=== PATIENT | female | born 1985 | race Caucasian/White ===

== ENCOUNTER 2019-12-08 18:00 | Emergency (ER) | payer OTHER ==
--- OUTSIDE RECORDS SUMMARY | 2019-12-08 18:03 | XMS REPORT | Clinical Summary ---
:1985 Author Organization [facility] Address [address] [place] [address] Care Team Providers Name Role Phone Alaina Zavala MD Primary Care Provider Unavailable Allergies Active Allergy Reactions Severity Noted Date Comments Morphine Other (See Comments) Medium 01/02/2018 Severe vomiting Medications Medication Sig Dispensed Refills Start Date End Date Status ARIPiprazole Inject 1,064 0 Acti ve lauroxil mg into the (ARISTADA) 1,064 shoulder, mg/3.9 mL thigh, or suspension,extend buttocks. ed rel syring [id number] Take 1 tablet 0 02/09/2019 Acti ve carb,olb-BP-iyv-d by mouth dupont (CITRANATAL 90 daily. DHA, ALGAL OIL,) 90 mg iron-1 mg -50 mg-300 mg combo pack busPIRone buspirone 30 mg tablet 0 02/09/2019 Active (BUSPAR) 30 MG TAKE 1 TABLET BY MOUTH THREE TIMES DAILY FOR ANXIETY tablet busPIRone Take 5 mg by 0 Discont inued (BUSPAR) 5 MG mouth 3 9 (Stop Taking at tablet (three) times Discha rge) a day. gabapentin Take 600 mg by 0 Disc ontinued (NEURONTIN) 600 mouth 3 9 (Sto p Taking at mg tablet (three) times Discha rge) a day. ARIPiprazole Take 5 mg by 0 Disc ontinued (ABILIFY) 5 MG mouth daily. 9 (S top Taking at tablet Discharge) buPROPion XL Take 300 mg by 0 Di scontinued (WELLBUTRIN XL) mouth daily. 9 ( Stop Taking at 300 MG 24 hr Dischar ge) tablet buPROPion XL Take 150 mg by 0 Di scontinued (WELLBUTRIN XL) mouth daily. 9 ( Stop Taking at 150 MG 24 hr Dischar ge) tablet ARIPiprazole Take 5 mg by 0 Disc ontinued (ABILIFY) 5 MG mouth daily. 9 (S top Taking at tablet Discharge) buPROPion XL Take 150 mg by 0 Di scontinued (WELLBUTRIN XL) mouth. 9 (Sto p Taking at 150 MG 24 hr Dischar ge) tablet azithromycin Take 1 tablet 3 tablet 0 04/28/2019 Ex pired (ZITHROMAX) 500 (500 mg total) 9 MG tablet by mouth daily for 3 days. oseltamivir Take 1 capsule 10 capsule 0 04/28/2019 E xpired (TAMIFLU) 75 MG (75 mg total) 9 capsule by mouth 2 (two) times a day for 5 days. buPROPion XL Take 1 tablet 30 tablet 0 04/29/2019 Ex pired (FORFIVO XL) 450 (450 mg total) 0 mg 24 hr tablet by mouth daily for 30 days. busPIRone Take 1 tablet 90 tablet 0 04/28/2019 Expir ed (BUSPAR) 30 MG (30 mg total) 0 tablet by mouth 3 (three) times a day for 30 days. Active Problems Problem Noted Date 29 weeks gestation of 04/27/2019 Advanced maternal age in multigravida, third trimester 04/27/2019 Previous section complicating 04/27 Abdominal pain during in third trimester 04/2019 Maternal tobacco use, third trimester 04/27/2019 Influenza A 04/27/2019 affected by growth restriction 019 Tobacco smoking affecting in third trimester 04/27/2019 Respiratory system disease complicating in t hird trimester 04/27/2019 GERD (gastroesophageal reflux disease) 04/27/2019 Cough 04/26/2019 Fever and chills 04/26/2019 Encounters Date Type Specialty Care Team Description 04/26/2019 - Emergency Obstetrics and Gynecology Micheline Albert MD 04/28/2019 after 12/07/2018 Immunizations Name Administration Dates Next Due Rho (D) Immune Globulin 01/02/2018 Social History Tobacco Use Types Packs/Day Years Used Date Current Every Day Smoker Cigarettes 0.5 Smokeless Tobacco: Never Used Tobacco Cessation: Ready to Quit: Yes Comments: pt states she is trying to ottoniel t Alcohol Use Drinks/Week oz/Week Comments Not Currently Sex Assigned at Date Recorded Not on file Job Start Date Occupation Industry Not on file Not on file Not on file Travel History Travel Start Travel End No recent travel history available. Last Filed Vital Signs Vital Sign Reading Time Taken Comments Blood Pressure 106/56 04/28/2019 9:08 AM [employer]IOR SYSTEMS DEVELOPER Pulse 95 04/28/2019 9:08 AM [employer]IOR SYSTEMS DEVELOPER Temperature 36.9 C (98.5 F) 04/28/2019 9:08 AM S[employer]IOR SYSTEMS DEVELOPER Respiratory Rate 20 04/28/2019 9:08 AM SENIOR SYSTEMS DEVELOPER Oxygen Saturation 96% 04/28/2019 8:02 AM SENIOR SYSTEMS DEVELOPER Inhaled Oxygen Concentration - - Weight 83.9 kg (185 lb) 04/26/2019 11:15 PM S[employer]IOR SYSTEMS DEVELOPER Height 157.5 cm (5' 2") 04/26/2019 11:15 PM S[employer]IOR SYSTEMS DEVELOPER Body Mass Index 33.84 04/26/2019 11:15 PM SENIOR SYSTEMS DEVELOPER Plan of Treatment Health Maintenance Due Date Last Done Comments CERVICAL CANCER SCREENING 2004 INFLUENZA VACCINE 12/16/2019 03/13/2019, 05/17/2014 Procedures Procedure Name Priority Date/Time Associated Comments Diagnosis ESTIMATED GFR Routine 04/28/2019 4:48 Results fo r this AM S[employer]IOR SYSTEMS DEVELOPER procedure are i n the results section. BASIC METABOLIC PANEL Routine 04/28/2019 4:48 Re sults for this AM S[employer]IOR SYSTEMS DEVELOPER procedure are i n the results section. HC COMPLETE BLD COUNT Routine 04/28/2019 4:48 Re sults for this W/AUTO DIFF AM S[employer]IOR SYSTEMS DEVELOPER procedure are i n the results section. US LIMITED STAT 04/27/2019 4:39 Res ults for this AM SENIOR SYSTEMS DEVELOPER procedure are i n the results section. XR CHEST 2 VW STAT 04/27/2019 2:51 Results fo r this AM SENIOR SYSTEMS DEVELOPER procedure are i n the results section. ESTIMATED GFR STAT 04/27/2019 12:28 Results fo r this AM S[employer]IOR SYSTEMS DEVELOPER procedure are i n the results section. COMPREHENSIVE STAT 04/27/2019 12:28 Results fo r this METABOLIC PANEL AM SENIOR SYSTEMS DEVELOPER procedure ar e in the results section. HC COMPLETE BLD COUNT STAT 04/27/2019 12:28 Re sults for this W/AUTO DIFF AM S[employer]IOR SYSTEMS DEVELOPER procedure are i n the results section. GRAM STAIN STAT 04/27/2019 12:24 Results for this AM SENIOR SYSTEMS DEVELOPER procedure are i n the results section. URINE CULTURE STAT 04/27/2019 12:24 Results fo r this AM SENIOR SYSTEMS DEVELOPER procedure are i n the results section. STREP SCREEN CULTURE Routine 04/26/2019 11:55 Res ults for this PM S[employer]IOR SYSTEMS DEVELOPER procedure are i n the results section. GROUP A STREP, RAPID STAT 04/26/2019 11:55 Res ults for this ANTIGEN PM SENIOR SYSTEMS DEVELOPER procedure are i n the results section. INFLUENZA ANTIGEN STAT 04/26/2019 11:55 Result s for this TEST, REFLEX NEGATIVE PM SENIOR SYSTEMS DEVELOPER proced ure are in TO RPP the results section. URINE DRUGS OF ABUSE STAT 04/26/2019 11:54 Res ults for this SCREEN PM S[employer]IOR SYSTEMS DEVELOPER procedure are i n the results section. URINALYSIS SCREEN AND STAT 04/26/2019 11:54 Re sults for this MICROSCOPY, WITH PM SENIOR SYSTEMS DEVELOPER procedure a re in REFLEX TO CULTURE the result s section. after 12/07/2018 Results Estimated GFR (04/28/2019 4:48 AM SENIOR SYSTEMS DEVELOPER)Only the most recent of2 resultswithin the time period is included. Pathologist [facility] [place] Estimated GFR >=90 mL/min/1.73 [facility] Comment: m2 [facility] Catergory Units Interpretation G1 >=90 Normal or high G2 60-89 Mildly decreased G3a 45-59 Mildly to moderately decreas ed G3b 30-44 Moderately to severely decre ased G4 15-29 Severely decreased G5 <15 Kidney failure The eGFR was calculated using the Chronic Kidney Disea se Epidemiology Collaboration (CKD-EPI) equation. Interpretation is based on recommendations of the National Kidney Foundation-Kidney Disease Outcomes Solitario lity Initiative (NKF-KDOQI) published in 2014. Specimen Plasma specimen Performing Organization Address City/State/Zipcode Phone Number [facility] DEPARTMENT OF PATHOLOGY AND [address] [place], [place] [address] [facility]IC MEDICINE [facility] [address] [place], [place] [address] CBC with platelet and differential (04/28/2019 4:48 AM SENIOR SYSTEMS DEVELOPER)Only the most recent of2 resultswithin the time period is included. WBC 8.9 4.2 - 11.0 k/uL [facility] RBC 2.90 (L) 4.04 - 5.86 [facility] m/uL [facility] HGB 9.4 (L) 11.5 - 15.3 [facility] g/dL [facility] HCT 28.7 (L) 34.0 - 45.0 % [facility] MCV 99.0 (H) 80.0 - 98.0 fL [facility] MCH 32.4 27.0 - 34.0 pg [facility] MCHC 32.8 31.5 - 36.5 [facility] g/dL [facility] RDW - SD 45.3 37.0 - 51.0 fL [facility] MPV 11.9 (H) 7.4 - 10.4 fL [facility] Platelet count 169 150 - 400 k/uL [facility] Nucleated RBC 0.00 /100 WBC [facility] Neutrophils 76.6 (H) 36.0 - 66.0 % [facility] Lymphocytes 12.9 (L) 24.0 - 44.0 % [facility] Monocytes 9.0 (H) 0.0 - 6.0 % [facility] Eosinophils 0.3 0.0 - 6.0 % [facility] Basophils 0.5 0.0 - 1.2 % [facility] Immature granulocytes 0.7 0.0 - 1.0 % [facility] Specimen Blood Performing Organization Address City/State/Zipcode Phone Number [facility] DEPARTMENT OF PATHOLOGY AND [address] [place], [place] [address] GENOMIC MEDICINE [facility] [address] [place], [place] [address] Basic metabolic panel (04/28/2019 4:48 AM SENIOR SYSTEMS DEVELOPER) Pathologist Sig nature Sodium 137 135 - 150 mEq/L [facility] Potassium 3.1 (L) 3.5 - 5.0 mEq/L [facility] Chloride 105 98 - 112 mEq/L [facility] CO2 19 (L) 24 - 31 mmol/L [facility] Anion gap 13@ANIO 7 - 15 mEq/L [facility] BUN 4 (L) 7 - 18 mg/dL [facility] Creatinine 0.70 0.50 - 0.90 mg/dL [facility] Glucose 98 65 - 100 mg/dL [facility] Calcium 8.0 (L) 8.3 - 10.2 mg/dL [facility] Specimen Plasma specimen Performing Organization Address City/State/Zipcode Phone Number [facility] [place] [address] [place], [place] [address] GENOMIC MEDICINE [facility] [address] [place], [place] [address] [place] Limited (04/27/2019 4:39 AM SENIOR SYSTEMS DEVELOPER) Specimen Narrative Performed At EXAMINATION: US LIMITED RADIANT CLINICAL HISTORY: hx iugr pneumonia TECHNIQUE: Grayscale and color Doppler analysis of the pelvis was performed via transabdominal approach. COMPARISON: None. IMPRESSION: Limited evaluation demonstrates a single intrauterine in breech presentation. Estimated gestational age by LM P is 29 weeks 4 days which gives an MARGE of 07/09/2019. Estimated gest ational age by ultrasound is 27 weeks 6 days. cardiac activity is identified wit h a rate of 169 bpm. The placenta is anterior grade 2 and there is no evide nce of placenta previa or abruption. Amniotic fluid volume is within normal limits given th e gestational age (DAVID is 14.3 cm. Largest pocket measures 4.3 cm.) Cervical length is 5.3 cm. Estimated weight is 1197 g (+/- 179.51 g). (6. 6 percentile by Hadlock calculations) Measurements: *BPD: 7.36 cm *HC: 26.57 cm *AC: 24.51 cm *FL: 5.03 cm Biometry Ratios: *CI: 80.10 *FL/AC: 20.50 *FL/BPD: 68.34 [facility]-[id number] Procedure Note Hm Interface, Radiology Results Incoming - 04/27/2019 5:05 AM SENIOR SYSTEMS DEVELOPER EXAMINATION: US LIMITED CLINICAL HISTORY: hx iugr pneumonia TECHNIQUE: Grayscale and color Doppler a nalysis of the pelvis was performed via transabdominal approach. COMPARISON: None. IMPRESSION: Limited evaluation demonstrates a single intrauterine in breech presentation. Estimated gestational age by LMP is 29 weeks 4 days which gives an MARGE of 07/09/2019. Estimated gestational age by ultrasound is 27 weeks 6 days. cardiac activity is identified wit h a rate of 169 bpm. The placenta is anterior grade 2 and the re is no evidence of placenta previa or abruption. Amniotic fluid volume is within normal l imits given the gestational age (DAVID is 14.3 cm. Largest pocket measures 4.3 cm.) Cervical length is 5.3 cm. Estimated weight is 1197 g (+/- 17 9.51 g). (6.6 percentile by Hadlock calculations) Measurements: *BPD: 7.36 cm *HC: 26.57 cm *AC: 24.51 cm *FL: 5.03 cm Biometry Ratios: *CI: 80.10 *FL/AC: 20.50 *FL/BPD: 68.34 [id number] Performing Organization Address [facility] [place] Number [facility] [address] [place] [address] XR Chest 2 Vw (04/27/2019 2:51 AM SENIOR SYSTEMS DEVELOPER) Specimen Narrative Performed At EXAMINATION: XR CHEST 2 VW RADIANT CLINICAL HISTORY: Cough persistent COMPARISON: None IMPRESSION: Mildly prominent bronchovascular markings may be refle ctive of marginal pneumonia, atypical bacterial pneumonia, or perihilar vascular congestion. Cardiomediastinal silhouette is within n ormal limits of size. Otherwise no focal airspace consolidation is identifie d. No sizable pleural effusion. No pneumothorax identi fied. No acute osseous abnormalities are visua lized. [id number] Procedure Note Hm Interface, Radiology Results Incoming - 04/27/2019 3:00 AM SENIOR SYSTEMS DEVELOPER EXAMINATION: XR CHEST 2 VW CLINICAL HISTORY: Cough persistent COMPARISON: None IMPRESSION: Mildly prominent bronchovascular marking s may be reflective of marginal pneumonia, atypical bacterial pneumonia, or perihilar vascular congestion. Cardiomediastinal silhouette is within n ormal limits of size. Otherwise no focal airspace consolidatio n is identified. No sizable pleural effusion. No pneumothorax identified. No acute osseous abnormalities are visua lized. [facility]-[id number] Performing Organization Address [facility] [place] Phone Number [facility] [address] [place] [address] Comprehensive metabolic panel (04/27/2019 12:28 AM SENIOR SYSTEMS DEVELOPER) Pathologist Sig nature Sodium 136 135 - 150 mEq/L [facility] Potassium 3.5 3.5 - 5.0 mEq/L [facility] Chloride 105 98 - 112 mEq/L [facility] CO2 18 (L) 24 - 31 mmol/L [facility] Anion gap 13@ANIO 7 - 15 mEq/L [facility] BUN 5 (L) 7 - 18 mg/dL [facility] Creatinine 0.70 0.50 - 0.90 [facility] mg/dL [facility] Glucose 97 65 - 100 mg/dL [facility] Calcium 8.5 8.3 - 10.2 mg/dL [facility] Protein 6.0 (L) 6.3 - 8.3 g/dL [facility] Albumin 2.7 (L) 3.5 - 5.0 g/dL [facility] A/G ratio 0.8 0.7 - 3.8 [facility] Alkaline phosphatase 94 0 - 104 U/L [facility] AST 33 10 - 35 U/L [facility] ALT 23 5 - 50 U/L [facility] Total bilirubin <0.3 0.2 - 1.2 mg/dL [facility] Specimen Plasma specimen Performing Organization Address City/State/Zipcode Phone Number [facility] [place] AND [address] [place], [place] [address] [facility] [address] [place], [place] [address] Gram stain (04/27/2019 12:24 AM SENIOR SYSTEMS DEVELOPER) Gram stain result No WBC's or organisms seen. [facility] Comment: HOSPITAL Specimen Information Specimen Source: Urine Specimen Site: Clean catch Specimen Urine Performing Organization Address City/State/Zipcode Phone Number [facility] DEPARTMENT OF PATHOLOGY AND [address] [place], [place] [address] [facility] [address] [place] [address] Urine culture (04/27/2019 12:24 AM SENIOR SYSTEMS DEVELOPER) Urine culture Mixed kerrie <=10-3 col/cc [facility] IST isolate Comment: HOSPITAL Specimen Information Specimen Source: Urine Specimen Site: Clean catch Specimen Urine Performing Organization Address City/State/Zipcode Phone Number [facility] DEPARTMENT OF PATHOLOGY AND [address] [place], [place] [address] [facility] [address] [place] [address] Influenza antigen test, reflex negative to RPP (04/26/2019 11:55 PM SENIOR SYSTEMS DEVELOPER) Pathologist [facility] [place] Influenza antigen Positive for Influenza A antigen. HO [facility] Negative for Flu B [facility] (A) Comment: Specimen Information Specimen Source: Nares Specimen Site: Left Specimen Nares - Left Performing Organization Address City/State/Zipcode Phone Number [facility] [place] AND [address] [place], [place] [address] [facility] [address] [place], [place] [address] Group A strep, rapid antigen (04/26/2019 11:55 PM SENIOR SYSTEMS DEVELOPER) Pathologist [facility] [place] Group A strep, Negative for Group A Streptococcus antigen. [facility] rapid antigen Comment: [facility] result Specimen Information Specimen Source: Throat Specimen Site: Not otherwise specified Specimen Throat - Not otherwise specified Performing Organization Address [facility] Phone Number [facility] [place]Y AND [address] [place], [place] [address] [facility] [address] [place], [place] [address] Strep screen culture (04/26/2019 11:55 PM SENIOR SYSTEMS DEVELOPER) Pathologist [facility] [place] Strep screen No beta hemolytic Streptococci isolated [facility] culture isolate Comment: HOSPITAL Specimen Information Specimen Source: Throat Specimen Site: Not otherwise specified Specimen Throat - Not otherwise specified Performing Organization Address City/State/Zipcode Phone Number [facility] DEPARTMENT OF PATHOLOGY AND [address] [place], [place] [address] [address] Urinalysis screen and microscopy, with reflex to culture (04/26/2019 11:54 PM SENIOR SYSTEMS DEVELOPER) Specimen site Clean catch [facility] Color, UA Yellow [facility] Appearance, UA Clear [facility] Specific gravity, UA 1.018 1.001 - 1.035 [facility] pH, UA 6.0 5.0 - 8.5 [facility] Protein, UA Negative Negative [facility] Glucose, UA Negative Negative [facility] Ketones, UA 1+ (A) Negative [facility] Bilirubin, UA Negative Negative [facility] Blood, UA Negative Negative [facility] Nitrite, UA Negative Negative [facility] Urobilinogen, UA Negative <2.0 [facility] Leukocyte esterase, Trace (A) Negative [facility] Epithelial cells, UA Many /HPF [facility] Round epithelial Moderate 0 - 1 /HPF [facility] cells, UA [facility] WBC, UA 4 0 - 5 /HPF [facility] RBC, UA 1 0 - 5 /HPF [facility] Bacteria, UA Trace None seen [facility] Yeast, UA None seen [facility] Yeast with None seen [facility] pseudohyphae, UA [facility] Specimen Urine Performing Organization Address City/State/Zipcode Phone Number [facility] DEPARTMENT OF PATHOLOGY AND [address] [place], [place] [address] GENOMIC MEDICINE [place] [address] [place], [place] [address] Urine drugs of abuse screen (04/26/2019 11:54 PM SENIOR SYSTEMS DEVELOPER) Amphetamine screen, Negative [place] urine [facility] Barbiturate screen, Negative [place] urine [facility] Benzodiazepine Negative [place] screen, urine [facility] Cocaine screen, urine Negative [facility] Methadone metabolite Negative [place] (EDDP), urine [facility] Opiates screen, urine Negative [facility] Oxycodone screen, Negative [place] urine [facility] Phencyclidine screen, Negative [place] urine [facility] Cannabinoid screen, Negative [place] urine Comment: [place] Drug screen minimum concentration of detectability [place] Amphetamines 1000 ng/mL HOSPITAL Barbiturates 200 ng/mL Benzodiazepines 300 ng/mL Cocaine 300 ng/mL Methadone 300 ng/mL Opiates 300 ng/mL Oxycodone 300 ng/mL Phencyclidine 25 ng/mL Cannabinoids 50 ng/mL Tricyclics 1000 ng/mL Results are from screening tests and should only be used for medical evaluation. Drug testing for legal purposes requires definitive (or confirmatory) testing methods, which are available upon request. Contact the laboratory if definitive testing is requir ed. Specimen Urine Performing Organization Address City/State/Zipcode Phone Number [facility] [place] AND [address] [place], [place] [address] GENOMIC MEDICINE [facility] [address] [place], [place] [address] after 12/07/2018 Insurance Payer Benefit Plan / Subscriber ID Effective Dates Phone Addre ss Type Group [employer] [facility] xxxxxxxxx 2018-Present HMO CHOICE [facility] Advance Directives For more information, please contact: [phone] Type Date Recorded Patient Skate Maker Explanati on Advance Directives, Living Will 12/22/2017 4:05 AM and Medical Power of Director Stars Code Status Date Activated Date Inactivated Comments Full Code 04/26/2019 11:49 PM 04/28/2019 7:07 PM Code Status decision reached by: Patient
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
--- OUTSIDE RECORDS SUMMARY | 2019-12-08 18:10 | XMS REPORT | Continuity of Care Document ---
:1985 Author Organization [facility] t Address [address] [place] [address] Care Team Providers Name Role Phone UNKNOWN Primary Care Physician Unavailable Sloane Doty Attending Clinician Bety CRUZ Attending Clinician Clay Attending Clinician Unavailable Brooks Attending Clinician [phone] Ese Attending Clinician Unavailable Collin Alarcon Attending Clinician Unavailable Chayo Attending Clinician Unavailable Falguni Attending Clinician Unavailable GEE PHILLIPS M.D. Attending Clinician Unavailable Renata Travis Attending Clinician BETY Admitting Clinician Unavailable GEE PHILLIPS M.D. Admitting Clinician Unavailable Rk Krishnamurthy Admitting Clinician [place] Unavailable [phone] Payers Payer Name Policy Type Policy Number Effective Date Expiration Date S fareed [facility]LY [facility] xxxxxxxxx 2018 [facility] 00:00:00 [facility] O Advance Directives Directive Decision Effective Date Termination Date Comments Sour ce Yes N/A [facility] [place] Problems Condition Condition Condition Status Onset Resolution Last Treating Co mments Source Name Details Category Date Date Treatment Clinician Date 29 weeks 29 weeks Disease Active 2018-05 [place] gestation gestation 2-12 Meth joi of of 00:00: st 00 Advanced Advanced Disease Active 2018-05 [place] maternal maternal 2-12 Method i age in age in 00:00: st multigravi multigravi 00 da, third da, third trimester trimester Previous Previous Disease Active 2018-05 [place] 2-12 Method i section section 00:00: st complicati complicati 00 ng ng Abdominal Abdominal Disease Active 2018-05 [place] pain pain 2-12 Methodi during during 00:00: st 00 in third in third trimester trimester Influenza Influenza Disease Active 2018-05 Ha acunan A A 2-12 Methodi 00:00: st 00 Disease Active 2018-05 [place] affected affected 2-12 Method i by by 00:00: st growth growth 00 restrictio restrictio n n Tobacco Tobacco Disease Active 2018-05 [place] smoking smoking 2-12 Methodi affecting affecting 00:00: st 00 in third in third trimester trimester Respirator Respirator Disease Active 2018-05 [place] y system y system 2-12 Method i disease disease 00:00: st complicati complicati 00 ng ng in third in third trimester trimester GERD GERD Disease Active 2018-05 [place] (gastroeso (gastroeso 2-12 Me thodi phageal phageal 00:00: st reflux reflux 00 disease) disease) Cough Cough Disease Active 2018-05 [place] 2-11 Methodi 00:00: st 00 Fever and Fever and Disease Active 2018-05 [place] chills chills 2-11 Methodi 00:00: st 00 Abnormal Condition Active 2018-052019-02-16 Letty Guy egacy chromosoma 0-03 16:25:27 Mima Com [place] l and 00:00: ty genetic 00 Health finding on screening of mother Trichomona Condition Active 2018-052019-02-14 Fernando Guy l 0- 08:10:07 Mima Communi vaginitis 00:00: ty 00 Health History of Condition Active 2019-02-14 Fernando Guy drug abuse 9 08:05:25 Mima Com [place] in 00:00: ty remission 00 Health Supervisio Condition Active 2019-02-09 [place], [facility] n of 02-09 13:17:00 Mima Communi elderly 00:00: ty multigravi 00 Health da, second trimester Supervisio Condition Active 2019-02-09 [place], [facility] n of other 02-09 13:17:00 Mima Com flor high risk 00:00: ty pregnancie 00 Health s, second trimester ACUTE Diagnosis Active 2017-03-29 Mem oria RENAL 11-22 14:02:00 l FAILURE ACUTE 00:00: [place] DUE TO RENAL 00 RHABDOMYOL FAILURE YSI DUE TO RHABDOMYOL YSI Active 11/22/2016 [facility] CHEST Diagnosis Active 2016-11-22 Mem oria TRAUMA 11-22 21:58:00 l CHEST 00:00: Sp TRAUMA 00 Active 11/22/2016 [facility] Problem Condition [facility] History of Problem Resolve 2016-12-04 Memoria cholecyste d 00:55:05 l ctomy History [place] (situation of ) cholecyste ctomy (situation ) Resolved Problem 12/04/2016 [facility] Asthma Problem Resolve 2016-12-04 Torsten sacha (disorder) d 00:55:05 l Asthma [place] (disorder) Resolved Problem 12/04/2016 [facility] Bipolar Problem Resolve 2016-12-04 Mem oria disorder d 00:55:05 l (disorder) Bipolar Her mccarty disorder (disorder) Resolved Problem 12/04/2016 [facility] ACUTE Diagnosis Active 2017-03-29 Mem oria KIDNEY 14:02:00 l FAILURE, ACUTE Sp UNSPECIFIE KIDNEY D FAILURE, UNSPECIFIE D Active [facility] History of Past Illness Condition Condition Condition Status Onset Resolution Last Treating Co mments Source Name Details Category Date Date Treatment Clinician Date 18 Weeks Condition Inactiv 2019-02-16 2019-02-09 [place], [facility] Gestation e 02-09 00:00:00 13:17:00 Mima Co mmuni of 00:00: ty 00 Health Allergies, Adverse Reactions, Alerts Allergy Allergy Status Severity Reaction(s) Onset Inactive Treating Comm ents Source Name Type Date Date Clinician Morphine Propensi Active Other (See 2018-0 Severe [place] ty to Comments) 8-19 vomiting Metho di adverse 00:00: st reaction 00 s to drug No Known Allergy Active 2016-05 [facility] Drug to 0-09 S - St. Allergie substanc 00:00: Marc 00 th Social History Social Habit Start Date Stop Date Quantity Comments Source History of tobacco Cigarette Smoker [place] use Islam Sex Assigned At [place] Islam Cigarettes smoked 2019-10-01 2019-10-01 [place] current (pack per 00:00:00 00:00:[address] ) - Reported Alcohol intake 2019-10-01 2019-10-01 Ex-drinker [place] 00:00:00 00:00:00 (finding) Islam Tobacco Comment 2019-04-27 2019-04-27 pt states she is [place] 00:00:00 00:00:00 trying to quit Islam time of call 2019-02-22 2019-02-22 02/22/2019 8:48 AM [place] 08:48:27 08:48:27 [facility] smoking/tobacco 2019-02-09 2019-02-09 Complete [facility] cessation, patient 10:38:39 10:38:39 Commun ity education and Health counseling sexual orientation 2019-02-09 2019-02-09 heterosexual [place] 10:38:39 10:38:39 [facility] social history E&M 2019-02-09 2019-02-09 Patient has a Leg acy 10:38:39 10:38:39 history of alcohol Commun ity use and drug abuse, Healt h which was methamphetamine. Patient still smokes tobacco, just about ten to fifteen cigarettes a day currently in sexual 2019-02-09 2019-02-09 only one partner at Legacy relationship with 10:38:39 10:38:39 a time Communi ty Health cat exposure during 2019-02-09 2019-02-09 no Legac y 10:38:39 10:38:39 Community Health Have you traveled 2019-02-09 2019-02-09 No [facility] to any zika virus 10:38:39 10:38:39 Communi ty infected areas? Health Social History 2016-11-23 2016-11-23 [facility] 10:09:36 10:09:36 Sp Smoking Status Start Date Stop Date Source Current every day smoker 2019-10-01 00:00:00 [place] Islam Medications Ordered Filled Start Stop Current Ordering Indication Dosage Frequency Signature Comments Components Source Medication Medication Date Date Medication? Clinician (SIG) Name Name buPROPion 2018-05- No 450mg QD Take 1 [place] XL (FORFIVO 06-30 tablet Metho di XL) 450 mg 00:00: 23:59 ([address] 24 hr 00 :00 total) by tablet mouth daily for 30 days. busPIRone 2018-05- No 5mg Q.[id number] Take 5 mg Rivas (BUSPAR) 5 06-29 [id number] by mouth 3 Methodi MG tablet 15:07: 00:00 3D (three) st 24 :00 times a day. gabapentin 2018-05- No 600mg Q.[id number] Take 600 Rivas (NEURONTIN) 06-29 [id number] mg by Methodi 600 mg 15:07: 00:[address] tablet 24 :00 (three) times a day. ARIPiprazol 2018-05- No 5mg QD Take 5 mg Rivas e (ABILIFY) 06-29 by mouth Met hodi 5 MG tablet 15:07: 00:[address] 24 :00 buPROPion 2018-05- No 300mg QD Take 300 [place] XL -28 04- mg by Methodi (WELLBUTRIN 15:07: 00:[address] XL) 300 MG 24 :00 daily. 24 hr tablet buPROPion 2018-05- No 150mg QD Take 150 [place] XL -28 04- mg by Methodi (WELLBUTRIN 15:07: 00:[address] XL) 150 MG 24 :00 daily. 24 hr tablet ARIPiprazol 2018-05- No 5mg QD Take 5 mg Rivas e (ABILIFY) 06-29 by mouth Met hodi 5 MG tablet 15:07: 00:[address] 24 :00 buPROPion 2018-05- No 150mg Take 150 [place] XL -28 04- mg by Methodi (WELLBUTRIN 15:07: 00:[address] XL) 150 MG 24 :00 24 hr tablet ARIPiprazol 2018- Yes 1064mg Inject [place] e lauroxil 2-13 1,064 mg Metho di (ARISTADA) 15:07: into the st 1,064 18 shoulder, mg/3.9 mL thigh, or suspension, buttocks. extended rel syring busPIRone 2018-05- No 30mg Q.[id number] Take 1 Rivas (BUSPAR) 30 06-29 [id number] tablet (30 Methodi MG tablet 00:00: 23:59 3D mg total) st 00 :00 by mouth 3 (three) times a day for 30 days. oseltamivir 2018-05- No 75mg Q.5D Take 1 [place] (TAMIFLU) 06-2918 capsule Method i 75 MG 00:00: 23:59 ([address] capsule 00 :00 total) by mouth 2 (two) times a day for 5 days. azithromyci 2018-05 No 500mg QD Take 1 Topher pineda n 06-29 1216 tablet Methodi (ZITHROMAX) 00:00: 23:59 ([address] 500 MG 00 :00 total) by tablet mouth daily for 3 days. Penicillin 2018-05 No 500mg TIFFANI U V Potassium 0-31 S - St. 18:26: Eliz[place] Promethazin 2018-05 No 12.5mg CHRI HECTOR e Hcl 0-23 S - St. 14:51: Eliz[place] Promethazin 2018-05 No 12.5mg CHRI HECTOR e Hcl 0-23 S - St. 14:51: Eliz[place] Promethazin 2018-05 No 12.5mg CHRI HECTOR e Hcl 0-23 S - St. (Phenergan) 14:51: Elizab e 12.5 Mg TAB FLAGYL 2018-05 Yes Mima Take four Leg acy (METRONIDAZ 0-01 Brooks in a Communi OLE) 500 MG 00:00: single ty TABS 00 dose Health (DIPHENHYDR Yes One at [place] AMINE HCL) 9 bedtime at Com flor 50 MG CAPS 00:00: needed ty 00 Health (BUSPIRONE Yes 1{Table 2xD One twice [facility] HCL) 30 MG 9-26 t} daily as Commu ni TABS 00:00: needed ty 00 Health ARISTADA Yes One every [place] (ARIPIPRAZO 02-09 two months Co mmuni LE 00:00: IM ty LAUROXIL) 00 Health 1064 MG/3.9ML PRSY WELLBUTRIN Yes 1.5{Tab 1xD Take 1-1/2 [facility] XL 02-09 let} tablet Communi (BUPROPION 00:00: daily ty HCL) 300 MG 00 Health [id number] PREVACID Yes Mima Take one [place] (LANSOPRAZO 02-09 [place] every Communi LE) 15 MG 00:00: night ty CPDR 00 Health CITRANATAL Yes Mima Take daily Legacy 90 DHA 02-09 [place] Communi (PRENAT W/O 00:00: ty A-FECBGL-DS 00 Health S-FA-DHA) 90-1 & 300 MG DICLEGIS Yes Mima Take two [place] (DOXYLAMINE 02-09 [place] at bedtime Co mmuni -PYRIDOXINE 00:00: and september ) 10-10 MG 00 take Health TBEC another in a.m. and another midafterno on if needed [id number] Yes 1{tbl} QD Take 1 [place] st[place] carb,glu-FA 02-09 tablet by [facility] mouth st (CITRANATAL 00 daily. 90 DHA, ALGAL OIL,) 90 mg iron-1 mg -50 mg-300 mg combo pack busPIRone Yes buspirone Ha ston (BUSPAR) 30 02-09 30 mg Methodi MG tablet 00:00: tablet st 00 TAKE 1 TABLET BY MOUTH THREE TIMES DAILY FOR ANXIETY olanzapine Yes 10 mg = 1 Me moria 10 MG Oral 7-18 tab, PO, l Tablet 19:46: Daily, Sp [Zyprexa] 00 Take unless told otherwise by your psychiatri st, # 30 tab, 0 Refill(s), Pharmacy: [facility] [id number] escitalopra Yes 20 mg = 1 M emoria m 20 mg 7-17 tab, PO, l oral tablet 17:15: Darío BEST 00 before noon, 0 Refill(s) busPIRone Yes 30 mg = 2 Mem oria 15 mg oral 7-17 tab, PO, l tablet 17:15: BID, 0 [place] 00 Refill(s) buPROPion Yes 300 mg = 1 Me moria 300 mg/24 7-17 tab, PO, l hours (XL) 17:15: QAM, [place] oral 00 Before tablet, noon, 0 extended Refill(s) release lithium 300 Yes 300 mg = 1 Memoria mg oral 7-17 tab, PO, l tablet 17:15: BID, 0 [place] 00 Refill(s) gabapentin Yes 300 mg = Mem oria 600 MG Oral 7-17 0.5 tab, l Tablet 17:15: PO, TID, 0 Mariel nn 00 Refill(s) heparin No Notes: Memoria sodium, 7-15 porcine l porcine 21:00: heparin [place] 2500 UNT/ML 00 Injectable Solution potassium No Notes: Memori a chloride 7-11 (Same as: l 13:09: Potassium [place] 00 Chloride) Zyprexa No Notes: Memoria 7-11 (Same as: l 02:00: ZyPREXA) [place] lithium No Notes: Memoria 7-10 Give with l 14:00: food. Sp 00 (Same as: Eskalith) gabapentin No Notes: Memor ia 600 MG Oral 7-10 (Same as: l Tablet 14:00: Neurontin) Mariel nn Buspirone No Notes: Memori a 7-10 (Same As: l 14:00: BuSpar) Sp Escitalopra No Notes: Torsten sacha m 7-10 (Same as: l 14:00: Lexapro) Sp buPROPion No Notes: Memori a 24 hour 7-10 (Same as: l extended 14:00: Wellbutrin Her mccarty release 00 XL) "Do Not Crush" Haldol No Notes: Memoria 7-10 (Same as: l 13:50: Haldol) Sp 00 Haldol No Notes: Memoria 7-10 (Same as: l 13:49: Haldol) [place] Acetaminoph No Notes: Do M emoria en 300 MG / 7-10 not exceed l Codeine 13:49: 4gm/day of Herm lashawn Phosphate 00 acetaminop 30 MG Oral hen. Tablet (Same as: [Tylenol Tylenol with with Codeine #3] Codeine # 3) tramadol No Notes: Not Mem oria hydrochlori 7-10 to exceed l de 50 MG 13:49: 400mg/day. Her mccarty Oral Tablet 00 (Same As: [Ultram] Ultram) escitalopra No 20 mg = 1 M emoria m 20 mg 7-10 tab, PO, l oral tablet 09:57: Daily, # He rmann 00 30 tab, 0 Refill(s) buPROPion No 300 mg, Memor ia 24 hour 7-10 PO, Daily, l extended 09:57: 0 Sp release 00 Refill(s) busPIRone No 30 mg = 1 Mem oria 30 mg oral 7-10 tab, PO, l tablet 09:57: TID, # 60 Darío n 00 tab, 0 Refill(s) gabapentin No 600 mg = 1 M emoria 600 MG Oral 7-10 tab, PO, l Tablet 09:57: TID, # 270 Mariel nn 00 tab, 0 Refill(s) lithium 300 No 300 mg = 1 Memoria mg oral 7-10 tab, PO, l tablet 09:57: TID, # 90 Darío n 00 tab, 0 Refill(s) Acetaminoph No Notes: Max Memoria en 7-10 acetaminop l 09:57: hen 4000 [place] 00 mg/day (4 gm/day). (Same as: Tylenol Extra Strength) Nicotine No Notes: Memoria 7-10 (Same as: l 09:56: Habitrol) [place] 00 "Remove old patch before applicatio n of new patch" WASTE: F/P - P Waste Black; E - P Waste Black Isolyte S No Notes: Memori a (PH 7.4) -10 (Same as: l 1000 mL 09:55: Isolyte S Mariel nn 1,000 mL 00 PH 7.4) Sodium No 1,000 mL, Memori a Chloride 7-10 Infuse l 0.154 08:08: Over: 1 Sp MEQ/ML 00 hr, Route: Injectable IV, ONCE, Solution Priority: STAT, kg, Start date: 11/23/16 3:08:00 CDT, Duration: 1 doses or times, Stop date: 11/23/16 3:08:00 CDT iodixanol No 100 mL, Memor ia 710 Route: l 05:43: IVP, Drug Sp 00 Form: SOLN, kg, ONCALL, STAT, Start date: 11/23/16 0:43:00 CDT, Duration: 1 doses or times, Dose = 2.2ml/kg, Max dose = 150ml -- "To be infused by Radiology Staff ONLY" Ativan No Notes: Memoria 710 (Same as: l 05:26: Ativan) Acetaminoph No Notes: Do M emoria en 11-23 not exceed l 05:02: 4 gm/day. [place] (Same as: Tylenol) Sodium No 1,000 mL, Memori a Chloride 7-10 1000 l 0.154 01:42: ml/hr, Sp MEQ/ML 00 Infuse Injectable Over: 1 Solution hr, Route: IV, 1,000, Drug form: INJ, ONCE, Priority: STAT, kg, Start date: 11/22/16 20:42:00 CDT, Duration: 1 doses or times, Stop date: 11/22/16 20:42:00 CDT Immunizations Ordered Immunization Filled Immunization Date Status Commen ts Source Name Name Rho (D) Immune 2018-01-02 Completed [place] Globulin 00:00:00 Islam Vital Signs Vital Name Observation Time Observation Value Comments Source Systolic blood 2019-04-28 09:08:00 106 mm[Hg] Stephanie n Islam pressure Diastolic blood 2019-04-28 09:08:00 56 mm[Hg] Artem on Islam pressure Heart rate 2019-04-28 09:08:00 95 /min Rob Tejada Body temperature 2019-04-28 09:08:00 36.94 Rachel Maria Elena ton Islam Respiratory rate 2019-04-28 09:08:00 20 /min Maria Elena Tejada Oxygen saturation in 2019-04-28 08:02:00 96 /min Rob Tejada Arterial blood by Pulse oximetry Body height 2019-04-26 23:15:00 157.5 cm Rob Tejada Body weight 2019-04-26 23:15:00 83.915 kg Rob Tejada BMI 2019-04-26 23:15:00 33.84 kg/m2 Rob Tejada Body Temperature 2019-03-16 18:33:00 98.0 [degF] [facility] [place] Heart Rate 2019-03-16 18:33:00 101 /min [facility] [place] Respiratory rate 2019-03-16 18:33:00 20 /min [facility] [place] BP Systolic 2019-03-16 18:33:00 129 mm[Hg] [facility] [place] BP Diastolic 2019-03-16 18:33:00 66 mm[Hg] [facility] [place] Heart Rate 2019-03-16 18:15:00 101 /min [facility] [place] Respiratory rate 2019-03-16 18:15:00 20 /min [facility] [place] BP Systolic 2019-03-16 18:15:00 129 mm[Hg] [facility] [place] BP Diastolic 2019-03-16 18:15:00 66 mm[Hg] [facility] [place] Body Temperature 2019-03-08 15:08:00 98.3 [degF] [facility] [place] Heart Rate 2019-03-08 15:08:00 72 /min [facility] [place] Respiratory rate 2019-03-08 15:08:00 20 /min [facility] [place] BP Systolic 2019-03-08 15:08:00 102 mm[Hg] [facility] [place] BP Diastolic 2019-03-08 15:08:00 66 mm[Hg] [facility] [place] Weight 2019-03-08 10:34:00 176 [lb_av] [facility] [place] BMI (Body Mass 2019-03-08 10:34:00 32.2 kg/m2 TIFFANI US - St. Index) Sammi Heart Rate 2019-03-08 10:11:00 84 /min [facility] [place] Respiratory rate 2019-03-08 10:11:00 20 /min [facility] [place] BP Systolic 2019-03-08 10:11:00 103 mm[Hg] [facility] [place] BP Diastolic 2019-03-08 10:11:00 55 mm[Hg] [facility] [place] Heart Rate 2016-12-01 13:50:00 [facility] [place] Temperature Oral (F) 2016-12-01 13:50:00 98 F [facility] Sp Respitory Rate 2016-12-01 13:50:00 Memori al Sp Systolic (mm Hg) 2016-12-01 13:50:00 Torsten rial [place] Diastolic (mm Hg) 2016-12-01 13:50:00 Mem orial Sp Heart Rate 2016-12-01 05:19:00 [facility] [place] Respitory Rate 2016-12-01 05:19:00 Memori al Sp Systolic (mm Hg) 2016-12-01 05:19:00 Torsten rial Sp Diastolic (mm Hg) 2016-12-01 05:19:00 Mem orial Sp Temperature Oral (F) 2016-12-01 05:19:00 98.0 F [facility] Sp Heart Rate 2016-12-01 01:45:00 Memorial Sp Respitory Rate 2016-12-01 01:45:00 Memori al Sp Systolic (mm Hg) 2016-12-01 01:45:00 Torsten rial Sp Diastolic (mm Hg) 2016-12-01 01:45:00 Mem orial [place] Temperature Oral (F) 2016-12-01 01:45:00 98.1 F [facility] [place] Weight 2016-11-23 10:00:00 [facility] [place] BMI Calculated 2016-11-23 10:00:00 Memori al [place] Height 2016-11-23 10:00:00 152.4 cm [facility] Sp Procedures Procedure Date / Time Performing Clinician Source Performed Minor level established 2019-09-28 00:00:00 [facility] - St. patient office visit Sammi HC COMPLETE BLD COUNT 2019-04-28 04:48:00 Alexandro Marion on Islam W/AUTO DIFF Romeo BASIC METABOLIC PANEL 2019-04-28 04:48:00 Alexandro Marion on Islam Romeo ESTIMATED GFR 2019-04-28 04:48:00 Doni Alexandro Rob Met hiren Walters US LIMITED 2019-04-27 04:39:12 Micheline Albert XR CHEST 2 VW 2019-04-27 02:51:28 Micheline Albert Meth odist HC COMPLETE BLD COUNT 2019-04-27 00:28:00 Micheline Albertist W/AUTO DIFF COMPREHENSIVE METABOLIC 2019-04-27 00:28:00 Micheline Albert Islam PANEL ESTIMATED GFR 2019-04-27 00:28:00 Micheline Albert Meth odist URINE CULTURE 2019-04-27 00:24:00 Micheline Albert odmonty GRAM STAIN 2019-04-27 00:24:00 Micheline Albert odmonty INFLUENZA ANTIGEN TEST, 2019-04-26 23:55:00 Micheline Albert REFLEX NEGATIVE TO RPP GROUP A STREP, RAPID 2019-04-26 23:55:00 Micheline Albert ANTIGEN STREP SCREEN CULTURE 2019-04-26 23:55:00 Micheline Albert URINALYSIS SCREEN AND 2019-04-26 23:54:00 Micheline Albert MICROSCOPY, WITH REFLEX TO CULTURE URINE DRUGS OF ABUSE 2019-04-26 23:54:00 Micheline Albert SCREEN Limited obstetrical 2019-03-08 00:00:00 [facility] - St. ultrasound Sammi ROUTINE VENIPUNCTURE 2019-03-08 00:00:00 DIALLO S - [place] OB US LIMITED FETUS(S) 2019-03-08 00:00:00 AMY HAGER - [place] COMPREHEN METABOLIC PANEL 2019-03-08 00:00:00 [facility] - [place] DRUG TEST PRSMV CHEM 2019-03-08 00:00:00 CHRI[facility] S - St. ANLYZR Sammi URINALYSIS AUTO W/O SCOPE 2019-03-08 00:00:00 CH [facility] - [place] COMPLETE CBC W/AUTO DIFF 2019-03-08 00:00:00 [facility] I[facility] - St. WBC Sammi URINE CULTURE/COLONY COUNT 2019-03-08 00:00:00 C HRSITA - [place] HYDRATE IV INFUSION ADD-ON 2019-03-08 00:00:00 C [facility] [place] THER/PROPH/DIAG INJ IV 2019-03-08 00:00:00 AMY Schaeffer PUSH Sammi EMERGENCY DEPT VISIT 2019-03-08 00:00:00 DIALLO S - [place] Metoclopramide hcl 2019-03-08 00:00:00 [facility] - St[facility] injection Sammi Normal saline solution 2019-03-08 00:00:00 AMY HAGER - [facility] infus Sammi Urinalysis - - 2019-02-09 11:10:41 [place], Mima Leg acy [facility] Caesarean section [facility] nn Cholecystectomy [facility] Plan of Care Planned Activity Planned Date Details Comments Source Future Scheduled Test 2019-12-16 INFLUENZA VACCINE [place] Islam 00:00:00 [code = INFLUENZA VACCINE] Future Scheduled Test 2004 Screening for [place] Islam 00:00:00 malignant neoplasm of cervix (procedure) [code = 534618222] Future Scheduled Test Bacterial urine [facility] I[facility] - St. culture [code = Sammi 630-4] Goal Patient referral [facility] - St. [code = 1714078 ] Sammi Goal Patient referral [facility] - St. [code = 7146666 ] Sammi Goal Patient referral [facility] - St. [code = 0495986 ] Sammi Instructions Nausea and Vomiting [facility] - St. of (DC) Sammi Instructions Tooth Decay, Adult [facility] [place] Instructions Dental Pain (DC) [facility] [place] Encounters Start End Encounter Admission Attending Care Care Encounter Source Date/Time Date/Time Type Type Clinicians Facility Department ID 2017-02-13 Inpatient C [facility] [id number] Medical 21:30:00 [facility] 2019-09-28 2019-10-15 Discharged ROSE MARIE BACA [id number] [facility] 13:43:00 23:59:[address] 09 S - [place] Elizab e th 2019-06-09 2019-06-09 Telephone [facility] [id number] 00:00:00 00:00:00 Sloane C OPEN PIT QUARRY SUPERVISOR [id number] REGIONAL [id number] MATERNAL [id number] & CHILD 109 [facility] 2019-06-07 2019-06-07 Telephone [facility] [id number] 00:00:00 00:00:00 Sloane C OPEN PIT QUARRY SUPERVISOR [id number] REGIONAL [id number] MATERNAL [id number] & CHILD 109 [facility] 2019-06-01 2019-06-01 Routine [facility] [id number] 13:20:35 13:52:57 Sloane C OPEN PIT QUARRY SUPERVISOR [id number] Visit REGIONAL [id number] MATERNAL [id number] & CHILD 109 [facility] 2019-05-30 2019-05-30 Case [facility] [id number] 00:00:00 00:00:00 Management Sloane C OPEN PIT QUARRY SUPERVISOR [id number] REGIONAL [id number] MATERNAL [id number] & CHILD 109 [facility] 2019-04-26 2019-04-28 Emergency [facility] 001 [id number] [place] 00:00:00 00:00:00 MICHELINE Joel i 2019-03-16 2019-03-16 Departed ROSE MARIE BACA [id number] [facility] 18:07:00 18:34:[address] - [address] Room Sammi Elizab e 2019-03-08 2019-03-08 Departed ROSE MARIE BACA [id number] [facility] 10:04:00 15:08:[address] S - St[address] Room Sammi Elizab e 2019-02-22 2019-02-22 Office Clay [facility] Adult Encount er/ Legacy 00:00:00 00:00:00 Visit [facility] [id number] [id number] 2019-02-21 2019-02-21 Office [place], HARSHA Legacy Encounter/ Legacy 00:00:00 00:00:00 Visit Mima [place] [id number] Com flor Reisgg [id number] ty [employer] P[employer] SUPERVISOR Health 2019-02-16 2019-02-16 Office [place], HARSHA Legacy Encounter/ Legacy 00:00:00 00:00:00 Visit Mima [place] [id number] Com flor Luiz [id number] ty OPEN PIT QUARRY SUPERVISOR Health 2019-02-16 2019-02-16 Office HARSHA Mulligan Legacy Encoun ter/ Legacy 00:00:00 00:00:00 Visit Jeanie [place] [id number] Com flor Luiz [id number] ty OPEN PIT QUARRY SUPERVISOR Health 2019-02-15 2019-02-15 Office Jeanie Mulligan Legacy E ncounter/ Legacy 00:00:00 00:00:00 Visit Mima Guy [id number] Donniei Luiz [id number] ty OPEN PIT QUARRY SUPERVISOR Health 2019-02-14 2019-02-14 Office EseHARSHA woody Legacy Encoun ter/ Legacy 00:00:00 00:00:00 Visit Jeanie [place] [id number] Com flor Luiz [id number] ty OPEN PIT QUARRY SUPERVISOR Health 2019-02-14 2019-02-14 Office HARSHA Guy Legacy Encounter/ Legacy 00:00:00 00:00:00 Visit Mima [place] [id number] Com flor Luiz [id number] ty OPEN PIT QUARRY SUPERVISOR Health 2019-02-10 2019-02-10 Office [place] amaya Legacy Encounter/ Legacy 00:00:00 [id number] [place] [id number] ty [employer] [facility] 2019-02-10 2019-02-10 Office HARSHA Guy Legacy Encounter/ Legacy 00:00:00 00:00:00 Visit Mima [place] [id number] Com [place] [id number] ty [employer] Health 2019-02-10 2019-02-[address] Encoun [address]/ Legacy 00:00:00 00:00:00 Visit Jeanie [place] [id number] [facility] flor Reisgg [id number] ty [employer] Health 2019-02-10 2019-02-10 Office [place] Legacy Encounter/ Legacy 00:00:00 00:00:00 Visit [facility] [id number] [facility] flor [place] [id number] ty [employer] Health 2019-02-10 2019-02-10 Office Jeanie Mulligan [facility] Legacy E ncounter/ Legacy 00:00:00 00:00:00 Visit Cheri Alarcon [place] [id number] [facility] [id number] [facility] [employer] [facility] 2019-02-09 2019-02-09 Office [place] Legacy Encounter/ Legacy 00:00:00 00:00:00 Visit [facility] [id number] [facility] flor Luiz [id number] ty Pediatrics Healt [facility] 2019-02-09 2019-02-09 Office [place], [facility] Legacy Encounter/ Legacy 00:00:00 00:00:00 Visit [facility] [id number] [facility] flor [place]iz [id number] ty [employer] Health 2019-02-09 2019-02-09 Office [place], Mima LC Legacy Enco unter/ Legacy 00:00:00 00:00:00 Visit Jeanie Mull[place] [id number] [facility] [id number] [facility] 2019-02-09 2019-02-09 Office [place] Legacy Encounter/ Legacy 00:00:00 00:00:00 Visit [facility] [id number] [facility] [place] [id number] ty Pediatrics Healt [facility] 2019-02-09 2019-02-09 Office Jeanie Mulligan [facility] Legacy E ncounter/ Legacy 00:00:00 00:00:00 Visit Emilia Domingo [place] [id number] [facility] 321209 ty [employer] Health 2019-02-09 2019-02-09 Office [place] Legacy Encounter/ Legacy 00:00:00 00:00:00 Visit [facility] [id number] [facility] [place] 605145 ty [employer] Health 2019-02-09 2019-02-09 Office [place], Mima [facility] Legacy Enco unter/ Legacy 00:00:00 00:00:00 Visit Jeanie Mulligan [place] [id number] Cheri Pinzon [place] 31 1640 ty [employer] Health 2019-02-09 2019-02-[address] [facility] Legacy Encounte r/ Legacy 00:00:00 00:00:00 Visit Esther [place] [id number] Com [place] 144226 ty Pediatrics Healt h 2016-11-22 2016-12-01 Outpatient Thaddeus [facility] [id number] 20:16:00 12:03:00 Omayrabenny Yanez Results Test Description Test Time Test Comments Results Result Comments Source APTIMA GONORRHEA/CHLAMYDIA 2019-12-02 20:11:00 Test Item Value Reference Range Interpretation Comme nts CHLAMYDIA TRACHOMATIS, CUATE (test Negative Negative code = GENPROCH) NEISSERIA GONORRHOEAE, CUATE (test Negative Negative Performed at: [facility] code = GENPROGC) [place] [address] [address] [place], [place] [id number] Lab D irector: Yasmeen Plummer MD, Phone : [phone] US PELVIS NON-OB [id number] 08:35:[address] [address]VREQFYEBYF IMAGING REPORTPatient Name: JULIA LONG LDate of Service: [id number]: 34 Sex: F Order #: [id number] Room: ERSDOB: 1985 X-Ray Number: [id number] Record Number: [id number] Hospital Number: [id number] Physician: MICHAEL RAMOS - Ordering Physician: ARLIN DIOR sonogram.History: Pelvic pain, UTI symptomsTechnique: Transabdominal pelvic ultrasound images were obtained and reviewed.Findings:The uterus measures 9.7 x 4.4 x 4.9 cm. The uterus is anteverted. Noevidence of a uterine mass. The endometrial stripe measures 1.0 cm. Thereis a small endometrial fluid collection.Right ovary: The right ovary measures 3.2 x 1.8 x 2.9 cm. There appears lea color Doppler flow in the right ovary although evaluation is limited dueto obscuring bowel gas. There are multiple right ovarian follicles.Left ovary: The left ovary measures 3.3 x 2.0 x 3.1 cm. There is normalcolor Doppler flowin the left ovary. There are multiple left ovarianfollicles.No evidence of free fluid in the pelvis.Limited evaluation of bladder is unremarkable.Impression1. There is a small endometrial fluid collection.2. Evaluation of the right ovary is limited due to obscuring bowel gas.Electronically Signed By: Geovanni Peterson M.D., 11/29/2019 8:33 AMLegally authenticated by JULIANNE MACIAS JR 2019-11-29 08:33:04[facility] 2019-11-29 05:02:00 Test Item Value Reference Range Interpretation Comments SODIUM (test code = 139 MMOL/L 137-145 NA) K+ (test code = 4.2 MMOL/L 3.5-5.1 KSERUM) CHLORIDE (test code 104 MMOL/L 98-107 = CL) CO2 (test code = 27 MMOL/L 22-30 CO2) BUN (test code = 15 MG/DL 7-17 BUN) CREA (test code = 0.9 MG/DL 0.7-1.2 CREA) GLUCOSE (test code 89 MG/DL 70-99 Fasting glucose = GLUCOSE) normal <100 MG/ DL- [employer] recommendation* * CALCIUM (test code 10.0 MG/DL 8.4-10.2 = CABLOOD) TOTPROT (test code 7.4 G/DL 6.3-8.2 = TOTPROT) ALBUMIN (test code 4.4 G/DL 3.5-5.0 = ALBSERUM) BILITOT (test code 0.3 MG/DL 0.2-1.3 = BILITOT) AST (test code = 35 U/L 15-46 AST) PHOSALK (test code 108 U/L 38-126 = PHOSALK) ALTV (test code = 35 U/L 13-69 ALTV) GFR (test code = 75 A GFR of >9 0 GFR) mL/min/1.73m2 mL/min/1.73m2 is considered norm al. [place]/[id number] 04:24:00 Test Item Value Reference Range Interpretation Comments Report Text (test code = CKA 2019-11-29 424 Report Text) Report Text7 (test code = NO TRICHOMONAS SEEN Report Text7) Report Text8 (test code = NO YEAST SEEN Report Text8) [id number] 03:39:00 Test Item Value Reference Range Interpretation Comments WBC (test code = 10.7 K/UL 3.5-10.9 WBC) RBC (test code = 4.97 M/UL 4.0-5.0 RBC) HGB (test code = 14.6 G/DL 11.5-15.5 HGB) HCT (test code = 46.3 % 34-46 H HCT) MCV (test code = 93.2 FL 80-98 MCV) MCH (test code = 29.4 PG 28-32 MCH) MCHC (test code = 31.5 G/DL 32.5-36.5 L MCHC) RDW (test code = 14.2 % 11.5-14.5 RDW) PLT (test code = 261 K/UL 150-450 PLT) MPV (test code = 11.1 FL 7.4-10.4 H MPV) MANDIFF (test code = NO MANDIFF) SCAN (test code = NO SCAN) NEUT% (test code = 69.2 % 40-75 NEUT%) LYMPH% (test code = 20.0 % 24-44 L LYMPH%) MONO% (test code = 9.1 % 0-13 MONO%) EOS% (test code = 1.2 % 0-4 EOS%) BASO % (test code = 0.3 % 0-2 BASO%) IG (test code = IG) 0 % 0-1 IG% (test code = 0.2 % 0-1 IG% = Metam yelocytes, IG%) Myelocytes, and Promyelocytes. (Immature neutr ophils not including " bands".) > 3% IG indic ates risk of sepsis NRBC% (test code = 0 /100 WBC NRBC%) ABS NEUT (test code 7.4 K/UL 1.2-7.2 H = NEUT) [id number] 00:45:00 Test Item Value Reference Range Interpretation Comments GLUCOSE (test code = URGLU) 100 MG/DL NEG-100 BILIRUBN (test code = URBILI) SMALL NEGATIVE KETONE (test code = URKET) TRACE MG/DL NEGATIVE BLOOD (test code = URBLD) LARGE UR PH (test code = URPH) 6.0 5.0-7.5 PROTEIN (test code = URPRO) >=1000 MG/DL NEGATIVE NITRITES (test code = URNIT) NEGATIVE NEGATIVE UROBILINGEN (test code = URURO) 1.0 EU/DL 0.2-1.0 LEUKOCYT (test code = URLEU) LARGE NEGATIVE UA COLOR (test code = UA COLOR) DARK YELLOW YELLOW CLARITY (test code = CLARITY) TURBID CLEAR SP GRAV (test code = URSPGRAV) 1.035 1.000-1.025 H UAMICRO (test code = UAMICRO) YES WBC (test code = URWBC) >900 /HPF 0-5 H RBC (test code = URRBC) 370 /HPF 0-2 H CASTS (test code = CAST) 351 /LPF 0-3 H CASTTYPE (test code = CASTTYPE) HYALINE UR EPI (test code = EPI) 101 /LPF BACTERIA (test code = BACTERIA) TRACE NONE B-HCG QUAL (KIT)2019-11-29 00:40:00 Test Item Value Reference Range Interpretation Comments HCGQUAL (test code = NEGATIVE NEGATIVE URINE: NEGATIVE = < HCGQUAL) 20 mIU/ML; POSI TIVE= >/= 20 mIU/ML S MICHELA: NEGATIVE = < 10 mIU/ML; POSITIV E= >/= 10 mIU/ML SOURCE (test code = URINE SOURCE) HCG INTERNAL POSITIVE PASS PASS CNTRL (test code = HCGIPC) HCG LOT # (test code = [id number] UHCGLOT) HCG EXPIRATION DATE 03-16-21 (test code = UHCGEXP) Strep screen [id number] 07:37:17 Test Item Value Reference Range Interpretation Comments Strep screen No beta hemolytic Specimen culture Streptococci InformationSpec imen isolate (test isolated Source: Throat Specimen code = 2246) Site: Not other [place]quin specified [place] [facility] [id number] 08:05:34 Test Item Value Reference Range Interpretation Comments Urine culture Mixed kerrie Specimen isolate (test <=10-3 col/cc InformationSp ecimen code = 44130-0) Source: Urin eSpecimen Site: Clean cat [facility] MethodistGram [id number] 08:05:34 Test Item Value Reference Range Interpretation Comments Gram stain No WBC's or Specimen result (test organisms seen. InformationS pecimen code = 664-3) Source: UrineS pecimen Site: Marce novak ch [place] MethodistBasic metabolic [id number] 05:45:22 Test Item Value Reference Range Interpretation Comments Sodium (test code = 2951-2) 137 135- 150 mEq/L Potassium (test code = 2823-3) 3.1 3.5- 5.0 mEq/L L Chloride (test code = 2075-0) 105 98- 112 mEq/L CO2 (test code = 8-9) 19 mmol/L 24-31 L Anion gap (test code = 54193-0) 13@ANIO 7- 15 mEq/L BUN (test code = 3094-0) 4 mg/dL 7-18 L Creatinine (test code = 2160-0) 0.70 mg/dL 0.5-0.9 Glucose (test code = 2345-7) 98 mg/dL 65-100 Calcium (test code = 85643-5) 8.0 mg/dL 8.3-10.2 L Lab Interpretation (test code = Abnormal 34486-4) [place] MethodistEstimated [id number] 05:45:21 Test Item Value Reference Range Interpretation Comments Estimated GFR (test >=90 mL/min/1.73 m2 Alfonso crow Units code = 5488) InterpretationG 1 >=90 Normal or highG2 60-89 Mildly hcgbfzoyqE6g 45-59 Mildly to mode rately qujtdtwlrG4o 30-44 Moderately to severely decreasedG4 15-29 Severely decre asedG5 <15 Kidn ey failureThe eGFR was calculated abelardo killian the Chronic Kidney Disease Epidemiology Co llaboration (CKD-EPI) equat ion. Interpretation is based on recommendations of the National Kidney Foundation-Kidn ey Disease Outcomes Qualit y Initiative (NKF-KDOQI) pub lished in 2014. [place] MethodistCBC with platelet and oeyyhrhxxfkk6147-79-67 05:29:43 Test Item Value Reference Range Interpretation Comments WBC (test code = 63988-1) 8.9 4.2- 11.0 k/uL RBC (test code = 53088-8) 2.90 m/uL 4.04-5.86 L HGB (test code = 718-7) 9.4 g/dL 11.5-15.3 L HCT (test code = 4544-3) 28.7 % 34-45 L MCV (test code = 787-2) 99.0 fL 80-98 H MCH (test code = 785-6) 32.4 pg 27-34 MCHC (test code = 786-4) 32.8 g/dL 31.5-36.5 RDW - SD (test code = 11827-2) 45.3 fL 37-51 MPV (test code = 30038-3) 11.9 fL 7.4-10.4 H Platelet count (test code = 169 150- 400 k/uL 07675-9) Nucleated RBC (test code = 21822-9) 0.00 /100 WBC Neutrophils (test code = 59989-6) 76.6 % 36-66 H Lymphocytes (test code = 94685-5) 12.9 % 24-44 L Monocytes (test code = 09926-4) 9.0 % 0-6 H Eosinophils (test code = 51541-0) 0.3 % 0-6 Basophils (test code = 98947-3) 0.5 % 0-1.2 Immature granulocytes (test code = 0.7 % 0-1 40273-7) Lab Interpretation (test code = Abnormal 17423-7) Rivas Shar [id number] 05:02:14Hm Interface, Radiology Results - 04/27/2019 5:05 AM CSTEXAMINATION: US LIMITED LINICAL HISTORY: hx iugr pneumoniaTECHNIQUE: Grayscale and color Doppler analysis of the pelvis was performed via transabdominal approach.COMPARISON: None.IMPRESSION:Limited evaluation demonstrates asingle intrauterine in breech presentation. Estimated gestational age by LMP is 29 weeks 4 days which gives an MARGE of 07/09/2019. Estimated gestational age by ultrasound is 27 weeks 6 days. cardiac activity is identified with a rate of 169 bpm.The placenta is anterior grade 2 and thereis no evidence of placenta previa or abruption.Amniotic fluid volume is within normal limits given the gestational age (DAVID is 14.3 cm. Largest pocket measures 4.3 cm.)Cervical length is 5.3 cm.Estimated weight is 1197 g (+/- 179.51 g). (6.6 percentile by Hadlock calculations) Measurements:*BPD: 7.36 cm*HC: 26.57 cm*AC: 24.51 cm*FL: 5.03 cm Biometry Ratios:*CI: 80.10 *FL/AC: 20.50 *FL/BPD: 68.34 [id number] MethodistXR Chest 2 [id number] 02:57:34Hm Interface, Radiology Results 04/27/2019 3:00 AM CSTEXAMINATION: XR CHEST 2 VWCLINICAL HISTORY: Cough persistentCOMPARISON: NoneIMPRESSION:Mildly prominent bronchovascular markings maybe reflective of marginal pneumonia, atypical bacterial pneumonia, or perihilar vascular congestion.Cardiomediastinal silhouette is within normal limits of size.Otherwise no focal airspace consolidation is identified. No sizable pleural effusion. No pneumothorax identified.No acute osseous abnormalities are visualized.[id number] MethodistComprehensive metabolic [id number] 01:00:06 Test Item Value Reference Range Interpretation Comments Sodium (test code = 2951-2) 136 135- 150 mEq/L Potassium (test code = 2823-3) 3.5 3.5- 5.0 mEq/L Chloride (test code = 2075-0) 105 98- 112 mEq/L CO2 (test code = 8-9) 18 mmol/L 24-31 L Anion gap (test code = 77140-6) 13@ANIO 7- 15 mEq/L BUN (test code = 3094-0) 5 mg/dL 7-18 L Creatinine (test code = 2160-0) 0.70 mg/dL 0.5-0.9 Glucose (test code = 2345-7) 97 mg/dL 65-100 Calcium (test code = 73006-0) 8.5 mg/dL 8.3-10.2 Protein (test code = 2885-2) 6.0 g/dL 6.3-8.3 L Albumin (test code = 1751-7) 2.7 g/dL 3.5-5 L A/G ratio (test code = 1759-0) 0.8 0.7-3.8 Alkaline phosphatase (test code = 94 U/L 0-104 6768-6) AST (test code = 1920-8) 33 U/L 10-35 ALT (test code = 1742-6) 23 U/L 5-50 Total bilirubin (test code = <0.3 0.2-1.2 1974-) Lab Interpretation (test code = Abnormal 58990-8) Rob MarycruzistInfluenza antigen test, reflex negative to [id number] 00:45:39 Test Item Value Reference Interpretation Comments Range Influenza antigen Positive for A Specimen (test code = Influenza A InformationSpec imen 93616-5) antigen.Negati Source: Nares Specimen ve for Flu B Site: Left Lab Interpretation Abnormal (test code = 24565-4) Rob JoelmontyGroup A strep, rapid [id number] 00:44:52 Test Item Value Reference Interpretation Comments Range Group A Negative for Group Specimen strep, rapid A Streptococcus InformationS pecimen antigen antigen. Source: ThroatS pecimen result (test Site: Not other marroquin code = specified 5225106) Rob JoelmontyUrine drugs of abuse [id number] 00:36:42 Test Item Value Reference Interpretation Comments Range Amphetamine screen, Negative urine (test code = 3349-8) Barbiturate screen, Negative urine (test code = 3377-9) Benzodiazepine Negative screen, urine (test code = 3390-2) Cocaine screen, Negative urine (test code = 3397-7) Methadone Negative metabolite (EDDP), urine (test code = 47873-0) Opiates screen, Negative urine (test code = 3879-4) Oxycodone screen, Negative urine (test code = 16088-5) Phencyclidine Negative screen, urine (test code = 3936-2) Cannabinoid screen, Negative Drug scr een minimum urine (test code = concentra tion of 3427-2) detectabilityAm phetamines 1000 ng/mLBarbiturat es 200 ng/mLBe nzodiazepines 300 ng/mLCocaine 300 ng/mLMethadone 300 ng/mLOp iates 300 ng/mLOxycodone 300 ng/mLPh encyclidine 25 ng/mLCannabinoi ds 50 ng/mLTr icyclics 1000 ng/mLResults are from screen ing tests and should only be used for medical evaluat ion. Drug testing for leg al purposes requires defini tive (or confirmatory) t esting methods, which are available upon request. C ontact the laboratory if d efinitive testing is requ ired. Rob MethodistUrinalysis screen and microscopy, with reflex to culture 2019-04-27 00:29:02 Test Item Value Reference Range Interpretation Comments Specimen site (test code = Clean catch 4207147) Color, UA (test code = 5778-6) Yellow Appearance, UA (test code = Clear 5767-9) Specific gravity, UA (test code = 1.018 1.001-1.035 5811-5) pH, UA (test code = 5803-2) 6.0 5.0-8.5 Protein, UA (test code = 53754-0) Negative Negative Glucose, UA (test code = 27969-7) Negative Negative Ketones, UA (test code = 2514-8) 1+ Negative A Bilirubin, UA (test code = Negative Negative 5770-3) Blood, UA (test code = 5794-3) Negative Negative Nitrite, UA (test code = 5802-4) Negative Negative Urobilinogen, UA (test code = Negative <2.0 36118-2) Leukocyte esterase, UA (test code Trace Negative A = 5799-2) Epithelial cells, UA (test code = Many /HPF 5787-7) Round epithelial cells, UA (test Moderate 0- 1 /HPF code = 61914-5) WBC, UA (test code = 5821-4) 4 0- 5 /HPF RBC, UA (test code = 65070-6) 1 0- 5 /HPF Bacteria, UA (test code = Trace None seen 65155-6) Yeast, UA (test code = 94778-5) None seen Yeast with pseudohyphae, UA (test None seen code = 61148-8) Lab Interpretation (test code = Abnormal 62784-2) Rob MethodistAutomated blood leukocyte count (number/volume)2019-03-08 10:20:00 Test Item Value Reference Range Interpretation Comments White Blood Count (test code = 6690-2) 13.2 [facility] automated count (number/volume) 2019-03-08 10:20:00 Test Item Value Reference Range Interpretation Comments Red Blood Count (test code = 789-8) 3.77 [facility] hemoglobin measurement (mass/volume)2019-03-08 10:20:00 Test Item Value Reference Range Interpretation Comments Hemoglobin (test code = 718-7) 11.9 [facility] ElizabethAutomated blood hematocrit (volume fraction)2019-03-08 10:20:00 Test Item Value Reference Range Interpretation Comments Hematocrit (test code = 4544-3) 36.8 [facility] ElizabethAutomated erythrocyte mean corpuscular volume (MCV) [id number] 10:20:00 Test Item Value Reference Range Interpretation Comments Mean Corpuscular Volume (test code = 98 787-2) [facility] ElizabethAutom[facility] erythrocyte mean corpuscular hemoglobin (mass per erythrocyte)2019-03-08 10:20:00 Test Item Value Reference Range Interpretation Comments Mean Corpuscular Hemoglobin (test code 31.6 = 785-6) [facility] ElizabethAutom[facility] erythrocyte mean corpuscular hemoglobin concentration measurement (mass/[id number] 10:20:00 Test Item Value Reference Range Interpretation Comments Mean Corpuscular Hemoglobin Concent 32.3 (test code = 786-4) [facility] ElizabethAutom[facility] erythrocyte distribution width [id number] 10:20:00 Test Item Value Reference Range Interpretation Comments Red Cell Distribution Width (test code 12.4 = 788-0) [facility] ElizabethAutom[facility] blood platelet count (count/volume)2019-03-08 10:20:00 Test Item Value Reference Range Interpretation Comments Platelet Count (test code = 777-3) [address] [facility] ElizabethAutomated blood platelet mean volume measurement 2019-03-08 10:20:00 Test Item Value Reference Range Interpretation Comments Mean Platelet Volume (test code = 11.0 38717-1) [facility] ElizabethService comment [id number] 10:20:00 Test Item Value Reference Range Interpretation Comments Manual Differential (test code = ----- 8265-1) [facility] ElizabethManual blood segmented neutrophils/100 leukocytes 2019-03-08 10:20:00 Test Item Value Reference Range Interpretation Comments Neutrophils % (Manual) (test code = 86 769-0) [facility] ElizabethManual blood band neutrophils form/100 leukocytes 2019-03-08 10:20:00 Test Item Value Reference Range Interpretation Comments Band Neutrophils % (Manual) (test code 1 = 764-1) [facility] ElizabethManual blood lymphocytes/100 mzehriqhut3264-29-62 10:20:00 Test Item Value Reference Range Interpretation Comments Lymphocytes % (Manual) (test code = 8 737-7) [facility] ElizabethManual blood monocytes/100 wqbsenhwyb2840-14-96 10:20:00 Test Item Value Reference Range Interpretation Comments Monocytes % (Manual) (test code = 4 744-3) [facility] ElizabethManual blood eosinophil count as percentage of total iyogoxvvhx1200-42-63 10:20:00 Test Item Value Reference Range Interpretation Comments Eosinophils % (Manual) (test code = 1 714-6) [facility] ElizabethBlood platelet detection by light vikbdwqavm0887-13-91 10:20:00 Test Item Value Reference Range Interpretation Comments Platelet Estimate (test code = Adequate 9317-9) [facility] ElizabethBlood erythrocyte morphology finding identification 2019-03-08 10:20:00 Test Item Value Reference Range Interpretation Comments Red Blood Cell Morphology (test code = Normal 6742-1) [facility] ElizabethSerum or plasma sodium measurement (moles/volume) 2019-03-08 10:20:00 Test Item Value Reference Range Interpretation Comments Sodium Level (test code = 2951-2) [address] [facility] ElizabethSerum or plasma potassium measurement (moles/volume) 2019-03-08 10:20:00 Test Item Value Reference Range Interpretation Comments Potassium Level (test code = 2823-3) 4.4 [facility]Serum or plasma chloride measurement (moles/volume) 2019-03-08 10:20:00 Test Item Value Reference Range Interpretation Comments Chloride Level (test code = 2075-0) [address] [facility] ElizabethSerum or plasma carbon dioxide measurement (moles/volume)2019-03-08 10:20:00 Test Item Value Reference Range Interpretation Comments Carbon Dioxide Level (test code = 19 8-9) [facility]Serum or plasma anion gap 4 determination (moles/volume) 2019-03-08 10:20:00 Test Item Value Reference Range Interpretation Comments Anion Gap (test code = 1863-0) 18 [facility] ElizabethSerum or plasma urea nitrogen measurement (mass/volume) 2019-03-08 10:20:00 Test Item Value Reference Range Interpretation Comments Blood Urea Nitrogen (test code = 8 3094-0) [facility] ElizabethSerum or plasma creatinine measurement (mass/volume) 2019-03-08 10:20:00 Test Item Value Reference Range Interpretation Comments Creatinine (test code = 2160-0) 0.6 [facility] ElizabethGlomerular filtration rate (GFR) estimation/1.73 sq m using serum, plasma, or whole blood creatininemeasurement with MDRD equation 2019-03-08 10:20:00 Test Item Value Reference Range Interpretation Comments Estimat Glomerular Filtration Rate 121 (test code = 23907-7) [facility]Serum or plasma glucose measurement (mass/volume) 2019-03-08 10:20:00 Test Item Value Reference Range Interpretation Comments Glucose Level (test code = 2345-7) 77 [facility] ElizabethSerum or plasma calcium measurement (mass/volume) 2019-03-08 10:20:00 Test Item Value Reference Range Interpretation Comments Calcium Level (test code = 70836-5) 9.2 [facility]Serum or plasma total bilirubin measurement (mass/volume)2019-03-08 10:20:00 Test Item Value Reference Range Interpretation Comments Total Bilirubin (test code = 1975-2) < 0.[address] [facility] ElizabethSerum or plasma aspartate aminotransferase measurement (enzymatic activity/volume)2019-03-08 10:20:00 Test Item Value Reference Range Interpretation Comments Aspartate Amino Transf (AST/SGOT) (test 15 code = 1920-8) [facility]Serum or plasma alanine aminotransferase measurement without P-5'-P (enzymatic activity/volume)2019-03-08 10:20:00 Test Item Value Reference Range Interpretation Comments Alanine Aminotransferase (ALT/SGPT) 12 (test code = 1744-2) [facility]Serum or plasma protein measurement (mass/volume) 2019-03-08 10:20:00 Test Item Value Reference Range Interpretation Comments Total Protein (test code = 2885-2) 6.5 [facility] ElizabethSerum or plasma albumin measurement (mass/volume) 2019-03-08 10:20:00 Test Item Value Reference Range Interpretation Comments Albumin (test code = 1751-7) 4.0 [facility] ElizabethSerum or plasma alkaline phosphatase measurement (enzymatic activity/volume)2019-03-08 10:20:00 Test Item Value Reference Range Interpretation Comments Alkaline Phosphatase (test code = 80 6768-6) [facility] ElizabethUrine methamphetamine [id number] 10:20:00 Test Item Value Reference Range Interpretation Comments Urine Methamphetamines Screen (test Negative code = 38554-0) [facility] ElizabethUrine propoxyphene screening [id number] 10:20:00 Test Item Value Reference Range Interpretation Comments Urine Propoxyphene Screen (test code Negative = 78624-1) [facility] ElizabethUrine amphetamines detection by screening method 2019-03-08 10:20:00 Test Item Value Reference Range Interpretation Comments Urine Amphetamines Screen (test code Negative = 49008-7) [facility] with reflex confirmation 2019-03-08 10:20:00 Test Item Value Reference Range Interpretation Comments Urine Buprenorphine (test code = Negative 3414-0) [facility] barbiturates detection by screening method 2019-03-08 10:20:00 Test Item Value Reference Range Interpretation Comments Urine Barbiturates Screen (test code Negative = 80837-6) [facility] benzodiazepines detection by screening method 2019-03-08 10:20:00 Test Item Value Reference Range Interpretation Comments Urine Benzodiazepines Screen (test Negative code = 13228-2) [facility] benzoylecgonine detection by screening method 2019-03-08 10:20:00 Test Item Value Reference Range Interpretation Comments Urine Cocaine Screen (test code = Negative 91323-0) [facility] methadone [id number] 10:20:00 Test Item Value Reference Range Interpretation Comments Urine Methadone, Qualitative (test Negative code = 85375-6) [facility] opiates screening [id number] 10:20:00 Test Item Value Reference Range Interpretation Comments Urine Opiates Screen (test code = Negative 85488-5) [facility] phencyclidine detection by screening method 2019-03-08 10:20:00 Test Item Value Reference Range Interpretation Comments Urine Phencyclidine Screen (test Negative code = 31582-2) [facility] cannabinoids detection by screening method 2019-03-08 10:20:00 Test Item Value Reference Range Interpretation Comments Urine Cannabinoids (test code = Negative 58391-3) [facility] tricyclic antidepressants detection 2019-03-08 10:20:00 Test Item Value Reference Range Interpretation Comments Ur Tricyclic Antidepressants Screen Negative (test code = 51852-7) [facility] oxycodone detection by screening [id number] 10:20:00 Test Item Value Reference Range Interpretation Comments Urine Oxycodone Screen (test code = Negative 74744-1) [facility] gravity of Urine by Automated test strip 2019-03-08 10:20:00 Test Item Value Reference Range Interpretation Comments Urine Specific [place] (test code = 1.018 86857-2) [facility] pH measurement by automated test [id number] 10:20:00 Test Item Value Reference Range Interpretation Comments Urine pH (test code = 92261-2) 8.[address] [facility] screen comment [id number] 10:20:00 Test Item Value Reference Range Interpretation Comments Urine Drug Screen Comment (test code See Note = 38990-5) [facility] blood leukocyte count (number/volume) 2019-03-08 10:20:00 Test Item Value Reference Range Interpretation Comments White Blood Count (test code = 13.2 10*3/uL 6690-2) [facility] erythrocytes automated count (number/volume) 2019-03-08 10:20:00 Test Item Value Reference Range Interpretation Comments Red Blood Count (test code = 3.77 10*6/uL 789-8) [facility] hemoglobin measurement (mass/volume)2019-03-08 10:20:00 Test Item Value Reference Range Interpretation Comments Hemoglobin (test code = 718-7) 11.9 g/dL [facility]Autom[facility] blood hematocrit (volume fraction)2019-03-08 10:20:00 Test Item Value Reference Range Interpretation Comments Hematocrit (test code = 4544-3) 36.8 % [facility]Autom[facility] erythrocyte mean corpuscular volume (MCV) [id number] 10:20:00 Test Item Value Reference Range Interpretation Comments Mean Corpuscular Volume (test code = 98 fL 787-2) [facility] erythrocyte mean corpuscular hemoglobin (mass per erythrocyte)2019-03-08 10:20:00 Test Item Value Reference Range Interpretation Comments Mean Corpuscular Hemoglobin (test 31.6 pg code = 785-6) [facility]Autom[facility] erythrocyte mean corpuscular hemoglobin concentration measurement (mass/[id number] 10:20:00 Test Item Value Reference Range Interpretation Comments Mean Corpuscular Hemoglobin Concent 32.3 g/dL (test code = 786-4) [facility] erythrocyte distribution width [id number] 10:20:00 Test Item Value Reference Range Interpretation Comments Red Cell Distribution Width (test code 12.4 % = 788-0) [facility]Autom[facility] blood platelet count (count/volume)2019-03-08 10:20:00 Test Item Value Reference Range Interpretation Comments Platelet Count (test code = 227 10*3/uL 777-3) [facility]Autom[facility] blood platelet mean volume measurement 2019-03-08 10:20:00 Test Item Value Reference Range Interpretation Comments Mean Platelet Volume (test code = 11.0 77148-1) [facility] comment [id number] 10:20:00 Test Item Value Reference Range Interpretation Comments Manual Differential (test code = ----- 8265-1) [facility] ElizabethManual blood segmented neutrophils/100 leukocytes 2019-03-08 10:20:00 Test Item Value Reference Range Interpretation Comments Neutrophils % (Manual) (test code = 86 % 769-0) [facility]Man[facility] blood band neutrophils form/100 leukocytes 2019-03-08 10:20:00 Test Item Value Reference Range Interpretation Comments Band Neutrophils % (Manual) (test code 1 % = 764-1) [facility]Manual blood lymphocytes/100 [id number] 10:20:00 Test Item Value Reference Range Interpretation Comments Lymphocytes % (Manual) (test code = 8 % 737-7) [facility] blood monocytes/100 [id number] 10:20:00 Test Item Value Reference Range Interpretation Comments Monocytes % (Manual) (test code = 4 % 744-3) [facility]Man[facility] blood eosinophil count as percentage of total [id number] 10:20:00 Test Item Value Reference Range Interpretation Comments Eosinophils % (Manual) (test code = 1 % 714-6) [facility] ElizabethBlood platelet detection by light [id number] 10:20:00 Test Item Value Reference Range Interpretation Comments Platelet Estimate (test code = Adequate 9317-9) [facility] ElizabethBlood erythrocyte morphology finding identification 2019-03-08 10:20:00 Test Item Value Reference Range Interpretation Comments Red Blood Cell Morphology (test code = Normal 6742-1) [facility] ElizabethSerum or plasma sodium measurement (moles/volume) 2019-03-08 10:20:00 Test Item Value Reference Range Interpretation Comments Sodium Level (test code = 2951-2) 137 mmol/L [facility]Ser[facility] or plasma potassium measurement (moles/volume) 2019-03-08 10:20:00 Test Item Value Reference Range Interpretation Comments Potassium Level (test code = 4.4 mmol/L 2823-3) [facility] or plasma chloride measurement (moles/volume) 2019-03-08 10:20:00 Test Item Value Reference Range Interpretation Comments Chloride Level (test code = 104 mmol/L 2074-0) [facility] - [facility] ElizabethSerum or plasma carbon dioxide measurement (moles/volume)2019-03-08 10:20:00 Test Item Value Reference Range Interpretation Comments Carbon Dioxide Level (test code = 19 mmol/L 2027-) [facility] ElizabethSerum or plasma anion gap 4 determination (moles/volume) 2019-03-08 10:20:00 Test Item Value Reference Range Interpretation Comments Anion Gap (test code = 1863-0) 18 [facility] ElizabethSerum or plasma urea nitrogen measurement (mass/volume) 2019-03-08 10:20:00 Test Item Value Reference Range Interpretation Comments Blood Urea Nitrogen (test code = 8 mg/dL 3094-0) [facility] - [facility] ElizabethSerum or plasma creatinine measurement (mass/volume) 2019-03-08 10:20:00 Test Item Value Reference Range Interpretation Comments Creatinine (test code = 2160-0) 0.6 mg/dL [facility]Glomer[facility] (GFR) estimation/1.73 sq m using serum, plasma, or whole blood creatininemeasurement with MDRD equation 2019-03-08 10:20:00 Test Item Value Reference Range Interpretation Comments Estimat Glomerular Filtration Rate 121 (test code = 96128-4) [facility]Serum or plasma glucose measurement (mass/volume) 2019-03-08 10:20:00 Test Item Value Reference Range Interpretation Comments Glucose Level (test code = 2345-7) 77 mg/dL [facility] - [facility] ElizabethSerum or plasma calcium measurement (mass/volume) 2019-03-08 10:20:00 Test Item Value Reference Range Interpretation Comments Calcium Level (test code = 74890-6) 9.2 mg/dL [facility] - [facility] ElizabethSerum or plasma total bilirubin measurement (mass/volume)2019-03-08 10:20:00 Test Item Value Reference Range Interpretation Comments Total Bilirubin (test code = < 0.2 mg/dL 1974-) [facility] - [facility] ElizabethSerum or plasma aspartate aminotransferase measurement (enzymatic activity/volume)2019-03-08 10:20:00 Test Item Value Reference Range Interpretation Comments Aspartate Amino Transf (AST/SGOT) 15 U/L (test code = 1920-8) [facility] ElizabethSerum or plasma alanine aminotransferase measurement without P-5'-P (enzymatic activity/volume)2019-03-08 10:20:00 Test Item Value Reference Range Interpretation Comments Alanine Aminotransferase (ALT/SGPT) 12 U/L (test code = 1744-2) [facility] ElizabethSerum or plasma protein measurement (mass/volume) 2019-03-08 10:20:00 Test Item Value Reference Range Interpretation Comments Total Protein (test code = 2885-2) 6.5 g/dL [facility] ElizabethSerum or plasma albumin measurement (mass/volume) 2019-03-08 10:20:00 Test Item Value Reference Range Interpretation Comments Albumin (test code = 1751-7) 4.0 g/dL [facility] ElizabethSerum or plasma alkaline phosphatase measurement (enzymatic activity/volume)2019-03-08 10:20:00 Test Item Value Reference Range Interpretation Comments Alkaline Phosphatase (test code = 80 U/L 6768-6) [facility] ElizabethUrine methamphetamine [id number] 10:20:00 Test Item Value Reference Range Interpretation Comments Urine Methamphetamines Screen Negative ng/mL (test code = 25589-0) [facility] propoxyphene screening [id number] 10:20:00 Test Item Value Reference Range Interpretation Comments Urine Propoxyphene Screen Negative ng/mL (test code = 31872-8) [facility] ElizabethUrine amphetamines detection by screening method 2019-03-08 10:20:00 Test Item Value Reference Range Interpretation Comments Urine Amphetamines Screen Negative ng/mL (test code = 94092-7) [facility] - . ElizabethUrine buprenorphine screen with reflex confirmation 2019-03-08 10:20:00 Test Item Value Reference Range Interpretation Comments Urine Buprenorphine (test code Negative ng/mL = 3414-0) [facility] ElizabethUrine barbiturates detection by screening method 2019-03-08 10:20:00 Test Item Value Reference Range Interpretation Comments Urine Barbiturates Screen Negative ng/mL (test code = 59941-5) [facility] benzodiazepines detection by screening method 2019-03-08 10:20:00 Test Item Value Reference Range Interpretation Comments Urine Benzodiazepines Screen Negative ng/mL (test code = 35050-8) [facility] benzoylecgonine detection by screening method 2019-03-08 10:20:00 Test Item Value Reference Range Interpretation Comments Urine Cocaine Screen (test Negative ng/mL code = 28452-2) [facility] methadone [id number] 10:20:00 Test Item Value Reference Range Interpretation Comments Urine Methadone, Qualitative Negative ng/mL (test code = 41881-5) [facility] ElizabethUrine opiates screening [id number] 10:20:00 Test Item Value Reference Range Interpretation Comments Urine Opiates Screen (test Negative ng/mL code = 30598-8) [facility]Urine phencyclidine detection by screening method 2019-03-08 10:20:00 Test Item Value Reference Range Interpretation Comments Urine Phencyclidine Screen Negative ng/mL (test code = 59142-5) [facility] ElizabethUrine cannabinoids detection by screening method 2019-03-08 10:20:00 Test Item Value Reference Range Interpretation Comments Urine Cannabinoids (test code Negative ng/mL = 52426-3) [facility] ElizabethScreening urine tricyclic antidepressants detection 2019-03-08 10:20:00 Test Item Value Reference Range Interpretation Comments Ur Tricyclic Antidepressants Negative ng/mL Screen (test code = 05466-0) [facility] ElizabethUrine oxycodone detection by screening [id number] 10:20:00 Test Item Value Reference Range Interpretation Comments Urine Oxycodone Screen (test Negative ng/mL code = 38614-9) [facility] ElizabethSpecific gravity of Urine by Automated test strip 2019-03-08 10:20:00 Test Item Value Reference Range Interpretation Comments Urine Specific [place] (test code = 1.018 00174-8) [facility] ElizabethUrine pH measurement by automated test [id number] 10:20:00 Test Item Value Reference Range Interpretation Comments Urine pH (test code = 16118-4) 8.0 [facility] drug screen comment [id number] 10:20:00 Test Item Value Reference Range Interpretation Comments Urine Drug Screen Comment (test code See Note = 62220-0) [facility] ElizabethUrinalysis specimen collection [id number] 09:58:00 Test Item Value Reference Range Interpretation Comments Urine Source (test code = 93034-4) URINE [facility] of Urine by [id number] 09:58:00 Test Item Value Reference Range Interpretation Comments Urine Color (test code = 69768-9) Yellow [facility] clarity [id number] 09:58:00 Test Item Value Reference Range Interpretation Comments Urine Appearance (test code = 45806-5) Turbid [facility] pH measurement by automated test [id number] 09:58:00 Test Item Value Reference Range Interpretation Comments Urine pH (test code = 61658-6) 8.0 [facility]Specific gravity of Urine by Automated test strip 2019-03-08 09:58:00 Test Item Value Reference Range Interpretation Comments Urine Specific [place] (test code = 1.019 05152-7) [facility] protein measurement by automated test strip (mass/volume)2019-03-08 09:58:00 Test Item Value Reference Range Interpretation Comments Urine Protein (test code = 85649-8) 10 [facility] glucose measurement by automated test strip (mass/volume)2019-03-08 09:58:00 Test Item Value Reference Range Interpretation Comments Urine Glucose (UA) (test code = Negative 88266-6) [facility] ketones measurement by automated test strip (mass/volume)2019-03-08 09:58:00 Test Item Value Reference Range Interpretation Comments Urine Ketones (test code = 12766-8) Negative [facility] erythrocytes count by automated test strip (number/volume)2019-03-08 09:58:00 Test Item Value Reference Range Interpretation Comments Urine Occult Blood (test code = Negative 92005-7) [facility] nitrite detection by automated test strip 2019-03-08 09:58:00 Test Item Value Reference Range Interpretation Comments Urine Nitrite (test code = 56906-6) Negative [facility] total bilirubin measurement by automated test strip (mass/volume)2019-03-08 09:58:00 Test Item Value Reference Range Interpretation Comments Urine Bilirubin (test code = Negative 87909-3) [facility] urobilinogen measurement by automated test strip (mass/volume)2019-03-08 09:58:00 Test Item Value Reference Range Interpretation Comments Urine Urobilinogen (test code = Negative 96765-9) [facility] leukocytes count by automated test strip (number/volume)2019-03-08 09:58:00 Test Item Value Reference Range Interpretation Comments Urine Leukocyte Esterase (test code Negative = 66304-9) [facility] ElizabethMicroscopic examination of [id number] 09:58:00 Test Item Value Reference Range Interpretation Comments Microscopic Urinalysis (T) (test code = ----- 90899-1) [facility] sediment erythrocyte count by microscopy (number/high power field)2019-03-08 09:58:00 Test Item Value Reference Range Interpretation Comments Urine RBC (test code = 91924-0) 0-2 [facility] sediment leukocyte count by microscopy (number/high power field)2019-03-08 09:58:00 Test Item Value Reference Range Interpretation Comments Urine WBC (test code = 5821-4) 0-5 [facility] sediment epithelial cell count by microscopy (number/high power field)2019-03-08 09:58:00 Test Item Value Reference Range Interpretation Comments Urine Epithelial Cells (test code = Few 5787-7) [facility] sediment crystal count by microscopy (number/high power field)2019-03-08 09:58:00 Test Item Value Reference Range Interpretation Comments Urine Crystals (test code = None Seen 05580-8) [facility] sediment bacteria count by microscopy (number/high power field)2019-03-08 09:58:00 Test Item Value Reference Range Interpretation Comments Urine Bacteria (test code = 5769-5) Many [facility] sediment casts count by microscopy (number/low power field)2019-03-08 09:58:00 Test Item Value Reference Range Interpretation Comments Urine Casts (test code = 9842-6) Present [facility] sediment hyaline cast count by microscopy (number/low power field)2019-03-08 09:58:00 Test Item Value Reference Range Interpretation Comments Urine Hyaline Casts (test code = 2-5 5796-8) [facility] ElizabethYeast detection in urine sediment by light microscopy 2019-03-08 09:58:00 Test Item Value Reference Range Interpretation Comments Urine Yeast (test code = 03996-4) None Seen [facility] comment 09:58:00 Test Item Value Reference Range Interpretation Comments Urinalysis Comment (test code = 8262-8) * [facility] comment 09:58:00 Test Item Value Reference Range Interpretation Comments Urine Culture Indicated (test code To follow = 8264-4) [facility]Urinalysis specimen collection [id number] 09:58:00 Test Item Value Reference Range Interpretation Comments Urine Source (test code = 69204-5) URINE [facility]Color of Urine by [id number] 09:58:00 Test Item Value Reference Range Interpretation Comments Urine Color (test code = 78135-2) Yellow [facility] clarity [id number] 09:58:00 Test Item Value Reference Range Interpretation Comments Urine Appearance (test code = 75248-9) Turbid [facility] pH measurement by automated test [id number] 09:58:00 Test Item Value Reference Range Interpretation Comments Urine pH (test code = 51319-0) 8.0 [facility]Specific gravity of Urine by Automated test strip 2019-03-08 09:58:00 Test Item Value Reference Range Interpretation Comments Urine Specific [place] (test code = 1.019 51767-6) [facility] protein measurement by automated test strip (mass/volume)2019-03-08 09:58:00 Test Item Value Reference Range Interpretation Comments Urine Protein (test code = 87182-8) 10 mg/dL [facility] ElizabethUrine glucose measurement by automated test strip (mass/volume)2019-03-08 09:58:00 Test Item Value Reference Range Interpretation Comments Urine Glucose (UA) (test code Negative mg/dL = 21240-0) [facility] ElizabethUrine ketones measurement by automated test strip (mass/volume)2019-03-08 09:58:00 Test Item Value Reference Range Interpretation Comments Urine Ketones (test code = Negative mg/dL 52707-5) [facility] ElizabethUrine erythrocytes count by automated test strip (number/volume)2019-03-08 09:58:00 Test Item Value Reference Range Interpretation Comments Urine Occult Blood (test code = Negative 60415-4) [facility] ElizabethUrine nitrite detection by automated test strip 2019-03-08 09:58:00 Test Item Value Reference Range Interpretation Comments Urine Nitrite (test code = 76424-8) Negative [facility] ElizabeUrine total bilirubin measurement by automated test strip (mass/volume)2019-03-08 09:58:00 Test Item Value Reference Range Interpretation Comments Urine Bilirubin (test code = Negative mg/dL 27883-9) [facility] ElizabethUrine urobilinogen measurement by automated test strip (mass/volume)2019-03-08 09:58:00 Test Item Value Reference Range Interpretation Comments Urine Urobilinogen (test code Negative mg/dL = 43427-0) [facility] ElizabethUrine leukocytes count by automated test strip (number/volume)2019-03-08 09:58:00 Test Item Value Reference Range Interpretation Comments Urine Leukocyte Esterase Negative {Kashif}/uL (test code = 37414-6) [facility] ElizabethMicroscopic examination of [id number] 09:58:00 Test Item Value Reference Range Interpretation Comments Microscopic Urinalysis (T) (test code = ----- 03097-8) [facility] by microscopy (number/high power field)2019-03-08 09:58:00 Test Item Value Reference Range Interpretation Comments Urine RBC (test code = 32137-7) 0-2 /[HPF] [facility] sediment leukocyte count by microscopy (number/high power field)2019-03-08 09:58:00 Test Item Value Reference Range Interpretation Comments Urine WBC (test code = 5821-4) 0-5 /[HPF] [facility] sediment epithelial cell count by microscopy (number/high power field)2019-03-08 09:58:00 Test Item Value Reference Range Interpretation Comments Urine Epithelial Cells (test code Few /[HPF] = 5787-7) [facility] sediment crystal count by microscopy (number/high power field)2019-03-08 09:58:00 Test Item Value Reference Range Interpretation Comments Urine Crystals (test code = None Seen /[HPF] 04210-7) [facility] sediment bacteria count by microscopy (number/high power field)2019-03-08 09:58:00 Test Item Value Reference Range Interpretation Comments Urine Bacteria (test code = Many /[HPF] 5769-5) [facility] sediment casts count by microscopy (number/low power field)2019-03-08 09:58:00 Test Item Value Reference Range Interpretation Comments Urine Casts (test code = Present /[LPF] 9842-6) [facility] sediment hyaline cast count by microscopy (number/low power field)2019-03-08 09:58:00 Test Item Value Reference Range Interpretation Comments Urine Hyaline Casts (test code = 2-5 /[LPF] 5796-8) [facility] ElizabethYeast detection in urine sediment by light microscopy 2019-03-08 09:58:00 Test Item Value Reference Range Interpretation Comments Urine Yeast (test code = None Seen /[HPF] 87751-4) [facility] comment 09:58:00 Test Item Value Reference Range Interpretation Comments Urinalysis Comment (test code = 8262-8) * [facility] comment 09:58:00 Test Item Value Reference Range Interpretation Comments Urine Culture Indicated (test code To follow = 8264-4) [facility] [id number] 16:12:00 Test Item Value Reference Range Interpretation Comments AMPHET (test code = NEGATIVE NEGATIVE This is an unconfirmed BAMP) screening. Res ult are to be used for medical purposes (treat ment) only. Not inte nded for non-medical pur poses. Cut-off concent ration for a positive result for each drug: Amphetamine - 1 ,000 ng/ml Barbitura te - 200 ng/ml Benzodiaz epine - 200 ng/ml Canna binoids - 50 ng/ml Coca ine - 300 ng/ml Opiat es - 300 ng/ml PCP - 25 ng/ml BARBITURATES (test NEGATIVE NEGATIVE code = BBAR) BENZO (test code = NEGATIVE NEGATIVE BBENZ) CANNABS (test code = NEGATIVE NEGATIVE BCANN) COCAINE (test code = NEGATIVE NEGATIVE BCOC) OPIATES (test code = NEGATIVE NEGATIVE BOPI) PCP (test code = NEGATIVE NEGATIVE BMTPCP) ISTAT CHEM [id number] 16:05:00 Test Item Value Reference Range Interpretation Comments ISTATNA (test code = 138 MMOL/L 137-145 ISTATNA) ISTATK (test code = 4.0 MMOL/L 3.6-5.0 ISTATK) ISTATCL (test code = 107 MMOL/L 98-107 ISTATCL) ISTIONCA (test code = 1.05 MMOL/L 1.12-1.32 L ISTIONCA) ISTCO2 (test code = 20 MMOL/L 22-30 L ISTCO2) ISTATGLU (test code = 95 MG/DL 65-110 ISTATGLU) ISTATBUN (test code = 6.0 MG/DL 7.0-20.0 L ISTATBUN) ISTCREA (test code = 0.4 MG/DL 0.7-1.5 L ISTCREA) ISTATHCT (test code = 36 %PCV 37.0-52.0 L ISTATHCT) ISTATHGB (test code = 12.2 G/DL 12.0-18.0 Notifi ed Nurse/MD of ISTATHGB) results outside of Reference Range s ISTANGAP (test code = 15 MMOL/L Notifi ed Nurse/MD of KHOI) results outside of Reference Range s BLOOD ALCOHOL (ETOH)2019-02-22 15:51:00 Test Item Value Reference Range Interpretation Comments ALCOHOL BLOOD LEVEL <10 MG/DL 0-10 Results are to be used (test code = ALC BLD) for al dical purposes (treatment) onl y. Not intended for no n medical purpose s. [id number] 15:42:00 Test Item Value Reference Range Interpretation Comments GLUCOSE (test code = URGLU) NEGATIVE MG/DL NEG-100 BILIRUBN (test code = URBILI) NEGATIVE NEGATIVE KETONE (test code = URKET) 40 MG/DL NEGATIVE BLOOD (test code = URBLD) NEGATIVE UR PH (test code = URPH) 6.0 5.0-7.5 PROTEIN (test code = URPRO) TRACE MG/DL NEGATIVE NITRITES (test code = URNIT) NEGATIVE NEGATIVE UROBILINGEN (test code = 0.2 EU/DL 0.2-1.0 URURO) LEUKOCYT (test code = URLEU) NEGATIVE NEGATIVE UA COLOR (test code = UA DARK YELLOW YELLOW COLOR) CLARITY (test code = CLARITY) CLEAR CLEAR SP GRAV (test code = URSPGRAV) 1.025 1.000-1.025 UAMICRO (test code = UAMICRO) NO B-HCG, [id number] 15:42:00 Test Item Value Reference Range Interpretation Comments HCG (test code = 41820 MIU/ML A value of less than or HCG) equal to </= 4. 83 mIU/ml is considered N EGATIVE. A value between 4 .84 mIU/ml and 24.99 mIU/m l is considered INDE TERMINATE and should be r epeated in 48 hours if nec essary. A value of 25.0 m IU/ml or greater is cons idered POSITIVE. Updat ed: 09/21/2009 US OB [id number] 15:26:00[address] [address]CNAOZJLCLI IMAGING REPORTPatient Name: JULIA LONG LDate of Service: 25-11-6531Agz: 33 Sex: F Order #: [id number] Room: ERSDOB: 1985 X-Ray Number: [id number] Record Number: [id number] Hospital Number: [id number] Physician: MALIA BROWEROrdering Physician: CAROL BROWER OB YGTPUVCNFK35/9/2019HISTORY: Nausea, vomiting, , cocaine useCOMPARISON: 02/14/2019A single, live, intrau terine is identified in cephalicpresentation. heart rate is 153 BPM. BPD is 4.3 cm, HC 16.8 cm, AC14.5 cm and FL 3.1 cm.Complete anatomical evaluation was not performed. movementswerenoted.The cervix measures 3 cm in length. The placenta is in an anterior locationwithout previa and maturity is grade 1. Amniotic fluid index is 11.8 cmwhich is within normal limits. Estimated weight is 309 g.Incidental note is made of 2 simple appearing cysts on the right ovarymeasuring 2 and 3.7 cm respectively.IMPRESSION:Single, live, intrauterine at 19 weeks 4 days gestation bytoday's exam. Estimated delivery date is 07/15/2019.Right ovarian cysts.Electronically Signed By: Poli Brand M.D., 02/22/2019 3:24 PMLegally authenticated by DERRICK PETERSON 2019-02-22 15:24:[id number] 14:47:00 Test Item Value Reference Range Interpretation Comments WBC (test code = 16.3 K/UL 3.5-10.9 H WBC) RBC (test code = 4.18 M/UL 4.0-5.0 RBC) HGB (test code = 13.3 G/DL 11.5-15.5 HGB) HCT (test code = 39.5 % 34-46 HCT) MCV (test code = 94.5 FL 80-98 MCV) MCH (test code = 31.8 PG 28-32 MCH) MCHC (test code = 33.7 G/DL 32.5-36.5 MCHC) RDW (test code = 12.8 % 11.5-14.5 RDW) PLT (test code = 259 K/UL 150-450 PLT) MPV (test code = 10.5 FL 7.4-10.4 H MPV) MANDIFF (test code = NO MANDIFF) SCAN (test code = NO SCAN) NEUT% (test code = 90.4 % 40-75 H NEUT%) LYMPH% (test code = 5.6 % 24-44 L LYMPH%) MONO% (test code = 3.2 % 0-13 MONO%) EOS% (test code = 0.2 % 0-4 EOS%) BASO % (test code = 0.1 % 0-2 BASO%) IG (test code = IG) 0 % 0-1 IG% (test code = 0.5 % 0-1 IG% = Metam yelocytes, IG%) Myelocytes, and Promyelocytes. (Immature neutr ophils not including " bands".) > 3% IG indic ates risk of sepsis NRBC% (test code = 0 /100 WBC NRBC%) ABS NEUT (test code 14.8 K/UL 1.2-7.2 H = NEUT) OB [id number] 13:22:00[address] [address]DAHLPXLKFM IMAGING REPORTPatient Name: Johnathan LONG of Service: [id number]: 33 Sex: F Order #: [id number] [facility] 1985 X-Ray Number: [id number] Record Number: [id number] Hospital Number: [id number] Physician: Praneeth KAMARAing Physician: GUERITA KAMARA OB LIMITED 02/14/2019 1:04 PMHistory: no movement concernsComparisons: None Available.Findings:There is a single living intrauterine at approximately 18 weeks1 days by current sonographic measurements.Amniotic fluid index: 13.23 cm.Presentation: CephalicPlacenta location: AnteriorPlacenta grade: 0Placenta previa: None.Cervical length: 3.5 cm. heart rate: 158 BPM.A surveywas not performed.IMPRESSION:Single living intrauterine at approximately 18 weeks 1 days bycurrent sonographic measurements.No definite abnormality is visualized.Electronically Signed By: Erwin Small M.D., 02/14/2019 1:20 PMLegally authenticated by KIM SUMNER 2019-02-14 13:20:24Neisseria gonorrhoeae DNA gqmth4934-06-30 12:45:00 Test Item Value Reference Range Interpretation Comments Neisseria gonorrhoeae DNA probe Negative Negative (test code = 63905-7) [facility] ohssi9133-51-56 12:45:00 Test Item Value Reference Range Interpretation Comments chlamydia DNA probe (test code = Negative Negative 36629-8) [facility] Nashurine rvadtvb0247-37-30 12:32:00 Test Item Value Reference Range Interpretation Comments urine culture (test code = 96275) [facility] uhakfxb8309-09-31 12:32:00 Test Item Value Reference Range Interpretation Comments hepatitis B surface antigen (test Negative Negative code = 79) [facility] gfffpemg7094-61-60 12:32:00 Test Item Value Reference Range Interpretation Comments Rh antibody (test code = 256) Negative Negative [facility], iwtgf5169-30-62 12:32:00 Test Item Value Reference Range Interpretation Comments hepatitis C antibody, serum (test code <0.1 0.0-0.9 = 2722) [facility] Nashblood glucose, 1 hour after 50 gm oral orwyeaw7640-61-67 12:32:00 Test Item Value Reference Range Interpretation Comments blood glucose, 1 hour after 50 gm 75 mg/dL 65-139 oral glucose (test code = 1039) [facility] NashHIV-CMIA (Chemiluminescent Microparticle Immuno Assay) 2019-02-09 12:32:00 Test Item Value Reference Range Interpretation Comments HIV-CMIA (Chemiluminescent Non Reactive Non Reactive Microparticle Immuno Assay) (test code = 307480) [facility]agin antibody, cfemt6334-99-44 12:32:00 Test Item Value Reference Range Interpretation Comments rapid plasma reagin antibody, Non Reactive Non Reactive serum (test code = 308) [facility] Nashrubella antibody, serum, [id number] 12:32:00 Test Item Value Reference Range Interpretation Comments rubella antibody, serum, IgG (test code 2.45 Immune >0.99 = 81) [facility] qamxunu4568-07-56 12:32:00 Test Item Value Reference Range Interpretation Comments Rh antigen (test code = 255) Negative [facility] NashABO blood kbaco3898-78-82 12:32:00 Test Item Value Reference Range Interpretation Comments ABO blood group (test code = 116) A [facility] Nashurinalysis, microscopic vqopabolqhz8829-98-22 12:32:00 Test Item Value Reference Range Interpretation Comments urinalysis, microscopic examination MICNIP (test code = 2566) [facility] Healthnitrate, toxaf4174-98-68 12:32:00 Test Item Value Reference Range Interpretation Comments nitrate, urine (test code = 5135) Negative Negative [facility] Nashurobilinogen, urine, semiquantitative (dipstick) 2019-02-09 12:32:00 Test Item Value Reference Range Interpretation Comments urobilinogen, urine, semiquantitative 0.2 0.2-1.0 (dipstick) (test code = 326) [facility]bilirubin, wjdon8725-32-11 12:32:00 Test Item Value Reference Range Interpretation Comments bilirubin, urine (test code = 319) Negative Negative [facility] Nashketones, urine, by test schpg7034-10-41 12:32:00 Test Item Value Reference Range Interpretation Comments ketones, urine, by test strip (test Negative Negative code = 322) [facility] Nashglucose, urine, lroqeiuazouiqwcb1959-84-58 12:32:00 Test Item Value Reference Range Interpretation Comments glucose, urine, semiquantitative Negative Negative (test code = 123) [facility] Nashprotein, urine, semiquantitative (dipstick)2019-02-09 12:32:00 Test Item Value Reference Range Interpretation Comments protein, urine, semiquantitative Negative Negative/Trace (dipstick) (test code = 1753-3) [facility] Nashleukocyte esterase, urine, by gahfotoj6066-86-16 12:32:00 Test Item Value Reference Range Interpretation Comments leukocyte esterase, urine, by Negative Negative dipstick (test code = 327) [facility] Healthappearance, irdwr1856-87-26 12:32:00 Test Item Value Reference Range Interpretation Comments appearance, urine (test code = 328) Clear Clear [facility] Healthurine kfabi8698-50-15 12:32:00 Test Item Value Reference Range Interpretation Comments urine color (test code = 2751) Yellow Yellow [facility] NashpH, urine, txeouanhmenilgxc4351-59-93 12:32:00 Test Item Value Reference Range Interpretation Comments pH, urine, semiquantitative (test code 6.5 5.0-7.5 = 324) [facility] body frafi7938-87-96 12:32:00 Test Item Value Reference Range Interpretation Comments specific gravity, body fluid (test code 1.024 1.005-1.030 = 3512) [facility] Nashimmature granulocytes, percentage of total cells, blood 2019-02-09 12:32:00 Test Item Value Reference Range Interpretation Comments immature granulocytes, percentage of 0 % total cells, blood (test code = 318482) [facility] Nashbasophil count, hzfxtglj5447-51-91 12:32:00 Test Item Value Reference Range Interpretation Comments basophil count, absolute (test 0.0 x10E3/uL 0.0-0.2 code = 11418) [facility] HealthEosinophil Absolute Dbehw6880-90-51 12:32:00 Test Item Value Reference Range Interpretation Comments Eosinophil Absolute Count (test 0.2 X10E3/UL 0.0-0.4 code = 755343) [facility] Nashmonocyte count, blood, txrskirgu9935-66-81 12:32:00 Test Item Value Reference Range Interpretation Comments monocyte count, blood, automated 0.8 X10E3/UL 0.1-0.9 (test code = 3076) [facility] Nashlymphocyte count, blood, psngdzzsx9383-81-79 12:32:00 Test Item Value Reference Range Interpretation Comments lymphocyte count, blood, 1.7 X10E3/UL 0.7-3.1 automated (test code = 3074) [facility] NashAbsolute Hixysicgqpw3703-17-77 12:32:00 Test Item Value Reference Range Interpretation Comments Absolute Neutrophils (test code 10.0 X10E3/UL 1.4-7.0 H = 32179) [facility] Nashbasophils as percent of blood hrafuegefn8248-12-36 12:32:00 Test Item Value Reference Range Interpretation Comments basophils as percent of blood 0 % leukocytes (test code = 2426) [facility] Healtheosinophils as percent of blood engzadbept9547-73-49 12:32:00 Test Item Value Reference Range Interpretation Comments eosinophils as percent of blood 2 % leukocytes (test code = 4170) [facility] Healthmonocytes as percent of blood qcorscmoml4359-09-36 12:32:00 Test Item Value Reference Range Interpretation Comments monocytes as percent of blood 7 % leukocytes (test code = 2421) [facility] Nashlymphocytes as percent of blood qaadecpkar8242-22-52 12:32:00 Test Item Value Reference Range Interpretation Comments lymphocytes as percent of blood 14 % leukocytes (test code = 317) [facility] Nashneutrophils as percent of blood sjuaorgouo6350-19-92 12:32:00 Test Item Value Reference Range Interpretation Comments neutrophils as percent of blood 77 % leukocytes (test code = 316) [facility] Nashplatelet yvhfi3958-03-69 12:32:00 Test Item Value Reference Range Interpretation Comments platelet count (test code = 66) 223 X10E3/UL 150-450 [facility] Nashred blood cell distribution qhfqa0809-97-55 12:32:00 Test Item Value Reference Range Interpretation Comments red blood cell distribution width 13.8 % 12.3-15.4 (test code = 1030) [facility] corpuscular hemoglobin concentration, BCS7800-77-82 12:32:00 Test Item Value Reference Range Interpretation Comments mean corpuscular hemoglobin 32.8 G/DL 31.5-35.7 concentration, RBC (test code = 1029) [facility] corpuscular hemoglobin, [id number] 12:32:00 Test Item Value Reference Range Interpretation Comments mean corpuscular hemoglobin, RBC 32.2 pg 26.6-33.0 (test code = 1031) [facility] corpuscular volume, [id number] 12:32:00 Test Item Value Reference Range Interpretation Comments mean corpuscular volume, RBC (test code 98 fL 79-97 H = 315) [facility] Nashhematocrit, hfzow9489-22-02 12:32:00 Test Item Value Reference Range Interpretation Comments hematocrit, blood (test code = 64) 37.2 % 34.0-46.6 [facility] Nashhemoglobin, dxtmn2181-22-39 12:32:00 Test Item Value Reference Range Interpretation Comments hemoglobin, blood (test code = 65) 12.2 g/dL 11.1-15.9 [facility] Nasherythrocyte (RBC) wloyi1658-98-04 12:32:00 Test Item Value Reference Range Interpretation Comments erythrocyte (RBC) count (test 3.79 X10E6/UL 3.77-5.28 code = 67) [facility] Nashleukocyte count, ghlah7636-06-77 12:32:00 Test Item Value Reference Range Interpretation Comments leukocyte count, blood (test 12.9 X10E3/UL 3.4-10.8 H code = 68) [facility] Nashdimeric inhibition A, multiples of vciuoh0366-78-86 12:32:00 Test Item Value Reference Range Interpretation Comments dimeric inhibition A, multiples of 2.56 (?) median (test code = 47426) [facility] Nashunconjugated eosxvyz9210-50-35 12:32:00 Test Item Value Reference Range Interpretation Comments unconjugated estriol (test code = 0.67 NG/ML 56355) [facility] chorionic gonadotropin, total, serum, multiples of tsclxf0467-91-33 12:32:00 Test Item Value Reference Range Interpretation Comments human chorionic gonadotropin, total, 1.55 (?) serum, multiples of median (test code = 4303) [facility] chorionic gonadotropin, total, mrtdh4233-47-58 12:32:00 Test Item Value Reference Range Interpretation Comments human chorionic gonadotropin, [address] m[iU]/mL total, serum (test code = 3386) [facility] Nashalpha-1 fetoprotein, maternal ,serum, multiples of median 2019-02-09 12:32:00 Test Item Value Reference Range Interpretation Comments alpha-1 fetoprotein, maternal 0.85 (?) ,serum, multiples of median (test code = 4302) [facility] Nashalpha-1 fetoprotein, xeuvs6648-24-85 12:32:00 Test Item Value Reference Range Interpretation Comments alpha-1 fetoprotein, serum (test 35.3 ng/mL code = 2754) [facility] Nashalpha-fetoprotein interpretation of ofuadxt2998-64-71 12:32:00 Test Item Value Reference Range Interpretation Comments alpha-fetoprotein *Screen Positive* A interpretation of results (test code = 8076) [facility] Nashalcohol, tnwiw8090-24-47 12:32:00 Test Item Value Reference Range Interpretation Comments alcohol, urine (test code = 2458) Negative % Cutoff=0.020 [facility] Nashphencyclidine screen, pnapl0926-85-57 12:32:00 Test Item Value Reference Range Interpretation Comments phencyclidine screen, urine (test Negative Cutoff=25 code = 2734) [facility] Healthopiates, urine, lnoeyegbcunjvihl9153-50-07 12:32:00 Test Item Value Reference Range Interpretation Comments opiates, urine, semiquantitative Negative Vilvhh=302 (test code = 3458) [facility] Healthcocaine, zmtdx7952-00-74 12:32:00 Test Item Value Reference Range Interpretation Comments cocaine, urine (test code = 3292) Negative Frqcps=885 [facility] Nashcannabinoid screen, zwbkl9963-56-31 12:32:00 Test Item Value Reference Range Interpretation Comments cannabinoid screen, urine (test code Negative Cutoff=50 = 2736) [facility] Nashbenzodiazepine screen, frapw3286-85-04 12:32:00 Test Item Value Reference Range Interpretation Comments benzodiazepine screen, urine (test Negative Ufwtgf=380 code = 2461) [facility] Nashbarbiturates screen, hmzey8261-24-47 12:32:00 Test Item Value Reference Range Interpretation Comments barbiturates screen, urine (test Negative Ctlivq=251 code = 2460) [facility] Nashamphetamine screen, xikpg6974-06-18 12:32:00 Test Item Value Reference Range Interpretation Comments amphetamine screen, urine (test code Negative Grchzn=5274 = 2459) [facility] NashHerpes Simplex Virus Vnlkhre3226-50-60 10:38:39 Test Item Value Reference Range Interpretation Comments Herpes Simplex Virus Genital (test code no = 4258) [facility] Nashpregnancy test, lsad8951-05-77 10:38:39 Test Item Value Reference Range Interpretation Comments test, type (test code = home 2106-3) [facility] Nashnitrite, urine, jyauexboqwaegssi9344-50-70 10:38:39 Test Item Value Reference Range Interpretation Comments nitrite, urine, semiquantitative (test Neg code = 323) [facility] Nashketones, urine, by test isdbh5782-37-74 10:38:39 Test Item Value Reference Range Interpretation Comments ketones, urine, by test strip (test Neg code = 322) [facility] Nashprotein, urine, semiquantitative (dipstick)2019-02-09 10:38:39 Test Item Value Reference Range Interpretation Comments protein, urine, semiquantitative Neg (dipstick) (test code = 1753-3) [facility] Nashbeta HCG, urine, vrbwhjrofuxyyskt0339-56-87 10:38:39 Test Item Value Reference Range Interpretation Comments beta HCG, urine, semiquantitative positive (test code = 2106-3) [facility] NashCystic Fibrosis DNA, Whole Wdvdk7964-02-53 00:00:00 Test Item Value Reference Range Interpretation Comments Cystic Fibrosis DNA, Whole Blood Negative N (test code = 66236) [facility] NashSYPHILIS (T. PALLIDUM) [id number] 18:26:00 Test Item Value Reference Range Interpretation Comments SCRN SYP (test NONREACTIVE NONREACTIVE Spyhilis IGG is a code = SCRN SYP) screening t est only. All REACTIVE result s leonor be confirmed by ad ditional testing. ER SCREEN FOR HIV 12:29:00 Test Item Value Reference Range Interpretation Comments HIV 1/2 AB (test NONREACTIVE NONREACTIVE This test i s used for code = SCRN HIV) SCREENING p urposes only. All reactive re sults are prelimenary and confirmation re sults will follow. HEPATITIS C ANTIBODY [id number] 09:10:00 Test Item Value Reference Range Interpretation Comments SCRN HCV (test code NEGATIVE NEGATIVE Hepatiti s C Antibody test = SCRN HCV) is for screenin g purposes only. All react toby will be confirmed by additional test ing. % HEMOGLOBIN A1C (GLYCATED)2018-08-10 08:29:00 Test Item Value Reference Range Interpretation Comments HEMOGLOBIN A1C (test 5.1 % 0-6 TH ERAPEUTIC TARGET code = GLYCO-) FOR THE TREAT MENT OF DIABETES M ELLITUS PATIENTS IS < 7 % HBA1C. [facility] [employer] DIABETES CARE 2002;25:S33-S49 LIPID [id number] 08:06:00 Test Item Value Reference Range Interpretation Comments CHOLEST (test code = 121 MG/DL 0-200 CHOLEST) TRIGLYCE (test code = 89 MG/DL 0-150 TRIGLYCE) HDL (test code = HDL) 52 MG/DL 35-90 NEGATI VE RISK FACTOR FOR HEART DISEA SE IF HDL >/=60 mg/dl MAJOR RISK FACTOR FOR HEART DISEASE IF HDL <40 mg/dL CALC LDL (test code = 51 MG/DL <100 CALC LDL) MOLECULAR LANQGDAXHS7635-47-60 09:27:00Negative *NA*(12/01/16 4:27 AM)[facility] EISVWCZPTB6897-20-06 09:27:00Negative *NA*(12/01/16 4:27 AM) [facility] AFWOTYKQLV3091-38-19 09:27:00Urine *NA*(12/01/16 4:27 AM)[facility]annCARDIAC FKAXDRN9330-13-95 14:25:93111Rkxkxoiu [place] UWYLLGZYGG7828-41-85 12:54:000.4[facility] SnzgjjrFSEGWGMIZA3875-90-32 12:54:002.0 [facility] PiiabowAPPJENIWDU1566-54-79 12:54:006.4[facility]annHEMATOLOGY 2016-11-26 12:54:000.7[facility] ClogeniYHSLEEZLOX9451-54-23 12:54:000.4[facility] UtobefeXJTPZZHAHR8933-12-50 12:54:0020.8[facility] ZbjbfwjEUGSLFAPKV9878-42-20 12:54:003.9[facility] TdtfgjsHADRRYXHAU6743-06-92 12:54:007.3[facility] [place] LSQZBKBZNA6565-53-34 12:54:0067.6[facility] GvhvytkSTDRWJARGJ4444-23-49 12:54:00 12.9[facility] EsfnjvhRTNVUFVRTC0645-52-62 12:54:0033.9[facility]annHEMATOLOGY 2016-11-26 12:54:00 Test Item Value Reference Range Interpretation Comments MCH (test code = MCH) 32.2 pg 27.0-31.0 [facility] LgaogqgZZAYHCXYIC5275-24-19 12:54:0094.9[facility]annHEMATOLOGY 2016-11-26 12:54:0032.9[facility] DwdmgpfROHCIYIJTS2322-36-30 12:54:15670Zttszoph FcpdjncBNSQKFRYGT7293-14-83 12:54:009.0[facility] MhljcmyHERSEOITPQ4588-97-98 12:54:0011.1[facility] WjcuuzpQCLQFZLGJH9692-39-38 12:54:003.46[facility] Sp IKCALUKJWL2158-55-40 12:54:009.5[facility]annCHEM UEPZW6976-73-05 07:44:11648 [facility]annCHEM HECYZ8630-51-59 07:44:008.6[facility]annCHEM PANEL 2016-11-26 07:44:35815Ufyeypku HermannCHEM OZFAF9368-55-63 07:44:003.8[facility]annCHEM HETRX9862-67-88 07:44:54453Wetkrzuq HermannCHEM NVSIC7465-30-16 07:44:0012.8[facility]annCHEM BPQNE5852-37-50 07:44:006[facility]annCHEM BSEYC6321-59-42 07:44:0023[facility]annCHEM WPIOY5604-17-46 07:44:0063 [facility]annCHEM JKKQY3144-47-33 07:44:000.55[facility]annELECTROLYTES 2016-11-25 11:09:0011.5[facility] YkmlkjhCRVNVVYLKMJI2039-82-19 11:09:05224 [facility] MpvsazoRCKWXXPHFBZV9267-15-91 11:09:59034Httwekby HermannELECTROLYTES 2016-11-25 11:09:0022[facility] TmtzrisBVRESKXWDIJA2935-54-57 11:09:008.3[facility] MsxgfdkWUWFULNKUPLP9959-97-10 11:09:003.5[facility] AzgmzfzTUHUKFFWACDU8710-96-01 11:09:78095Kjldbnky SsmvxczCLLOMUAUQWBF2083-67-76 11:09:007[facility] Sp DHKWSJWWGDYL3822-99-96 11:09:000.62[facility] XfjygryLWNJESTDAJDP9076-99-07 11:09:37897Ytbtxfvl OgtobfgGILJZLEAZK1960-52-89 11:09:0021.3[facility] [place] SYCBUSHZYN8484-26-50 11:09:000.7[facility] XgffztuCJZXXSGAGA5144-98-67 11:09:002.0 [facility] VjlgsvqDJXMHGEFJE4323-81-45 11:09:007.3[facility]annHEMATOLOGY 2016-11-25 11:09:000.8[facility] ZovwdjuNKUEGMPKOG0673-53-85 11:09:003.3[facility] EfzrceuEGBNPWCOUL6595-42-57 11:09:006.3[facility] ZdfdjsoUOTMTAQZLD2902-80-28 11:09:000.3[facility] LhmovgzOZSFDEYLSC1994-60-14 11:09:000.1[facility] Sp YNWEKSYYEL5366-03-25 11:09:0067.3[facility] WpmbgldBFTECMYBBN4525-34-07 11:09:00 94.7[facility] YxtcsapXKXHDUUCLH0822-97-43 11:09:0032.1[facility]annHEMATOLOGY 2016-11-25 11:09:0011.0[facility] PiljqqxGTZKUARVXN0905-71-72 11:09:008.8[facility] WebxwptVXBSXJKTJY5162-08-43 11:09:003.40[facility] HmmygdbSTRXVNCUBR0146-97-32 11:09:009.4[facility] QbutnruQFORJENWPM9078-90-25 11:09:00 Test Item Value Reference Range Interpretation Comments MCH (test code = MCH) 32.3 pg 27.0-31.0 [facility] PqcqrnkVYFOLXLVFQ2670-91-92 11:09:59115Jourcwlr HermannHEMATOLOGY 2016-11-25 11:09:0012.9[facility] IqraepyWALMWNYSRT5621-32-91 11:09:0034.2[facility]annCARDIAC WIRBSAQ9311-31-39 01:48:050900Ucoiinbk HermannCHEM PANEL 2016-11-24 11:09:002.2[facility] HermannCHEM OOUQP2219-01-08 11:09:000.7[facility] HermannCHEM ALCMA3025-14-75 11:09:003.2[facility]annCHEM XLIKN2881-82-93 11:09:0014.2[facility]annCHEM WYXJB1689-33-27 11:09:0015[facility] HermannCHEM WCSAJ9424-75-18 11:09:17810Cccqyqrk HermannCHEM HGAVR3989-48-27 11:09:009 [facility]annCHEM VKIKF4475-21-53 11:09:0060[facility]annCHEM PANEL 2016-11-24 11:09:65301Bqdtxlrn HermannCHEM DAETQ4496-16-96 11:09:000.59[facility]annCHEM JQIXQ4256-46-63 11:09:0093[facility]annCHEM TEEYG6903-85-08 11:09:000.3[facility]annCHEM TTOEH7475-41-51 11:09:002.2[facility]annCHEM ZQQCG0496-63-57 11:09:49725Krrikrll HermannCHEM CKEJJ6902-45-78 11:09:0060 [facility]annCHEM DVUBM1106-45-87 11:09:005.4[facility]annCHEM PANEL 2016-11-24 11:09:003.2[facility] HermannCHEM NFBSH8943-46-25 11:09:01307Zzqanylb HermannCHEM NIXMY7447-83-41 11:09:0019[facility] HermannCHEM DWLPF2212-17-71 11:09:008.1[facility] HermannCHEM GGDDR7014-81-69 11:09:002.2[facility] SEXPJVCKFA7212-91-19 11:09:000.1[facility] KcscjniRXMRNBXSNX7745-24-86 11:09:000.3 [facility] GgmifysWZGKLPHWBX1783-09-93 11:09:006.1[facility] HermannHEMATOLOGY 2016-11-24 11:09:0065.8[facility] AhfxygbZWXCJBZOAT9981-06-05 11:09:0024.0[facility] JcngbjvEREJAKDHXZ7644-64-00 11:09:002.0[facility] GasvarbOXVPJDJSLT2270-22-20 11:09:000.5[facility] MdgfzgcTHTUMDYEZC5332-93-05 11:09:005.6[facility] JCAFXYFAWF2265-89-53 11:09:000.7[facility] YedhfoiYELXMGBPMP7592-90-24 11:09:003.4 [facility] TxgfqpsGNILBGPGYE6249-66-10 11:09:009.4[facility] HermannHEMATOLOGY 2016-11-24 11:09:76508Ugtragso VeoxjtoXHUDJTAINA2205-53-07 11:09:0013.0[facility] WoppwjaKPWAYOMJQQ4471-78-26 11:09:0010.5[facility] XcllrbhKZKAYEAZXI0171-80-11 11:09:0031.4[facility] LjzhtgaOZFNMHGGOK8810-41-34 11:09:008.5[facility] GEJVJAHPPG7329-69-06 11:09:0033.6[facility] ZovdtthPSGFGFKUFF5901-76-44 11:09:00 Test Item Value Reference Range Interpretation Comments MCH (test code = MCH) 32.3 pg 27.0-31.0 [facility] WeqxjvoVAXOZNMBNH3797-40-47 11:09:0096.2[facility] HermannHEMATOLOGY 2016-11-24 11:09:003.26[facility] HermannCARDIAC TLAARAU4093-47-58 01:17:937692 [facility]annCARDIAC XMTPARW9691-03-37 01:17:026826Qqandxyy HermannBLOOD BANK PPQKMVH4273-90-55 02:37:00Negative (11/22/16 9:37 PM)[facility] HermannCHEM PANEL 2016-11-23 02:37:000.1[facility] HermannCHEM GKLRG1703-08-64 02:37:84870Arkdffzt HermannCHEM UVYFH2408-22-21 02:37:0073[facility] HermannCHEM FPNBP9563-05-30 02:37:59389Othgrpue HermannCHEM MXGYV8023-13-19 02:37:000.5[facility] HermannCHEM RSXAW6470-48-87 02:37:003.8[facility] HermannCHEM GCSOT7681-57-47 02:37:007.5 [facility]annCHEM IEWVS2812-26-80 02:37:000.4[facility] HermannCHEM PANEL 2016-11-23 02:37:003.7[facility] HermannCHEM PHGST4311-21-69 02:37:001.0[facility] HermannCHEM QMBVQ8616-13-73 02:37:001.0[facility] BnpkdcyEEBLPALFFW8212-08-18 02:37:000.1[facility] IomszliRXYPDRLGBV0304-44-90 02:37:00Normal (11/22/16 9:37 PM) [facility] CampusUsudvcjLIOEXGAXAC2569-53-10 02:37:00Normal (11/22/16 9:37 PM)[facility] CampusFwtieejJEVTJOYPCI4497-94-67 02:37:0015.7[facility] ApsajnaAYVTZACRLY2397-58-98 02:37:00 Test Item Value Reference Range Interpretation Comments Max Amplitude Rapid (test code = Max 76 mm 52-71 Amplitude Rapid) [facility] CampusUpvzhmiZRCYYVEVQD9996-67-45 02:37:00 Test Item Value Reference Range Interpretation Comments K-time Rapid (test code = K-time 0.8 min 0.6-2.3 Rapid) [facility] CampusHbatzuzLJIXEFZSRE6028-19-03 02:37:00 Test Item Value Reference Range Interpretation Comments Split Point Rapid (test code = Split 0.4 min Point Rapid) [facility] CampusQdpdrjsAAQCOTDDIS9112-14-05 02:37:00 Test Item Value Reference Range Interpretation Comments Angle Rapid (test code = Angle 80 degrees 64-80 Rapid) [facility] CampusMrjjdjbXIRPSCKIND3030-41-28 02:37:00 Test Item Value Reference Range Interpretation Comments R-time Rapid (test code = R-time 0.7 min 0.4-0.7 Rapid) [facility] CampusMmmwqbeLBWDXYSTZP6397-85-73 02:37:00 Test Item Value Reference Range Interpretation Comments ACT (TEG) Rapid (test code = ACT (TEG) 113 s 86-118 Rapid) [facility] CampusWxbofftKQGHWJOWMH2671-46-30 02:37:000.9[facility] HermannDRUG SCREEN 2016-11-23 02:11:00See Note (11/22/16 9:11 PM)[facility]annDRUG SCREEN 2016-11-23 02:11:00Negative *NA*(11/22/16 9:11 PM)[facility]annDRUG SCREEN 2016-11-23 02:11:00Negative *NA*(11/22/16 9:11 PM)[facility]annDRUG SCREEN 2016-11-23 02:11:00Negative *NA*(11/22/16 9:11 PM)[facility] HermannDRUG SCREEN 2016-11-23 02:11:00Negative *NA*(11/22/16 9:11 PM)[facility]annDRUG SCREEN 2016-11-23 02:11:00Positive *ABN*(11/22/16 9:11 PM)[facility]annDRUG SCREEN 2016-11-23 02:11:00Negative *NA*(11/22/16 9:11 PM)[facility]annDRUG SCREEN 2016-11-23 02:11:00Negative *NA*(11/22/16 9:11 PM)[facility]annURINE AND STOOL 2016-11-23 02:11:00Large *ABN*(11/22/16 9:11 PM)[facility]ann[facility] AND STOOL 2016-11-23 02:11:00Small *ABN*(11/22/16 9:11 PM)[facility] AND STOOL 2016-11-23 02:11:00Negative (11/22/16 9:11 PM)[facility]ann[facility] AND STOOL 2016-11-23 02:11:00Negative (11/22/16 9:11 PM)[facility]ann[facility] AND STOOL 2016-11-23 02:11:001.0[facility]annURINE AND [id number] 02:11:00 Test Item Value Reference Range Interpretation Comments UA Spec Grav (test code = UA Spec 1.025 1 Grav) [facility] AND JVCOY1706-03-64 02:11:00 Test Item Value Reference Range Interpretation Comments UA pH (test code = UA pH) 6.0 1 5.0-8.0 [facility] AND NZQGG8768-76-84 02:11:00Slight Cloudy (11/22/16 9:11 PM) [facility] AND HZVMZ8085-08-04 02:11:00Dark Yellow (11/22/16 9:11 PM) [facility] AND RMVKY7567-42-26 02:11:00Negative (11/22/16 9:11 PM) [facility] EGAVH8353-43-33 02:11:003-5 (11/22/16 9:11 PM)[facility]annURINE VNVX9089-02-42 02:11:00Negative (11/22/16 9:11 PM)[facility]
--- OUTSIDE RECORDS SUMMARY | 2019-12-08 18:10 | XMS REPORT | Continuity of Care Document ---
:1985 Author Organization [facility] Care Team Providers Name Role Phone MD CALIN CARNES Attending Physician PCP Primary Care Physician Unavailable Allergies, Adverse Reactions, Alerts Allergen Type Severity Reaction Last Verified Status Updated No Known Drug Allergy Unknown February No Active Allergies 2016 Medications Medication Status Dose Units Route Sig Qty Days Start End Instruct ions Date Date Promethazine Active 12.5 MG PO Every 6 05 March Hcl Hours as , (Phenergan) needed 2018 12.5 Mg TAB for Pain 2:51pm Problems No problem information available. Procedures Procedure Date Performed Status Minor level established patient September 28, 2019 complete d office visit Relevant Diagnostic Tests and/or Laboratory Data No known relevant diagnostic tests and/or laboratory data. Health Concerns Health Concerns may be documented in an alternate section. Advance Directives Advance Directive Response Recorded Date/Time Does the Patient have an No March 16 6:11pm Advance Directive? Encounters Encounter Location(s) Arrival/Admit Date Discharge/Depart Date Provider(s) Discharged [facility] September 28, 2019 October 15, 2019 ILANA CARNES [facility] 1:43pm 11:59pm Assessments No Assessments Information Available Functional Status Observation Response Date Recorded Onset Within the Last 7 Days No Problem Identified February 162018 6:11pm Goals Goals may be documented in an alternate section. Immunizations No Immunization Information Available Mental Status No Mental Status Information Available Medical Equipment No Medical Equipment Information available Insurance Providers Guarantor Julia Santiago Address [address] [facility] [address] Contact Info. Home Phone: Payer Policy Id Coverage Id Subscriber's Subscriber Effective Expi ration Name Id Date Date [facility] [id number] Julia Santiago [id number] November 14, [facility] [address] Social History Smoking Status Status Date of Observation Smokes tobacco daily (finding) March 16, 2019 6:26 pm Observation Status Observation Response Date of Response Hx Tobacco Use Y - 1.5 PPD March 16, 2019 6 :26pm Assigned Sex Female Vital Signs No vital signs result information available.
[2019-12-08 19:28] LABS: Urine Blood TRACE (NEG); Urine Glucose NEGATIVE (NEG); Urine Protein NEGATIVE (NEG); Urine Specific Gravity >1.030 (1.005-1.030); Urine pH 6.5 (5.0-7.0)
--- NOTE | 2019-12-08 19:30 | EDPHYS ---
Physician Documentation [facility] Name: Sarah Santiago Age: 34 yrs Sex: Female : 1985 Arrival Date: 12/08/2019 Time: 18:02 Bed 10 Private MD: ED Physician Bhavik Whitten HPI: 12/07 19:35 This 34 yrs old Female presents to ER via Ambulatory with complaints of snw Urinary Problem. 19:35 Onset: The symptoms/episode began/occurred suddenly, and became worse. Associated signs snw and symptoms: Pertinent positives: blood on monistat applicator. The patient has not experienced similar symptoms in the past. The patient has been recently seen by a physician: with different complaint(s), and apparently was diagnosed with PID, was given a prescription for antibiotics. Historical: - Allergies: 18:33 No Known Allergies; ss - Immunization history:: Adult Immunizations up to date. - Social history:: Smoking status: Patient denies any tobacco usage or history of. ROS: 19:35 Constitutional: Negative for fever, chills, and weight loss, Eyes: Negative for injury, snw pain, redness, and discharge, ENT: Negative for injury, pain, and discharge, Neck: Negative for injury, pain, and swelling, Cardiovascular: Negative for chest pain, palpitations, and edema, Respiratory: Negative for shortness of breath, cough, wheezing, and pleuritic chest pain, Abdomen/GI: Negative for abdominal pain, nausea, vomiting, diarrhea, and constipation, Back: Negative for injury and pain, MS/Extremity: Negative for injury and deformity, Skin: Negative for injury, rash, and discoloration, Neuro: Negative for headache, weakness, numbness, tingling, and seizure, Psych: Negative for depression, anxiety, suicide ideation, homicidal ideation, and hallucinations. 19:35 : Positive for blood on yeast infection applicator, pt states she is being tx for PID. Denies pelvic pain, fever, vomiting. Exam: 19:35 Constitutional: This is a well developed, well nourished patient who is awake, alert, snw and in no acute distress. Head/Face: Normocephalic, atraumatic. Eyes: Pupils equal round and reactive to light, extra-ocular motions intact. Lids and lashes normal. Conjunctiva and sclera are non-icteric and not injected. Cornea within normal limits. Periorbital areas with no swelling, redness, or edema. ENT: Nares patent. No nasal discharge, no septal abnormalities noted. Tympanic membranes are normal and external auditory canals are clear. Oropharynx with no redness, swelling, or masses, exudates, or evidence of obstruction, uvula midline. Mucous membranes moist. Neck: Trachea midline, no thyromegaly or masses palpated, and no cervical lymphadenopathy. Supple, full range of motion without nuchal rigidity, or vertebral point tenderness. No Meningismus. Chest/axilla: Normal chest wall appearance and motion. Nontender with no deformity. No lesions are appreciated. Cardiovascular: Regular rate and rhythm with a normal S1 and S2. No gallops, murmurs, or rubs. Normal PMI, no JVD. No pulse deficits. Respiratory: Lungs have equal breath sounds bilaterally, clear to auscultation and percussion. No rales, rhonchi or wheezes noted. No increased work of breathing, no retractions or nasal flaring. Abdomen/GI: Soft, non-tender, with normal bowel sounds. No distension or tympany. No guarding or rebound. No evidence of tenderness throughout. Back: No spinal tenderness. No costovertebral tenderness. Full range of motion. Skin: Warm, dry with normal turgor. Normal color with no rashes, no lesions, and no evidence of cellulitis. MS/ Extremity: Pulses equal, no cyanosis. Neurovascular intact. Full, normal range of motion. Neuro: Awake and alert, GCS 15, oriented to person, place, time, and situation. Cranial nerves II-XII grossly intact. Motor strength 5/5 in all extremities. Sensory grossly intact. Cerebellar exam normal. Normal gait. Psych: Awake, alert, with orientation to person, place and time. Behavior, mood, and affect are within normal limits. Vital Signs: 18:30 BP 112 / 74; Pulse 80; Resp 14; Temp 98.4(TE); Pulse Ox 98% on R/A; Weight 81.65 kg; ss Height 5 ft. 2 in. (157.48 cm); Pain 8/10; 18:30 Body Mass Index 32.92 (81.65 kg, 157.48 cm) MDM: 19:24 Patient medically screened. snw 19:37 Data reviewed: vital signs, nurses notes. Data interpreted: Pulse oximetry: on room air snw is 98 %. Interpretation: normal. Counseling: I had a detailed discussion with the patient and/or guardian regarding: the historical points, exam findings, and any diagnostic results supporting the discharge/admit diagnosis, lab results, the need for outpatient follow up, for definitive care, to return to the emergency department if symptoms worsen or persist or if there are any questions or concerns that arise at home. Special discussion: Based on the history and exam findings, there is no indication for further emergent testing or inpatient evaluation. I discussed with the patient/guardian the need to see the OB Gyne specialist for further evaluation of the symptoms. 12/07 18:24 Order name: Urine Microscopic Only; Complete Time: 19:38 snw 12/07 19:26 Order name: Urine Dipstick--Ancillary (enter results); Complete Time: 19:29 eb 12/07 18:24 Order name: Urine Test (obtain specimen); Complete Time: 19:24 snw 12/07 18:24 Order name: Urine Dipstick-Ancillary (obtain specimen); Complete Time: 19:24 snw 12/07 19:26 Order name: Urine --Ancillary (enter results); Complete Time: 19:29 eb 12/07 19:35 Order name: Urine Culture EDFL Administered Medications: No medications were administered Disposition: 12/08 07:22 Co-signature as Attending Physician, Bhavik Whitten MD I agree with the assessment and kdr plan of care. Disposition: 12/08/19 19:29 Discharged to Home. Impression: Person with feared health complaint in whom no diagnosis is made. - Condition is Stable. - Discharge Instructions: Pelvic Inflammatory Disease, How to Take a Sitz Bath, Vaginal Yeast Infection, Adult, Vaginitis, Pelvic Rest. - Medication Reconciliation Form, Thank You Letter, Antibiotic Education, Prescription Opioid Use form. - Follow up: Emergency Department; When: As needed; Reason: Worsening of condition. Follow up: Private Physician; When: 5 - 6 days; Reason: Recheck today's complaints, Continuance of care, Re-evaluation by your physician. - Notes: Continue current medications. Soft yogurt by mouth Signatures: Dispatcher [facility] Bhavik Whitten MD MD kdr Waters, Shelly, FNP-C [employer] Janett Soto, MARJ RN ss Lindsey Bishop RN RN ea Corrections: (The following items were deleted from the chart) 12/07 19:54 19:29 12/08/2019 19:29 Discharged to Home. Impression: Person with feared health ea complaint in whom no diagnosis is made. Condition is Stable. Forms are Medication Reconciliation Form, Thank You Letter, Antibiotic Education, Prescription Opioid Use. Follow up: Emergency Department; When: As needed; Reason: Worsening of condition. Follow up: Private Physician; When: 5 - 6 days; Reason: Recheck today's complaints, Continuance of care, Re-evaluation by your physician. snw
--- NOTE | 2019-12-08 19:30 | ER ---
Nurse's Notes [facility] Name: Sarah Santiago Age: 34 yrs Sex: Female : 1985 Arrival Date: 12/08/2019 Time: 18:02 Bed 10 Private MD: Diagnosis: Person with feared health complaint in whom no diagnosis is made Presentation: 12/07 18:30 Chief complaint: Patient states: "I was diagnosed with PID and I'm waiting for the STD ss panel to come back. They gave me antibiotics, but I'm here today because I thought I had a yeast infection, but when I pulled out the applicator there was blood on it. Coronavirus screen: Patient denies a cough. Patient denies shortness of breath or difficulty breathing. Patient denies measured and/or subjective temperature greater than 100.4F prior to today's visit. Patient denies travel on a cruise ship or to a country the [facility] currently lists as an affected area. Patient denies contact with known and/or suspected case of COVID-19. Proceed with normal triage. Ebola Screen: Patient denies exposure to infectious person. Patient denies travel to an Ebola-affected area in the 21 days before illness onset. Initial Sepsis Screen: Does the patient meet any 2 criteria? No. Patient's initial sepsis screen is negative. Does the patient have a suspected source of infection? Yes: Other: PID. Risk Assessment: Do you want to hurt yourself or someone else? Patient reports no desire to harm self or others. Onset of symptoms was November 2019. 18:30 Method Of Arrival: Ambulatory ss 18:30 Acuity: HENRI 4 ss Historical: - Allergies: 18:33 No Known Allergies; ss - Immunization history:: Adult Immunizations up to date. - Social history:: Smoking status: Patient denies any tobacco usage or history of. Screenin:40 Abuse screen: Denies threats or abuse. Nutritional screening: No deficits noted. ea Tuberculosis screening: No symptoms or risk factors identified. Fall Risk None identified. Assessment: 19:40 General: Appears in no apparent distress. Pain: Denies pain. Neuro: No deficits noted. ea Respiratory: No deficits noted. Derm: No deficits noted. Vital Signs: 18:30 BP 112 / 74; Pulse 80; Resp 14; Temp 98.4(TE); Pulse Ox 98% on R/A; Weight 81.65 kg; ss Height 5 ft. 2 in. (157.48 cm); Pain 8/10; 18:30 Body Mass Index 32.92 (81.65 kg, 157.48 cm) ED Course: 18:02 Patient arrived in ED. as 18:32 Triage completed. ss 18:33 Arm band placed on right wrist. ss 18:52 Neeta Simpson FNP-C is [facility]. snw 18:52 Bhavik Whitten MD is Attending Physician. snw 19:40 Patient has correct armband on for positive identification. ea 19:54 No provider procedures requiring assistance completed. Patient did not have IV access ea during this emergency room visit. Administered Medications: No medications were administered Outcome: 19:29 Discharge ordered by . snw 19:54 Patient left the ED. ea 19:54 Discharged to home ambulatory. ea 19:54 Condition: stable 19:54 Discharge instructions given to patient, Instructed on discharge instructions, follow up and referral plans. Demonstrated understanding of instructions, follow-up care. Signatures: Neeta Simpson FNP-C FNP-Brooklynn Nath Shelby, RN RN Lindsey Bishop RN RN ea
[2019-12-08 19:33] LABS: Urine Bacteria 20-50 /HPF (<20); Urine Culture Reflex Order REFLEXED
[2019-12-08 19:34] LABS: Urine Amorphous Sediment 3+ /HPF (NONE SEEN); Urine Mucus 2+ /HPF (NONE SEEN)
[2019-12-08 20:25] VITALS: BP 112/74; TEMP 98.4; O2SAT 98
== END 2019-12-08 19:54 | disposition home or self-care (01) ==
LOC: ER 18:00
DX: Z71.1 Person with feared health complaint in whom no diagnosis is made (principal)
CPT/HCPCS: 81003; 81015; 81025; 87086; 87088; 99281

== ENCOUNTER 2020-02-03 08:53 | Emergency (ER) | payer OTHER ==
--- OUTSIDE RECORDS SUMMARY | 2020-02-03 08:55 | XMS REPORT | Clinical Summary ---
:1985 Author Organization [employer] Address [address] [place] [address] Care Team Providers Name Role Phone Alaina Zavala MD Primary Care Provider Unavailable Allergies Active Allergy Reactions Severity Noted Date Comments Morphine Other (See Comments) Medium 01/02/2018 Severe vomiting Medications Medication Sig Dispensed Refills Start Date End Date Status ARIPiprazole Inject 1,064 0 Acti ve lauroxil mg into the (ARISTADA) 1,064 shoulder, mg/3.9 mL thigh, or suspension,extend buttocks. ed rel syring [id number] Take 1 tablet 0 02/09/2019 Acti ve carb,[id number] by mouth dupont (CITRANATAL 90 daily. DHA, [...] and Gynecology Micheline Albert MD 04/28/2019 after 02/02/2019 Immunizations Name Administration Dates Next Due Rho [...] Comments Blood Pressure 106/56 04/28/2019 9:08 AM SEBD TEACHER Pulse 95 04/28/2019 9:08 AM SEBD TEACHER Temperature 36.9 C (98.5 F) 04/28/2019 9:08 AM SEBD TEACHER Respiratory Rate 20 04/28/2019 9:08 AM SEBD TEACHER Oxygen Saturation 96% 04/28/2019 8:02 AM SEBD TEACHER Inhaled Oxygen Concentration - - Weight 83.9 kg (185 lb) 04/26/2019 11:15 PM SEBD TEACHER Height 157.5 cm (5' 2") 04/26/2019 11:15 PM SEBD TEACHER Body Mass Index 33.84 04/26/2019 11:15 PM SEBD TEACHER Plan of Treatment Health Maintenance Due Date Last Done Comments CERVICAL CANCER SCREENING 2004 INFLUENZA VACCINE 01/16/2020 03/13/2019, 05/17/2014 Procedures Procedure Name Priority Date/Time Associated Comments Diagnosis ESTIMATED GFR Routine 04/28/2019 4:48 Results fo r this AM SEBD TEACHER procedure are i n the results section. BASIC METABOLIC PANEL Routine 04/28/2019 4:48 Re sults for this AM SEBD TEACHER procedure are i n the results section. HC COMPLETE BLD COUNT Routine 04/28/2019 4:48 Re sults for this W/AUTO DIFF AM SEBD TEACHER procedure are i n the results section. US LIMITED STAT 04/27/2019 4:39 Res ults for this AM SEBD TEACHER procedure are i n the results section. XR CHEST 2 VW STAT 04/27/2019 2:51 Results fo r this AM SEBD TEACHER procedure are i n the results section. ESTIMATED GFR STAT 04/27/2019 12:28 Results fo r this AM SEBD TEACHER procedure are i n the results section. COMPREHENSIVE STAT 04/27/2019 12:28 Results fo r this METABOLIC PANEL AM SEBD TEACHER procedure ar e in the results section. HC COMPLETE BLD COUNT STAT 04/27/2019 12:28 Re sults for this W/AUTO DIFF AM SEBD TEACHER procedure are i n the results section. GRAM STAIN STAT 04/27/2019 12:24 Results for this AM SEBD TEACHER procedure are i n the results section. URINE CULTURE STAT 04/27/2019 12:24 Results fo r this AM SEBD TEACHER procedure are i n the results section. STREP SCREEN CULTURE Routine 04/26/2019 11:55 Res ults for this PM SEBD TEACHER procedure are i n the results section. GROUP A STREP, RAPID STAT 04/26/2019 11:55 Res ults for this ANTIGEN PM SEBD TEACHER procedure are i n the results section. INFLUENZA ANTIGEN STAT 04/26/2019 11:55 Result s for this TEST, REFLEX NEGATIVE PM SEBD TEACHER proced ure are in TO RPP the results section. URINE DRUGS OF ABUSE STAT 04/26/2019 11:54 Res ults for this SCREEN PM SEBD TEACHER procedure are i n the results section. URINALYSIS SCREEN AND STAT 04/26/2019 11:54 Re sults for this MICROSCOPY, WITH PM SEBD TEACHER procedure a re in REFLEX TO CULTURE the result s section. after 02/02/2019 Results Estimated GFR (04/28/2019 4:48 AM SEBD TEACHER)Only the most recent of2 resultswithin the time period is included. Pathologist [facility] Estimated GFR >=90 mL/min/1.73 [facility] Comment: m2 [facility] Catergory Units Interpretation G1 >=90 [...] DEPARTMENT OF PATHOLOGY AND [address] [place], [place] [address] GENOMIC MEDICINE [facility] [address] [place], [place] [address] CBC with platelet and differential (04/28/2019 4:48 AM SEBD TEACHER)Only the most recent of2 resultswithin the time period is included. WBC 8.9 4.2 - 11.0 k/uL [facility] RBC 2.90 (L) 4.04 - 5.86 [facility] m/uL [facility] HGB 9.4 (L) 11.5 - 15.3 [facility] g/dL [facility] HCT 28.7 (L) 34.0 - 45.0 % [facility] MCV 99.0 (H) 80.0 - 98.0 fL [facility] MCH 32.4 27.0 - 34.0 pg [facility] MCHC 32.8 31.5 - 36.5 [facility] g/dL [facility] RDW - SD 45.3 37.0 - 51.0 fL [facility] MPV 11.9 (H) 7.4 - 10.4 fL [facility] Platelet count 169 150 - 400 k/uL [facility] Nucleated RBC 0.00 /100 WBC [facility] Neutrophils 76.6 (H) 36.0 - 66.0 % [facility] Lymphocytes 12.9 (L) 24.0 - 44.0 % [facility] Monocytes 9.0 (H) 0.0 - 6.0 % [facility] Eosinophils 0.3 0.0 - 6.0 % [facility] Basophils 0.5 0.0 - 1.2 % [facility] Immature granulocytes 0.7 0.0 - 1.0 % [facility] Specimen Blood Performing Organization Address City/State/Zipcode Phone Number [facility] DEPARTMENT OF PATHOLOGY AND [address] [place], [place] [address] GENOMIC MEDICINE [facility] [address] [place], [place] [address] Basic metabolic panel (04/28/2019 4:48 AM SEBD TEACHER) Pathologist Sig nature Sodium 137 135 - 150 mEq/L [facility] Potassium 3.1 (L) 3.5 - 5.0 mEq/L [facility] Chloride 105 98 - 112 mEq/L [facility] CO2 19 (L) 24 - 31 mmol/L [facility] Anion gap 13@ANIO 7 - 15 mEq/L [facility] BUN 4 (L) 7 - 18 mg/dL [facility] Creatinine 0.70 0.50 - 0.90 mg/dL [facility] Glucose 98 65 - 100 mg/dL [facility] Calcium 8.0 (L) 8.3 - 10.2 mg/dL [facility] Specimen Plasma specimen Performing Organization Address City/State/Zipcode Phone Number [facility] DEPARTMENT OF PATHOLOGY AND [address] [place], [place] [address] GENOMIC MEDICINE [facility] [address] [place], [place] [address] [place] Limited (04/27/2019 4:39 AM SEBD TEACHER) Specimen Narrative Performed At EXAMINATION: [place] LIMITED [...] Ratios: *CI: 80.10 *FL/AC: 20.50 *FL/BPD: 68.34 [facility]-[id number] Procedure Note Hm Interface, Radiology Results Incoming - 04/27/2019 5:05 AM SEBD TEACHER EXAMINATION: US LIMITED CLINICAL HISTORY: hx iugr [...] Ratios: *CI: 80.10 *FL/AC: 20.50 *FL/BPD: 68.34 [id number] Performing Organization Address [facility] Phone Number [employer] [address] [place] [address] XR Chest 2 Vw (04/27/2019 2:51 AM SEBD TEACHER) Specimen Narrative Performed At EXAMINATION: XR CHEST [...] No acute osseous abnormalities are visua lized. [id number] Procedure Note Hm Interface, Radiology Results Incoming - 04/27/2019 3:00 AM SEBD TEACHER EXAMINATION: XR CHEST 2 VW CLINICAL HISTORY: Cough persistent COMPARISON: None IMPRESSION: Mildly prominent bronchovascular marking s may be reflective of marginal pneumonia, atypical bacterial pneumonia, or perihilar vascular congestion. Cardiomediastinal silhouette is within n ormal limits of size. Otherwise no focal airspace consolidatio n is identified. No sizable pleural effusion. No pneumothorax identified. No acute osseous abnormalities are visua lized. [facility]-[id number] Performing Organization Address [facility] Phone Number [employer] [address] [place] [address] Comprehensive metabolic panel (04/27/2019 12:28 AM SEBD TEACHER) Pathologist Sig nature Sodium 136 135 - 150 mEq/L [facility] Potassium 3.5 3.5 - 5.0 mEq/L [facility] Chloride 105 98 - 112 mEq/L [facility] CO2 18 (L) 24 - 31 mmol/L [facility] Anion gap 13@ANIO 7 - 15 mEq/L [facility] BUN 5 (L) 7 - 18 mg/dL [facility] Creatinine 0.70 0.50 - 0.90 [facility] mg/dL [facility] Glucose 97 65 - 100 mg/dL [facility] Calcium 8.5 8.3 - 10.2 mg/dL [facility] Protein 6.0 (L) 6.3 - 8.3 g/dL [facility] Albumin 2.7 (L) 3.5 - 5.0 g/dL [facility] A/G ratio 0.8 0.7 - 3.8 [facility] Alkaline phosphatase 94 0 - 104 U/L [facility] AST 33 10 - 35 U/L [facility] ALT 23 5 - 50 U/L [facility] Total bilirubin <0.3 0.2 - 1.2 mg/dL [facility] Specimen Plasma specimen Performing Organization Address City/State/Zipcode Phone Number [facility] DEPARTMENT OF PATHOLOGY AND [address] [place], [place] [address] [facility] [address] [place], [place] [address] Gram stain (04/27/2019 12:24 AM SEBD TEACHER) Gram stain result No WBC's or organisms seen. [facility] Comment: HOSPITAL Specimen Information Specimen Source: Urine Specimen Site: Clean catch Specimen Urine Performing Organization Address City/State/Zipcode Phone Number [facility] DEPARTMENT OF PATHOLOGY AND [address] [place], [place] [address] [facility] [address] [place] [address] Urine culture (04/27/2019 12:24 AM SEBD TEACHER) Urine culture Mixed kerrie <=10-3 col/cc [facility] IST isolate Comment: HOSPITAL Specimen Information Specimen Source: Urine Specimen Site: Clean catch Specimen Urine Performing Organization Address City/State/Zipcode Phone Number [facility] DEPARTMENT OF PATHOLOGY AND [address] [place], [place] [address] [facility] [address] [place] [address] Influenza antigen test, reflex negative to RPP (04/26/2019 11:55 PM SEBD TEACHER) Pathologist [facility] Influenza antigen Positive for Influenza A antigen. HO [facility] Negative for Flu B [facility] (A) Comment: Specimen Information Specimen Source: Nares Specimen Site: Left Specimen Nares - Left Performing Organization Address City/State/Zipcode Phone Number [facility] DEPARTMENT OF PATHOLOGY AND [address] [place], [place] [address] [facility] [address] [place], [place] [address] Group A strep, rapid antigen (04/26/2019 11:55 PM SEBD TEACHER) Pathologist [facility] Group A strep, Negative for Group A Streptococcus antigen. [facility] rapid antigen Comment: [facility] result Specimen Information Specimen Source: Throat Specimen Site: Not otherwise specified Specimen Throat - Not otherwise specified Performing Organization Address [facility] Phone Number [facility] DEPARTMENT OF PATHOLOGY AND [address] [place], [place] [address] [facility] [address] [place], [place] [address] Strep screen culture (04/26/2019 11:55 PM SEBD TEACHER) Pathologist [facility] Strep screen No beta hemolytic Streptococci isolated H [facility] culture isolate Comment: HOSPITAL Specimen Information Specimen Source: Throat Specimen Site: Not otherwise specified Specimen Throat - Not otherwise specified Performing Organization Address City/State/Zipcode Phone Number [facility] DEPARTMENT OF PATHOLOGY AND [address] [place], [place] [address] [address] Urinalysis screen and microscopy, with reflex to culture (04/26/2019 11:54 PM SEBD TEACHER) Specimen site Clean catch [facility] Color, UA Yellow [facility] Appearance, UA Clear [facility] Specific gravity, UA 1.018 1.001 - 1.035 [facility] pH, UA 6.0 5.0 - 8.5 [facility] Protein, UA Negative Negative [facility] Glucose, UA Negative Negative [facility] Ketones, UA 1+ (A) Negative [facility] Bilirubin, UA Negative Negative [facility] Blood, UA Negative Negative [facility] Nitrite, UA Negative Negative [facility] Urobilinogen, UA Negative <2.0 [facility] Leukocyte esterase, Trace (A) Negative [facility] Epithelial cells, UA Many /HPF [facility] Round epithelial Moderate 0 - 1 /HPF [facility] cells, UA [facility] WBC, UA 4 0 - 5 /HPF [facility] RBC, UA 1 0 - 5 /HPF [facility] Bacteria, UA Trace None seen [facility] Yeast, UA None seen [facility] Yeast with None seen [facility] pseudohyphae, UA [facility] Specimen Urine Performing Organization Address City/State/Zipcode Phone Number [facility] DEPARTMENT OF PATHOLOGY AND [address] [place], [place] [address] GENOMIC MEDICINE [place] [address] [place], [place] [address] Urine drugs of abuse screen (04/26/2019 11:54 PM SEBD TEACHER) Amphetamine screen, Negative [place] urine [facility] Barbiturate screen, Negative [place] urine [facility] Benzodiazepine Negative [place] screen, urine [facility] Cocaine screen, urine Negative [facility] Methadone metabolite Negative [place] (EDDP), urine [facility] Opiates screen, urine Negative [facility] Oxycodone screen, Negative [place] urine [facility] Phencyclidine screen, Negative [place] urine [facility] Cannabinoid screen, Negative [place] urine Comment: [facility] Drug screen minimum concentration of detectability [facility] Amphetamines 1000 ng/mL HOSPITAL Barbiturates 200 ng/mL [...] Urine Performing Organization Address City/State/Zipcode Phone Number [facility] DEPARTMENT OF PATHOLOGY AND [address] [place], [place] [address] GENOMIC MEDICINE [facility] [address] [place], [place] [address] after 02/02/2019 Insurance Payer Benefit Plan / Subscriber ID Effective Dates Phone Addre ss Type Group Card [employer] [facility] xxxxxxxxx 2018-Present HMO CHOICE [facility] Advance Directives For more information, please contact: [phone] Type Date 

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
--- OUTSIDE RECORDS SUMMARY | 2020-02-03 09:00 | XMS REPORT | Continuity of Care Document ---
:1985 Author Organization [facility] t Address [address] [place] [address] Care Team Providers Name Role Phone UNKNOWN Primary Care Physician Unavailable Sloane Doty Attending Clinician Bety CRUZ Attending Clinician Clay Attending Clinician Unavailable Brooks Attending Clinician [phone] Ese Attending Clinician Unavailable Collin Alarcon Attending Clinician Unavailable Chayo Attending Clinician Unavailable Falguni Attending Clinician Unavailable GEE PHILLIPS M.D. Attending Clinician Unavailable Renata Travis Attending Clinician BETY Admitting Clinician Unavailable GEE PHILLIPS M.D. Admitting Clinician Unavailable Rk Krishnamurthy Admitting Clinician Brooks Unavailable [phone] Payers Payer Name Policy Type Policy Number Effective Date Expiration Date S fareed [facility] xxxxxxxxx 2018 [facility] 00:00:00 Catholic [facility] CHC/STAR [id number]-[facility] O Advance Directives Directive Decision Effective Date Termination Date Comments Sour ce Yes N/A [facility] Problems Condition Condition Condition Status Onset Resolution [...] ng Abdominal Abdominal Disease Active 2018-05 Ha acunaeli pain pain 2-12 Methodi during during 00:00: st 00 in third in third trimester trimester Influenza Influenza Disease Active 2018-05 Ha kemp A A 2-12 Methodi 00:00: st 00 Disease Active 2018-05 Ha kemp affected affected 2-12 Method i by by 00:00: st growth growth 00 restrictio restrictio n n Tobacco Tobacco Disease Active 2018-05 [facility] smoking smoking 2-12 Methodi affecting affecting 00:00: st 00 in third in third trimester trimester Respirator Respirator Disease Active 2018-05 [place] y system y system 2-12 Method i disease disease 00:00: st complicati complicati 00 ng ng in third in third trimester trimester GERD GERD Disease Active 2018-05 [facility] (gastroeso (gastroeso 2-12 Me thodi phageal phageal 00:00: st reflux reflux 00 disease) disease) Cough Cough Disease Active 2018-05 [facility] 2-11 Methodi 00:00: st 00 Fever and [...] Condition Active 2019-02-14 Fernando Guy drug abuse 02-09 08:05:25 Mima Com flor in 00:00: ty [...] RENAL 11-22 14:02:00 l FAILURE ACUTE 00:00: Sp DUE TO RENAL 00 RHABDOMYOL FAILURE YSI DUE TO RHABDOMYOL YSI Active 11/22/2016 [facility] CHEST Diagnosis Active 2016-11-22 Mem oria TRAUMA 11-22 21:58:00 l CHEST 00:00: [place] TRAUMA 00 Active 11/22/2016 [facility] Problem Condition [facility] History of Problem Resolve 2016-12-04 Memoria cholecyste d 00:55:05 l ctomy History [place] (situation of ) cholecyste ctomy (situation ) Resolved Problem 12/04/2016 [facility] Asthma Problem Resolve 2016-12-04 Torsten sacha (disorder) d 00:55:05 l Asthma [place] (disorder) Resolved Problem 12/04/2016 [facility] Bipolar Problem Resolve 2016-12-04 Mem oria disorder d 00:55:05 l (disorder) Bipolar Her mccarty disorder (disorder) Resolved Problem 12/04/2016 [facility] ACUTE Diagnosis Active 2017-03-29 Mem oria KIDNEY 14:02:00 l FAILURE, ACUTE [place] UNSPECIFIE KIDNEY D FAILURE, UNSPECIFIE D Active [facility] History of Past Illness Condition Condition Condition Status Onset Resolution Last Treating Co mments Source Name Details Category Date Date Treatment Clinician Date 18 Weeks Condition Inactiv 2019-02-16 2019-02-09 [place], [place] Gestation e 02-09 00:00:00 13:17:00 Mima [...] Comments Source History of tobacco Cigarette Smoker [facility] use Catholic Sex Assigned At [facility] Cigarettes smoked 2019-10-01 2019-10-01 [facility] current (pack per 00:00:00 00:00:[address] day) - Reported Alcohol intake 2019-10-01 2019-10-01 Ex-drinker [facility] 00:00:00 00:00:00 (finding) Catholic Tobacco Comment 2019-04-27 2019-04-27 pt states she is Ha ston 00:00:00 00:00:00 trying to quit Catholic time of call 2019-02-22 2019-02-22 02/22/2019 8:48 AM [place] 08:48:27 08:48:27 Counts Include [facility] Health smoking/tobacco 2019-02-09 2019-02-09 Complete Legacy cessation, patient 10:38:39 10:38:39 Commun ity education and Health counseling sexual orientation 2019-02-09 2019-02-09 heterosexual [place] 10:38:39 10:38:39 Counts Include 234 [facility] At [facility] Health social history E&M 2019-02-09 2019-02-09 Patient [...] infected areas? Health Social History 2016-11-23 2016-11-23 [facility] 10:09:36 10:09:36 Sp Smoking Status Start Date Stop Date Source Current every day smoker 2019-10-01 00:00:00 Ha ston Catholic Medications Ordered Filled Start Stop Current Ordering Indication Dosage Frequency Signature Comments Components Source Medication Medication Date Date Medication? Clinician (SIG) Name Name buPROPion 2018-05- No 450mg QD Take 1 [place] XL (FORFIVO 06-30 tablet Metho di XL) 450 mg 00:00: 23:59 ([address] 24 hr 00 :00 total) by tablet mouth daily for 30 days. busPIRone 2018-05- No 5mg Q.[id number] Take 5 mg Rivas (BUSPAR) 5 06-29- [id number] by mouth 3 Methodi MG tablet 15:07: 00:00 3D (three) st 24 :00 times a day. gabapentin 2018-05- No 600mg Q.[id number] Take 600 Rivas (NEURONTIN) 06-29 [id number] mg by Methodi 600 mg 15:07: 00:00 [...] 150mg QD Take 150 [place] XL 2- 12-13 mg by Methodi (WELLBUTRIN 15:07: 00:[address] XL) 150 MG 24 :00 daily. 24 hr tablet ARIPiprazol 2018-05- No 5mg QD Take 5 mg Rivas e (ABILIFY) 06-29 by mouth Met hodi 5 MG tablet 15:07: 00:[address] 24 :00 buPROPion 2018-05- No 150mg Take 150 [place] XL - 12-13 mg by Methodi (WELLBUTRIN 15:07: 00:[address] XL) 150 MG 24 :00 24 hr tablet ARIPiprazol 2018- Yes 1064mg Inject [place] e lauroxil 13 1,064 mg Metho di (ARISTADA) 15:07: into the st 1,064 18 shoulder, mg/3.9 mL thigh, or suspension, buttocks. extended rel syring busPIRone 2018-05- No 30mg Q.[id number] Take 1 Rivas (BUSPAR) 30 06-29 [id number] tablet (30 Methodi MG tablet 00:00: 23:59 [...] Mima Take four Leg acy (METRONIDAZ 0-01 [place] in a Communi OLE) 500 MG 00:00: single ty TABS 00 dose Health (DIPHENHYDR Yes One at [place] AMINE HCL) 9 bedtime at Com flor 50 MG CAPS 00:00: needed ty 00 Health (BUSPIRONE Yes 1{Table 2xD One twice Legacy HCL) 30 MG 9- t} daily as Commu ni TABS 00:00: needed ty 00 Health ARISTADA Yes One every [place] (ARIPIPRAZO 02-09 two months Co mmuni LE 00:00: IM ty LAUROXIL) 00 Health 1064 MG/3.9ML PRSY WELLBUTRIN Yes 1.5{Tab 1xD Take 1-1/2 Legacy XL 02-09 let} tablet Communi (BUPROPION 00:00: daily ty HCL) 300 MG 00 Health [id number] PREVACID Yes Mima Take one [place] (LANSOPRAZO 02-09 [place] every Communi LE) 15 MG 00:00: night ty CPDR 00 Health CITRANATAL Yes Mima Take daily Legacy 90 DHA 02-09 [facility] Communi (PRENAT W/O 00:00: ty A-FECBGL-DS 00 Health S-FA-DHA) 90-1 & 300 MG DICLEGIS Yes Mima Take two [place] (DOXYLAMINE 02-09 [place] at bedtime Co mmuni -PYRIDOXINE 00:00: and september ) 10-10 MG 00 take Health TBEC another in a.m. and another midafterno on if needed [id number] Yes 1{tbl} QD Take 1 Ha ston carb,glu-FA 02-09 tablet by [facility] mouth st (CITRANATAL 00 daily. [...] st, # 30 tab, 0 Refill(s), Pharmacy: [facility] [id number] escitalopra Yes 20 mg = 1 M emoria m 20 mg 7-17 tab, PO, l oral tablet 17:15: Darío BEST 00 before noon, 0 Refill(s) busPIRone Yes 30 mg = 2 Mem oria 15 mg oral 7-17 tab, PO, l tablet 17:15: BID, 0 Sp 00 Refill(s) buPROPion Yes 300 mg = 1 Me moria 300 mg/24 7-17 tab, PO, l hours (XL) 17:15: QAM, [place] oral 00 Before tablet, noon, 0 extended Refill(s) release lithium 300 Yes 300 mg = 1 Memoria mg oral 7-17 tab, PO, l tablet 17:15: BID, 0 [place] 00 Refill(s) gabapentin Yes 300 mg = Mem oria 600 MG Oral 7-17 0.5 tab, l Tablet 17:15: PO, TID, 0 Mariel nn 00 Refill(s) heparin No Notes: Memoria sodium, 7-15 porcine l porcine 21:00: heparin [place] 2500 UNT/ML 00 Injectable Solution potassium No Notes: Memori a chloride 7-11 (Same as: l 13:09: Potassium [place] 00 Chloride) Zyprexa No Notes: Memoria 7-11 (Same as: l 02:00: ZyPREXA) [place] lithium No Notes: Memoria 7-10 Give with l 14:00: food. Sp 00 (Same as: Eskalith) gabapentin No Notes: Memor ia 600 MG Oral 7-10 (Same as: l Tablet 14:00: Neurontin) Mariel nn Buspirone No Notes: Memori a 7-10 (Same As: l 14:00: BuSpar) [place] Escitalopra No Notes: Torsten sacha m 7-10 (Same as: l 14:00: Lexapro) Sp buPROPion No Notes: Memori a 24 hour 7-10 (Same as: l extended 14:00: Wellbutrin Her mccarty release 00 XL) "Do Not Crush" Haldol No Notes: Memoria 7-10 (Same as: l 13:50: Haldol) [place] 00 Haldol No Notes: Memoria 7-10 (Same as: l 13:49: Haldol) [place] Acetaminoph No Notes: Do M emoria en [...] 7-10 PO, Daily, l extended 09:57: 0 [place] release 00 Refill(s) busPIRone No 30 mg [...] en 7-10 acetaminop l 09:57: hen 4000 Sp 00 mg/day (4 gm/day). (Same as: Tylenol Extra Strength) Nicotine No Notes: Memoria 7-10 (Same as: l 09:56: Habitrol) Sp 00 "Remove old patch before applicatio n [...] CDT iodixanol No 100 mL, Memor ia 7-10 Route: l 05:43: IVP, Drug [place] 00 Form: SOLN, kg, ONCALL, STAT, Start date: 11/23/16 0:43:00 CDT, Duration: 1 doses or times, Dose = 2.2ml/kg, Max dose = 150ml -- "To be infused by Radiology Staff ONLY" Ativan No Notes: Memoria 7-10 (Same as: l 05:26: Ativan) Acetaminoph No Notes: Do M emoria en 11-23 not exceed l 05:02: 4 gm/day. [place] (Same as: Tylenol) Sodium No 1,000 mL, Memori a Chloride 7-10 1000 l 0.154 01:42: ml/hr, [place] MEQ/ML 00 Infuse Injectable Over: 1 Solution hr, Route: IV, 1,000, Drug form: INJ, ONCE, Priority: STAT, kg, Start date: 11/22/16 20:42:00 CDT, Duration: 1 doses or times, Stop date: 11/22/16 20:42:00 CDT Immunizations Ordered Immunization Filled Immunization Date Status Commen ts Source Name Name Rho (D) Immune 2018-01-02 Completed [facility] Globulin 00:00:00 Catholic Vital Signs Vital Name Observation Time Observation Value Comments Source Systolic blood 2019-04-28 09:08:00 106 mm[Hg] Stephanie n Catholic pressure Diastolic blood 2019-04-28 09:08:00 56 mm[Hg] Artem on Catholic pressure Heart rate 2019-04-28 09:08:00 95 /min Rob Tejada Body temperature 2019-04-28 09:08:00 36.94 Rachel Maria Elena gonzalez Catholic Respiratory rate 2019-04-28 09:08:00 20 /min Maria Elena Tejada Oxygen saturation in 2019-04-28 08:02:00 96 /min Rob Tejada Arterial blood by Pulse oximetry Body height 2019-04-26 23:15:00 157.5 cm Rob Tejada Body weight 2019-04-26 23:15:00 83.915 kg Rob Tejada BMI 2019-04-26 23:15:00 33.84 kg/m2 Rob Tejada Body Temperature 2019-03-16 18:33:00 98.0 [degF] [facility] Heart Rate 2019-03-16 18:33:00 101 /min [facility] Respiratory rate 2019-03-16 18:33:00 20 /min [facility] BP Systolic 2019-03-16 18:33:00 129 mm[Hg] [facility] BP Diastolic 2019-03-16 18:33:00 66 mm[Hg] [facility] Heart Rate 2019-03-16 18:15:00 101 /min [facility] Respiratory rate 2019-03-16 18:15:00 20 /min [facility] - [facility] BP Systolic 2019-03-16 18:15:00 129 mm[Hg] [facility] BP Diastolic 2019-03-16 18:15:00 66 mm[Hg] [facility] Body Temperature 2019-03-08 15:08:00 98.3 [degF] [facility] Heart Rate 2019-03-08 15:08:00 72 /min [facility] Respiratory rate 2019-03-08 15:08:00 20 /min [facility] BP Systolic 2019-03-08 15:08:00 102 mm[Hg] [facility] BP Diastolic 2019-03-08 15:08:00 66 mm[Hg] [facility] Weight 2019-03-08 10:34:00 176 [lb_av] [facility] BMI (Body Mass 2019-03-08 10:34:00 32.2 kg/m2 TIFFANI US - St. Index) Sammi Heart Rate 2019-03-08 10:11:00 84 /min [facility] Respiratory rate 2019-03-08 10:11:00 20 /min [facility] BP Systolic 2019-03-08 10:11:00 103 mm[Hg] [facility] BP Diastolic 2019-03-08 10:11:00 55 mm[Hg] [facility] Heart Rate 2016-12-01 13:50:00 [facility] Sp Temperature Oral (F) 2016-12-01 13:50:00 98 F [facility] Sp Respitory Rate 2016-12-01 13:50:00 Memori al [place] Systolic (mm Hg) 2016-12-01 13:50:00 Torsten rial Ps Diastolic (mm Hg) 2016-12-01 13:50:00 Mem orial Sp Heart Rate 2016-12-01 05:19:00 [facility] [place] Respitory Rate 2016-12-01 05:19:00 Memori al [place] Systolic (mm Hg) 2016-12-01 05:19:00 Torsten rial [place] Diastolic (mm Hg) 2016-12-01 05:19:00 Mem orial [place] Temperature Oral (F) 2016-12-01 05:19:00 98.0 F [facility] [place] Heart Rate 2016-12-01 01:45:00 [facility] [place] Respitory Rate 2016-12-01 01:45:00 Memori al Sp Systolic (mm Hg) 2016-12-01 01:45:00 Torsten rial [place] Diastolic (mm Hg) 2016-12-01 01:45:00 Mem orial Sp Temperature Oral (F) 2016-12-01 01:45:00 98.1 F [facility] [place] Weight 2016-11-23 10:00:00 Memorial Sp BMI Calculated 2016-11-23 10:00:00 Memori al [place] Height 2016-11-23 10:00:00 152.4 cm [facility] [place] Procedures Procedure Date / Time Performing Clinician Source Performed Minor level established 2019-09-28 00:00[facility] COMPLETE BLD COUNT 2019-04-28 04:48:00 Alexandro Marion on Catholic W/AUTO DIFF Romeo BASIC METABOLIC PANEL 2019-04-28 04:48:00 Alexandro Marion on Catholic Romeo ESTIMATED GFR 2019-04-28 04:48:00 DoniAlexandro Rob Met augiemonty Romeo US LIMITED 2019-04-27 04:39:12 Micheline Albert XR CHEST 2 VW 2019-04-27 02:51:28 Micheline Albert Meth odist HC COMPLETE BLD COUNT 2019-04-27 00:28:00 Micheline Albertist W/AUTO DIFF COMPREHENSIVE METABOLIC 2019-04-27 00:28:00 Micheline Albert Catholic PANEL ESTIMATED GFR 2019-04-27 00:28:00 Micheline Albert [...] Micheline Albert SCREEN Limited obstetrical 2019-03-08 00:00:00 [facility] ultrasound Sammi ROUTINE VENIPUNCTURE 2019-03-08 00:00:00 DIALLO S - [facility] OB US LIMITED FETUS(S) 2019-03-08 00:00:00 AMY HAGER - [facility] COMPREHEN METABOLIC PANEL 2019-03-08 00:00:00 [facility] - [facility] DRUG TEST PRSMV CHEM 2019-03-08 00:00:00 [facility]RI[facility] S - St. ANLYZR Sammi URINALYSIS AUTO W/O SCOPE 2019-03-08 00:00:00 CH [facility] - [facility] COMPLETE CBC W/AUTO DIFF 2019-03-08 00:00:00 [facility] - St. WBC Sammi URINE CULTURE/COLONY COUNT 2019-03-08 00:00:00 C HRSITA - Wells HYDRATE IV INFUSION ADD-ON 2019-03-08 00:00:00 C [facility] THER/PROPH/DIAG INJ IV 2019-03-08 00:00:00 AMY Schaeffer PUSH Sammi EMERGENCY DEPT VISIT 2019-03-08 00:00:00 DIALLO S - Wells Metoclopramide hcl 2019-03-08 00:00:00 [facility] injection Sammi Normal saline solution 2019-03-08 00:00:00 AMY DERASS - StEdelmira infus Sammi Urinalysis - - 2019-02-09 11:10:41 [place], Mima Leg acy Community In [facility] Caesarean section [facility] nn Cholecystectomy [facility] Plan of Care Planned Activity Planned Date Details Comments Source Future Scheduled Test 2020-01-16 INFLUENZA VACCINE H [facility] Catholic 00:00:00 [code = INFLUENZA VACCINE] Future Scheduled Test 2004 Screening for [place] on Catholic 00:00:00 malignant neoplasm of cervix (procedure) [code = 876672502] Future Scheduled Test Bacterial urine [facility]R I[facility] - St. culture [code = Sammi 630-4] Goal Patient referral [facility] - St. [code = 7323535 ] Sammi Goal Patient referral [facility] [code = 5723910 ] Sammi Goal Patient referral [facility] - St. [code = 0158353 ] Sammi Instructions Nausea and Vomiting [facility] - St[facility] of (DC) Sammi Instructions Tooth Decay, Adult [facility] Instructions Dental Pain (DC) [facility] Encounters Start End Encounter Admission Attending Care Care Encounter Source Date/Time Date/Time Type Type Clinicians Facility Department ID 2017-02-13 Inpatient C MCSETX MED [id number] Medical 21:30:00 [facility] 2019-09-28 2019-10-15 Discharged ROSE MARIE BACA [id number] [facility] 13:43:00 23:59:[address] 09 S - Wells Elizab e 2019-06-09 2019-06-09 Telephone [facility] [id number] 00:00:00 00:00:00 Sloane C TECHNICAL TESTING ENGINEER [id number] REGIONAL [id number] MATERNAL [id number] & CHILD 109 [facility] 2019-06-07 2019-06-07 Telephone [facility] [id number] 00:00:00 00:00:00 Sloane C TECHNICAL TESTING ENGINEER [id number] REGIONAL 4.2.7.2.686 MATERNAL [id number] & CHILD 109 [facility] 2019-06-01 2019-06-01 Routine [facility] [id number] 13:20:35 13:52:57 Sloane C TECHNICAL TESTING ENGINEER 350.1.13.10 Visit REGIONAL [id number] MATERNAL [id number] & CHILD 109 [facility] 2019-05-30 2019-05-30 Case [facility] [id number] 00:00:00 00:00:00 Management Sloane C TECHNICAL TESTING ENGINEER [id number] REGIONAL [id number] MATERNAL [id number] & CHILD 109 [facility] 2019-04-26 2019-04-28 Emergency [facility] 001 [id number] 56 [place] 00:00:00 00:00:00 MICHELINE Joel i 2019-03-16 2019-03-16 Departed ROSE MARIE BACA [id number] CHRIST 18:07:00 18:34:[address] - [address] Room Sammi Elizab e 2019-03-08 2019-03-08 Departed ROSE MARIE BACA [id number] [facility] 10:04:00 15:08:[address] S - St[address] Room Sammi Elizab e 2019-02-22 2019-02-22 Office Clay [facility] Adult Encount er/ Legacy 00:00:00 00:00:00 Visit [facility] [id number] [id number] 2019-02-21 2019-02-21 Office Brooks, HARSHA Legacy Encounter/ Legacy 00:00:00 00:00:00 Visit Mima Madden [id number] Com flor Dee [id number] ty TECHNICAL TESTING ENGINEER Health 2019-02-16 2019-02-16 Office Brooks, HARSHA Legacy Encounter/ Legacy 00:00:00 00:00:00 Visit Mima Madden [id number] Com flor Dee [id number] ty TECHNICAL TESTING ENGINEER Health 2019-02-16 2019-02-16 Office HARSHA Mulligan Legacy Encoun ter/ Legacy 00:00:00 00:00:00 Visit Jeanie [place] [id number] Com flor Dee [id number] ty TECHNICAL TESTING ENGINEER Health 2019-02-15 2019-02-15 Office Jeanie Mulligan Legacy E ncounter/ Legacy 00:00:00 00:00:00 Visit Mima Guy [id number] Jaquan Dee [id number] ty TECHNICAL TESTING ENGINEER Health 2019-02-14 2019-02-14 Office HARSHA Mulligan Legacy Encoun ter/ Legacy 00:00:00 00:00:00 Visit Jeanie Madden [id number] Com flor Luiz [id number] ty TECHNICAL TESTING ENGINEER Health 2019-02-14 2019-02-14 Office HARSHA Guy Legacy Encounter/ Legacy 00:00:00 00:00:00 Visit Mima [place] [id number] Com flor Luiz [id number] ty TECHNICAL TESTING ENGINEER Health 2019-02-10 2019-02-10 Office NaubinwayHARSHA amaya Legacy Encounter/ Legacy 00:00:00 00:00:00 Visit Mima [place] [id number] Com flor Nickolas [id number] ty TECHNICAL TESTING ENGINEER Health 2019-02-10 2019-02-10 Office HARSHA Guy Legacy Encounter/ Legacy 00:00:00 00:00:00 Visit Mima [place] [id number] Com flor [place] 046075 ty TECHNICAL TESTING ENGINEER Health 2019-02-10 2019-02-[address]SHA Legacy Encoun ter/ Legacy 00:00:00 00:00:00 Visit Jeanie [place] [id number] [facility] flor Reisgg 463958 ty TECHNICAL TESTING ENGINEER Health 2019-02-10 2019-02-10 Office Brooks, [facility] Legacy Encounter/ Legacy 00:00:00 00:00:00 Visit [facility] [id number] [facility] flor Olmos [id number] ty TECHNICAL TESTING ENGINEER Health 2019-02-10 2019-02-10 Office Jeanie Mulligan [facility] Legacy E ncounter/ Legacy 00:00:00 00:00:00 Visit Cheri Alarcon [place] [id number] [facility] [id number] ty TECHNICAL TESTING ENGINEER Health 2019-02-09 2019-02-09 Office [place], [facility] Legacy Encounter/ Legacy 00:00:00 00:00:00 Visit [facility] [id number] [facility] flor Luiz 390432 ty Pediatrics Healt h 2019-02-09 2019-02-09 Office Brooks, [facility] Legacy Encounter/ Legacy 00:00:00 00:00:00 Visit [facility] [id number] [facility] flormorteza Reisgg 349334 ty TECHNICAL TESTING ENGINEER Health 2019-02-09 2019-02-09 Office Brooks, Mima LC Legacy Enco unter/ Legacy 00:00:00 00:00:00 Visit Jeanie Mulligan [place] [phone] [facility] Lu[facility] 205701 ty Pediatrics Healt h 2019-02-09 2019-02-09 Office Brooks, [facility] Legacy Encounter/ Legacy 00:00:00 00:00:00 Visit [facility] [id number] [facility] flor Luiz 756957 ty Pediatrics Healt h 2019-02-09 2019-02-09 Office Jeanie Mulligan LC Legacy E ncounter/ Legacy 00:00:00 00:00:00 Visit Emilia Domingo [place] [id number] [facility] Lu[place] [id number] ty TECHNICAL TESTING ENGINEER Health 2019-02-09 2019-02-09 Office [place], [facility] Legacy Encounter/ Legacy 00:00:00 00:00:00 Visit [facility] [id number] [facility] flor Luiz 501022 ty TECHNICAL TESTING ENGINEER Health 2019-02-09 2019-02-09 Office Brooks, Mima [facility] Legacy Enco unter/ Legacy 00:00:00 00:00:00 Visit Jeanie Mulligan [place] [id number] Cheri Pinzon [place] 31 [phone] ty TECHNICAL TESTING ENGINEER Health 2019-02-09 2019-02-09 Office Antonyirma [facility] Legacy Encounte r/ Legacy 00:00:00 00:00:00 Visit Esther [place] [id number] [facility] flor Luiz [id number] Pediatrics Healt h 2016-11-22 2016-12-01 Outpatient Thaddeus [facility] [id number] 20:16:00 12:03:00 Omayrabenny Yanez Results Test Description Test Time Test Comments Results Result Comments Source APTIMA GONORRHEA/CHLAMYDIA 2019-12-02 20:11:00 Test Item Value Reference Range Interpretation Comme nts CHLAMYDIA TRACHOMATIS, CUATE (test Negative Negative code = GENPROCH) NEISSERIA GONORRHOEAE, CUATE (test Negative Negative Performed at: [facility] Hoyt code = GENPROGC) [place] [address] [address] [place], [place] [id number] Lab D irector: Yasmeen Plummer MD, Phone : [phone] US PELVIS NON-OB [id number] 08:35:[address] [id number] IMAGING REPORTPatient Name: JULIA LONG LDate of Service: [id number]: 34 Sex: F Order #: [id number] Room: ERSDOB: 1985 X-Ray Number: [id number] Record Number: [id number] Hospital Number: [id number] Physician: MICHAEL RAMOS - Ordering Physician: ARLIN [...] AMLegally authenticated by JULIANNE MACIAS JR 2019-11-29 08:33:04P 2019-11-29 05:02:00 Test Item Value Reference Range [...] glucose = GLUCOSE) normal <100 MG/ DL- [employer] recommendation* * CALCIUM (test [...] mL/min/1.73m2 mL/min/1.73m2 is considered norm al. [id number] 04:24:00 Test Item Value Reference Range Interpretation Comments Report Text (test code = CKA 2019-11-29 424 Report Text) Report Text7 (test code = NO TRICHOMONAS SEEN Report Text7) Report Text8 (test code = NO YEAST SEEN Report Text8) [id number] 03:39:00 Test Item Value Reference Range Interpretation [...] code 7.4 K/UL 1.2-7.2 H = NEUT) [id number] 00:45:00 Test Item Value Reference Range Interpretation [...] HCGIPC) HCG LOT # (test code = [id number] UHCGLOT) HCG EXPIRATION DATE 03-16-21 (test code = UHCGEXP) Strep screen [id number] 07:37:17 Test Item Value Reference Range Interpretation Comments Strep screen No beta hemolytic Specimen culture Streptococci InformationSpec imen isolate (test isolated Source: Throat Specimen code = 2246) Site: Not other marroquin specified [facility] [id number] 08:05:34 Test Item Value Reference Range Interpretation Comments Urine culture Mixed kerrie Specimen isolate (test <=10-3 col/cc InformationSp ecimen code = 51808-9) Source: Urin eSpecimen Site: Clean cat [facility] [id number] 08:05:34 Test Item Value Reference Range Interpretation Comments Gram stain No WBC's or Specimen result (test organisms seen. InformationS pecimen code = 664-3) Source: UrineS pecimen Site: [facility] MethodistBasic metabolic [id number] 05:45:22 Test Item Value Reference Range Interpretation Comments Sodium (test code = 2951-2) 137 135- 150 mEq/L Potassium (test code = 2823-3) 3.1 3.5- 5.0 mEq/L L Chloride (test code = 2075-0) 105 98- 112 mEq/L CO2 (test code = 2027-9) 19 mmol/L 24-31 L Anion gap (test code = 72266-4) 13@ANIO 7- 15 mEq/L BUN (test code = 3094-0) 4 mg/dL 7-18 L Creatinine (test code = 2160-0) 0.70 mg/dL 0.5-0.9 Glucose (test code = 2345-7) 98 mg/dL 65-100 Calcium (test code = 36122-1) 8.0 mg/dL 8.3-10.2 L Lab Interpretation (test code = Abnormal 15559-4) [facility] MethodistEstimated [id number] 05:45:21 Test Item Value Reference Range Interpretation Comments Estimated GFR (test >=90 mL/min/1.73 m2 Alfonso deras Units code = 5488) InterpretationG 1 >=90 Normal or highG2 60-89 Mildly xlytilnwgE5e 45-59 Mildly to mode rately plgvzlplnA7u 30-44 Moderately to severely decreasedG4 15-29 Severely decre asedG5 <15 Kidn ey failureThe eGFR was calculated abelardo killian the Chronic Kidney Disease Epidemiology Co llaboration (CKD-EPI) equat ion. Interpretation is based on recommendations of the National Kidney Foundation-Kidn ey Disease Outcomes Qualit y Initiative (NKF-KDOQI) pub lished in 2014. [facility] MethodistCBC with platelet and eqfvqnzuthio7601-55-08 05:29:43 Test Item Value Reference Range Interpretation Comments WBC (test code = 11657-7) 8.9 4.2- 11.0 k/uL RBC (test code = 47338-5) 2.90 m/uL 4.04-5.86 L HGB (test code = 718-7) 9.4 g/dL 11.5-15.3 L HCT (test code = 4544-3) 28.7 % 34-45 L MCV (test code = 787-2) 99.0 fL 80-98 H MCH (test code = 785-6) 32.4 pg 27-34 MCHC (test code = 786-4) 32.8 g/dL 31.5-36.5 RDW - SD (test code = 93633-6) 45.3 fL 37-51 MPV (test code = 27465-7) 11.9 fL 7.4-10.4 H Platelet count (test code = 169 150- 400 k/uL 47235-7) Nucleated RBC (test code = 43793-4) 0.00 /100 WBC Neutrophils (test code = 16699-9) 76.6 % 36-66 H Lymphocytes (test code = 29056-2) 12.9 % 24-44 L Monocytes (test code = 66891-3) 9.0 % 0-6 H Eosinophils (test code = 67672-0) 0.3 % 0-6 Basophils (test code = 32513-7) 0.5 % 0-1.2 Immature granulocytes (test code = 0.7 % 0-1 38409-1) Lab Interpretation (test code = Abnormal 55053-1) Rivas Shar [id number] 05:02:14Hm Interface, Radiology Results - 04/27/2019 5:05 [...] Biometry Ratios:*CI: 80.10 *FL/AC: 20.50 *FL/BPD: 68.34 [id number] MethodistXR Chest 2 [id number] 02:57:34 Interface, Radiology Results 04/27/2019 3:00 AM CSTEXAMINATION: XR CHEST 2 VWCLINICAL HISTORY: Cough persistentCOMPARISON: NoneIMPRESSION:Mildly prominent bronchovascular markings maybe reflective of marginal pneumonia, atypical bacterial pneumonia, or perihilar vascular congestion.Cardiomediastinal silhouette is within normal limits of size.Otherwise no focal airspace consolidation is identified. No sizable pleural effusion. No pneumothorax identified.No acute osseous abnormalities are visualized.[id number] MethodistComprehensive metabolic cngkk9801-12-36 01:00:06 Test Item Value Reference Range Interpretation Comments Sodium (test code = 2951-2) 136 135- 150 mEq/L Potassium (test code = 2823-3) 3.5 3.5- 5.0 mEq/L Chloride (test code = 2075-0) 105 98- 112 mEq/L CO2 (test code = 8-9) 18 mmol/L 24-31 L Anion gap (test code = 56878-9) 13@ANIO 7- 15 mEq/L BUN (test code = 3094-0) 5 mg/dL 7-18 L Creatinine (test code = 2160-0) 0.70 mg/dL 0.5-0.9 Glucose (test code = 2345-7) 97 mg/dL 65-100 Calcium (test code = 90362-2) 8.5 mg/dL 8.3-10.2 Protein (test code = [...] 1976-) Lab Interpretation (test code = Abnormal 49119-8) Rob MarycruzistInfluenza antigen test, reflex negative to [id number] 00:45:39 Test Item Value Reference Interpretation Comments Range Influenza antigen Positive for A Specimen (test code = Influenza A InformationSpec imen 60274-7) antigen.Negati Source: Nares Specimen ve for Flu B Site: Left Lab Interpretation Abnormal (test code = 36428-7) Rob JoelmontyGroup A strep, rapid dkgnijj7207-79-06 00:44:52 Test Item Value Reference Interpretation Comments Range Group A Negative for Group Specimen strep, rapid A Streptococcus InformationS pecimen antigen antigen. Source: ThroatS pecimen result (test Site: Not other marroquin code = specified 3994047) Rob JoelmontyUrine drugs of abuse fbmeia1143-33-66 00:36:42 Test Item Value Reference Interpretation Comments Range Amphetamine screen, Negative urine (test code = 3349-8) Barbiturate screen, Negative urine (test code = 3377-9) Benzodiazepine Negative screen, urine (test code = 3390-2) Cocaine screen, Negative urine (test code = 3397-7) Methadone Negative metabolite (EDDP), urine (test code = 00043-7) Opiates screen, Negative urine (test code = 3879-4) Oxycodone screen, Negative urine (test code = 95442-1) Phencyclidine Negative screen, urine (test code = [...] Specimen site (test code = Clean catch 7136978) Color, UA (test code = 5778-6) Yellow Appearance, UA (test code = Clear 5767-9) Specific gravity, UA (test code = 1.018 1.001-1.035 5811-5) pH, UA (test code = 5803-2) 6.0 5.0-8.5 Protein, UA (test code = 63290-2) Negative Negative Glucose, UA (test code = 05833-7) Negative Negative Ketones, UA (test code = 2514-8) 1+ Negative A Bilirubin, UA (test code = Negative Negative 5770-3) Blood, UA (test code = 5794-3) Negative Negative Nitrite, UA (test code = 5802-4) Negative Negative Urobilinogen, UA (test code = Negative <2.0 10711-8) Leukocyte esterase, UA (test code Trace Negative A = 5799-2) Epithelial cells, UA (test code = Many /HPF 5787-7) Round epithelial cells, UA (test Moderate 0- 1 /HPF code = 84422-5) WBC, UA (test code = 5821-4) 4 0- 5 /HPF RBC, UA (test code = 55235-5) 1 0- 5 /HPF Bacteria, UA (test code = Trace None seen 52981-5) Yeast, UA (test code = 69095-8) None seen Yeast with pseudohyphae, UA (test None seen code = 86614-6) Lab Interpretation (test code = Abnormal 30087-8) Rob MethodistAutomated blood leukocyte count (number/volume)2019-03-08 10:20:00 Test Item Value Reference Range Interpretation Comments White Blood Count (test code = 6690-2) 13.2 [facility] count (number/volume) 2019-03-08 10:20:00 Test [...] [facility] ElizabethAutomated erythrocyte mean corpuscular volume (MCV) hfofyqeenrs7858-12-36 10:20:00 Test Item Value Reference Range Interpretation Comments Mean Corpuscular Volume (test code = 98 787-2) [facility] ElizabethAutomated erythrocyte mean corpuscular hemoglobin (mass per erythrocyte)2019-03-08 10:20:00 Test Item Value Reference Range Interpretation Comments Mean Corpuscular Hemoglobin (test code 31.6 = 785-6) [facility] ElizabethAutomated erythrocyte mean corpuscular hemoglobin concentration measurement (mass/deq9055-46-92 10:20:00 Test Item Value Reference Range Interpretation Comments Mean Corpuscular Hemoglobin Concent 32.3 (test code = 786-4) [facility] ElizabethAutomated erythrocyte distribution width sqtky3675-27-58 10:20:00 Test Item Value Reference Range Interpretation [...] Mean Platelet Volume (test code = 11.0 55808-4) [facility] ElizabethService comment [id number] 10:20:00 Test Item Value Reference Range Interpretation [...] 764-1) [facility] ElizabethManual blood lymphocytes/100 jqqadtgsxh8152-43-62 10:20:00 Test Item Value Reference Range Interpretation Comments Lymphocytes % (Manual) (test code = 8 737-7) [facility] ElizabethManual blood monocytes/100 kkdsmmsafv4973-23-20 10:20:00 Test Item Value Reference Range Interpretation Comments Monocytes % (Manual) (test code = 4 744-3) [facility] ElizabethManual blood eosinophil count as percentage of total aghuzawgeq3179-76-99 10:20:00 Test Item Value Reference Range Interpretation Comments Eosinophils % (Manual) (test code = 1 714-6) [facility] ElizabethBlood platelet detection by light iodjojdbqm2959-05-13 10:20:00 Test Item Value Reference Range Interpretation [...] Glomerular Filtration Rate 121 (test code = 21311-3) [facility] ElizabethSerum or plasma glucose measurement (mass/volume) 2019-03-08 10:20:00 Test Item Value Reference Range Interpretation Comments Glucose Level (test code = 2345-7) [address] [facility] ElizabethSerum or plasma calcium measurement (mass/volume) 2019-03-08 10:20:00 Test Item Value Reference Range Interpretation Comments Calcium Level (test code = 07119-3) 9.2 [facility] ElizabethSerum or plasma [...] Aminotransferase (ALT/SGPT) 12 (test code = 1744-2) [facility] ElizabethSerum or plasma protein measurement [...] 80 6768-6) [facility] ElizabethUrine methamphetamine eiolyr1946-09-68 10:20:00 Test Item Value Reference Range Interpretation Comments Urine Methamphetamines Screen (test Negative code = 16383-3) [facility] ElizabethUrine propoxyphene screening qnvm5691-03-86 10:20:00 Test Item Value Reference Range Interpretation Comments Urine Propoxyphene Screen (test code Negative = 82957-4) [facility] ElizabethUrine amphetamines detection by screening method 2019-03-08 10:20:00 Test Item Value Reference Range Interpretation Comments Urine Amphetamines Screen (test code Negative = 14369-5) [facility] buprenorphine screen with reflex confirmation 2019-03-08 10:20:00 Test Item Value Reference Range Interpretation Comments Urine Buprenorphine (test code = Negative 3414-0) [facility]Urine barbiturates detection by screening method 2019-03-08 10:20:00 Test Item Value Reference Range Interpretation Comments Urine Barbiturates Screen (test code Negative = 45338-5) [facility]Urine benzodiazepines detection by screening method 2019-03-08 10:20:00 Test Item Value Reference Range Interpretation Comments Urine Benzodiazepines Screen (test Negative code = 95453-8) [facility]Urine benzoylecgonine detection by screening method 2019-03-08 10:20:00 Test Item Value Reference Range Interpretation Comments Urine Cocaine Screen (test code = Negative 75827-6) [facility]Urine methadone [id number] 10:20:00 Test Item Value Reference Range Interpretation Comments Urine Methadone, Qualitative (test Negative code = 84267-9) [facility]Urine opiates screening pawq5916-07-89 10:20:00 Test Item Value Reference Range Interpretation Comments Urine Opiates Screen (test code = Negative 80170-3) [facility]Urine phencyclidine detection by screening method 2019-03-08 10:20:00 Test Item Value Reference Range Interpretation Comments Urine Phencyclidine Screen (test Negative code = 24389-2) [facility]Urine cannabinoids detection by screening method 2019-03-08 10:20:00 Test Item Value Reference Range Interpretation Comments Urine Cannabinoids (test code = Negative 82357-2) [facility] ElizabethScreening urine tricyclic antidepressants detection 2019-03-08 10:20:00 Test Item Value Reference Range Interpretation Comments Ur Tricyclic Antidepressants Screen Negative (test code = 12613-2) [facility]Urine oxycodone detection by screening qorkpc4740-14-46 10:20:00 Test Item Value Reference Range Interpretation Comments Urine Oxycodone Screen (test code = Negative 50525-1) [facility] ElizabethSpecific gravity of Urine by Automated test strip 2019-03-08 10:20:00 Test Item Value Reference Range Interpretation Comments Urine Specific [place] (test code = 1.018 98799-6) [facility] ElizabethUrine pH measurement by automated test [id number] 10:20:00 Test Item Value Reference Range Interpretation Comments Urine pH (test code = 01200-1) 8.0 [facility] ElizabethUrine drug screen comment xgnynvtkfjawae2100-65-71 10:20:00 Test Item Value Reference Range Interpretation Comments Urine Drug Screen Comment (test code See Note = 49705-9) [facility] ElizabethAutomated blood leukocyte count [...] [facility]. ElizabethAutomated erythrocyte mean corpuscular volume (MCV) tpegmzkuguy4124-74-00 10:20:00 Test Item Value Reference Range Interpretation Comments Mean Corpuscular Volume (test code = 98 fL 787-2) [facility] ElizabethAutomated erythrocyte mean corpuscular hemoglobin (mass per erythrocyte)2019-03-08 10:20:00 Test Item Value Reference Range Interpretation Comments Mean Corpuscular Hemoglobin (test 31.6 pg code = 785-6) [facility] ElizabethAutomated erythrocyte mean corpuscular hemoglobin concentration measurement (mass/hle0222-26-48 10:20:00 Test Item Value Reference Range Interpretation Comments Mean Corpuscular Hemoglobin Concent 32.3 g/dL (test code = 786-4) [facility] ElizabethAutomated erythrocyte distribution width slgxz0916-65-52 10:20:00 Test Item Value Reference Range Interpretation [...] Mean Platelet Volume (test code = 11.0 30025-1) [facility] ElizabethService comment [id number] 10:20:00 Test Item Value Reference Range Interpretation [...] 764-1) [facility] ElizabethManual blood lymphocytes/100 srelctugyj4234-84-19 10:20:00 Test Item Value Reference Range Interpretation Comments Lymphocytes % (Manual) (test code = 8 % 737-7) [facility] ElizabethManual blood monocytes/100 rcvodwtjly1634-53-34 10:20:00 Test Item Value Reference Range Interpretation Comments Monocytes % (Manual) (test code = 4 % 744-3) [facility] ElizabethManual blood eosinophil count as percentage of total prpyovakbo7671-54-66 10:20:00 Test Item Value Reference Range Interpretation Comments Eosinophils % (Manual) (test code = 1 % 714-6) [facility] ElizabethBlood platelet detection by light xwpenlnsxz1865-11-50 10:20:00 Test Item Value Reference Range Interpretation [...] Level (test code = 104 mmol/L 2074-0) [facility] ElizabethSerum or plasma carbon dioxide measurement (moles/volume)2019-03-08 10:20:00 Test Item Value Reference Range Interpretation Comments Carbon Dioxide Level (test code = 19 mmol/L 2027-9) [facility] ElizabethSerum or plasma anion gap 4 determination (moles/volume) 2019-03-08 10:20:00 Test Item Value Reference Range Interpretation Comments Anion Gap (test code = 1863-0) 18 [facility] ElizabethSerum or plasma urea nitrogen measurement (mass/volume) 2019-03-08 10:20:00 Test Item Value Reference Range Interpretation Comments Blood Urea Nitrogen (test code = 8 mg/dL 3094-0) [facility] - . ElizabethSerum or plasma creatinine measurement (mass/volume) 2019-03-08 10:20:00 Test Item Value Reference Range Interpretation Comments Creatinine (test code = 2160-0) 0.6 mg/dL [facility] HoustonGlomerular filtration rate (GFR) estimation/1.73 sq m using serum, plasma, or whole blood creatininemeasurement with MDRD equation 2019-03-08 10:20:00 Test Item Value Reference Range Interpretation Comments Estimat Glomerular Filtration Rate 121 (test code = 51105-4) [facility]. ElizabethSerum or plasma glucose measurement (mass/volume) 2019-03-08 10:20:00 Test Item Value Reference Range Interpretation Comments Glucose Level (test code = 2345-7) 77 mg/dL [facility]. [facility] [place]ralbethSerum or plasma calcium measurement (mass/volume) 2019-03-08 10:20:00 Test Item Value Reference Range Interpretation Comments Calcium Level (test code = 76389-7) 9.2 mg/dL [facility] ElizabethSerum or plasma total bilirubin measurement (mass/volume)2019-03-08 10:20:00 Test Item Value Reference Range Interpretation Comments Total Bilirubin (test code = < 0.2 mg/dL 1976-) [facility]. ElizabethSerum or plasma aspartate aminotransferase measurement (enzymatic activity/volume)2019-03-08 10:20:00 Test Item Value Reference Range Interpretation Comments Aspartate Amino Transf (AST/SGOT) 15 U/L (test code = 1920-8) [facility] ElizabethSerum or plasma alanine aminotransferase measurement without P-5'-P (enzymatic activity/volume)2019-03-08 10:20:00 Test Item Value Reference Range Interpretation Comments Alanine Aminotransferase (ALT/SGPT) 12 U/L (test code = 1744-2) [facility] ElizabethSerum or plasma protein measurement (mass/volume) 2019-03-08 10:20:00 Test Item Value Reference Range Interpretation Comments Total Protein (test code = 2885-2) 6.5 g/dL [facility] ElizabethSerum or plasma albumin measurement (mass/volume) 2019-03-08 10:20:00 Test Item Value Reference Range Interpretation Comments Albumin (test code = 1751-7) 4.0 g/dL [facility] ElizabethSerum or plasma alkaline phosphatase measurement (enzymatic activity/volume)2019-03-08 10:20:00 Test Item Value Reference Range Interpretation Comments Alkaline Phosphatase (test code = 80 U/L 6768-6) [facility] ElizabethUrine methamphetamine oxyrmx3839-17-03 10:20:00 Test Item Value Reference Range Interpretation Comments Urine Methamphetamines Screen Negative ng/mL (test code = 10050-5) [facility] ElizabethUrine propoxyphene screening [id number] 10:20:00 Test Item Value Reference Range Interpretation Comments Urine Propoxyphene Screen Negative ng/mL (test code = 31099-9) [facility] ElizabethUrine amphetamines detection by screening method 2019-03-08 10:20:00 Test Item Value Reference Range Interpretation Comments Urine Amphetamines Screen Negative ng/mL (test code = 17852-1) [facility] ElizabethUrine buprenorphine screen with reflex confirmation 2019-03-08 10:20:00 Test Item Value Reference Range Interpretation Comments Urine Buprenorphine (test code Negative ng/mL = 3414-0) [facility] ElizabethUrine barbiturates detection by screening method 2019-03-08 10:20:00 Test Item Value Reference Range Interpretation Comments Urine Barbiturates Screen Negative ng/mL (test code = 99554-9) [facility] ElizabethUrine benzodiazepines detection by screening method 2019-03-08 10:20:00 Test Item Value Reference Range Interpretation Comments Urine Benzodiazepines Screen Negative ng/mL (test code = 16224-0) [facility] ElizabethUrine benzoylecgonine detection by screening method 2019-03-08 10:20:00 Test Item Value Reference Range Interpretation Comments Urine Cocaine Screen (test Negative ng/mL code = 47166-1) [facility] ElizabethUrine methadone [id number] 10:20:00 Test Item Value Reference Range Interpretation Comments Urine Methadone, Qualitative Negative ng/mL (test code = 93184-1) [facility] ElizabethUrine opiates screening [id number] 10:20:00 Test Item Value Reference Range Interpretation Comments Urine Opiates Screen (test Negative ng/mL code = 36147-4) [facility] ElizabethUrine phencyclidine detection by screening method 2019-03-08 10:20:00 Test Item Value Reference Range Interpretation Comments Urine Phencyclidine Screen Negative ng/mL (test code = 01598-6) [facility] ElizabethUrine cannabinoids detection by screening method 2019-03-08 10:20:00 Test Item Value Reference Range Interpretation Comments Urine Cannabinoids (test code Negative ng/mL = 15728-8) [facility] ElizabethScreening urine tricyclic antidepressants detection 2019-03-08 10:20:00 Test Item Value Reference Range Interpretation Comments Ur Tricyclic Antidepressants Negative ng/mL Screen (test code = 01220-6) [facility]Urine oxycodone detection by screening [id number] 10:20:00 Test Item Value Reference Range Interpretation Comments Urine Oxycodone Screen (test Negative ng/mL code = 71640-1) [facility] ElizabethSpecific gravity of Urine by Automated test strip 2019-03-08 10:20:00 Test Item Value Reference Range Interpretation Comments Urine Specific [place] (test code = 1.018 21024-7) [facility] ElizabethUrine pH measurement by automated test [id number] 10:20:00 Test Item Value Reference Range Interpretation Comments Urine pH (test code = 70909-4) 8.0 [facility] ElizabethUrine drug screen comment [id number] 10:20:00 Test Item Value Reference Range Interpretation Comments Urine Drug Screen Comment (test code See Note = 28885-6) [facility] ElizabethUrinalysis specimen collection [id number] 09:58:00 Test Item Value Reference Range Interpretation Comments Urine Source (test code = 03923-7) URINE [facility] ElizabethColor of Urine by [id number] 09:58:00 Test Item Value Reference Range Interpretation Comments Urine Color (test code = 59884-7) Yellow [facility] ElizabethUrine clarity xvxiqkaouskci5959-46-64 09:58:00 Test Item Value Reference Range Interpretation Comments Urine Appearance (test code = 60083-3) Turbid [facility] ElizabethUrine pH measurement by automated test [id number] 09:58:00 Test Item Value Reference Range Interpretation Comments Urine pH (test code = 90393-1) 8.0 [facility] ElizabethSpecific gravity of Urine by Automated test strip 2019-03-08 09:58:00 Test Item Value Reference Range Interpretation Comments Urine Specific [place] (test code = 1.019 39781-2) [facility] ElizabethUrine protein measurement by automated test strip (mass/volume)2019-03-08 09:58:00 Test Item Value Reference Range Interpretation Comments Urine Protein (test code = 37462-6) 10 [facility] ElizabethUrine glucose measurement by automated test strip (mass/volume)2019-03-08 09:58:00 Test Item Value Reference Range Interpretation Comments Urine Glucose (UA) (test code = Negative 30990-5) [facility] ElizabethUrine ketones measurement by automated test strip (mass/volume)2019-03-08 09:58:00 Test Item Value Reference Range Interpretation Comments Urine Ketones (test code = 80022-7) Negative [facility] ElizabethUrine erythrocytes count by automated test strip (number/volume)2019-03-08 09:58:00 Test Item Value Reference Range Interpretation Comments Urine Occult Blood (test code = Negative 35469-9) [facility] ElizabethUrine nitrite detection by automated test strip 2019-03-08 09:58:00 Test Item Value Reference Range Interpretation Comments Urine Nitrite (test code = 71770-2) Negative [facility] ElizabethUrine total bilirubin measurement by automated test strip (mass/volume)2019-03-08 09:58:00 Test Item Value Reference Range Interpretation Comments Urine Bilirubin (test code = Negative 07556-6) [facility] ElizabethUrine urobilinogen measurement by automated test strip (mass/volume)2019-03-08 09:58:00 Test Item Value Reference Range Interpretation Comments Urine Urobilinogen (test code = Negative 78222-6) [facility] ElizabethUrine leukocytes count by automated test strip (number/volume)2019-03-08 09:58:00 Test Item Value Reference Range Interpretation Comments Urine Leukocyte Esterase (test code Negative = 77647-0) [facility] ElizabethMicroscopic examination of mcbzp0556-04-22 09:58:00 Test Item Value Reference Range Interpretation Comments Microscopic Urinalysis (T) (test code = ----- 61437-6) [facility] ElizabethUrine sediment erythrocyte count by microscopy (number/high power field)2019-03-08 09:58:00 Test Item Value Reference Range Interpretation Comments Urine RBC (test code = 25899-4) 0-2 [facility] ElizabethUrine sediment leukocyte [...] Urine Crystals (test code = None Seen 97289-3) [facility] ElizabethUrine sediment bacteria count [...] Interpretation Comments Urine Yeast (test code = 38014-7) None Seen [facility] ElizabethService comment 09:58:00 Test Item Value Reference Range Interpretation Comments Urinalysis Comment (test code = 8262-8) * [facility] ElizabethService comment 09:58:00 Test Item Value Reference Range Interpretation Comments Urine Culture Indicated (test code To follow = 8264-4) [facility] ElizabethUrinalysis specimen collection [id number] 09:58:00 Test Item Value Reference Range Interpretation Comments Urine Source (test code = 66535-1) URINE [facility] ElizabethColor of Urine by Ecic3545-80-21 09:58:00 Test Item Value Reference Range Interpretation Comments Urine Color (test code = 14577-2) Yellow [facility] ElizabethUrine clarity ptozovgpeztmr3717-08-76 09:58:00 Test Item Value Reference Range Interpretation Comments Urine Appearance (test code = 22501-0) Turbid [facility] ElizabethUrine pH measurement by automated test cejxf5760-49-32 09:58:00 Test Item Value Reference Range Interpretation Comments Urine pH (test code = 10801-5) 8.[address] [facility] Urine by Automated test strip 2019-03-08 09:58:00 Test Item Value Reference Range Interpretation Comments Urine Specific [place] (test code = 1.019 27705-1) [facility] protein measurement by automated test strip (mass/volume)2019-03-08 09:58:00 Test Item Value Reference Range Interpretation Comments Urine Protein (test code = 91578-8) 10 mg/dL [facility] glucose measurement by automated test strip (mass/volume)2019-03-08 09:58:00 Test Item Value Reference Range Interpretation Comments Urine Glucose (UA) (test code Negative mg/dL = 36685-9) [facility] ElizabethUrine ketones measurement by automated test strip (mass/volume)2019-03-08 09:58:00 Test Item Value Reference Range Interpretation Comments Urine Ketones (test code = Negative mg/dL 02506-9) [facility] ElizabethUrine erythrocytes count by automated test strip (number/volume)2019-03-08 09:58:00 Test Item Value Reference Range Interpretation Comments Urine Occult Blood (test code = Negative 83652-6) [facility] ElizabethUrine nitrite detection by automated test strip 2019-03-08 09:58:00 Test Item Value Reference Range Interpretation Comments Urine Nitrite (test code = 52239-1) Negative [facility] ElizabethUrine total bilirubin measurement by automated test strip (mass/volume)2019-03-08 09:58:00 Test Item Value Reference Range Interpretation Comments Urine Bilirubin (test code = Negative mg/dL 36053-7) [facility] ElizabethUrine urobilinogen measurement by automated test strip (mass/volume)2019-03-08 09:58:00 Test Item Value Reference Range Interpretation Comments Urine Urobilinogen (test code Negative mg/dL = 91436-7) [facility] ElizabethUrine leukocytes count by automated test strip (number/volume)2019-03-08 09:58:00 Test Item Value Reference Range Interpretation Comments Urine Leukocyte Esterase Negative {Kashif}/uL (test code = 26319-6) [facility] ElizabethMicroscopic examination of tcdec4910-16-43 09:58:00 Test Item Value Reference Range Interpretation Comments Microscopic Urinalysis (T) (test code = ----- 47777-4) [facility] count by microscopy (number/high power field)2019-03-08 09:58:00 Test Item Value Reference Range Interpretation Comments Urine RBC (test code = 01200-1) 0-2 /[HPF] [facility] sediment [...] Crystals (test code = None Seen /[HPF] 35396-6) [facility] sediment bacteria count [...] Yeast (test code = None Seen /[HPF] 90708-0) [facility] comment 09:58:00 Test Item Value Reference Range Interpretation Comments Urinalysis Comment (test code = 8262-8) * [facility] comment 09:58:00 Test Item Value Reference Range Interpretation Comments Urine Culture Indicated (test code To follow = 8264-4) [facility] ZVPDFM3120-04-96 16:12:00 Test Item Value Reference Range Interpretation [...] code = NEGATIVE NEGATIVE BMTPCP) ISTAT CHEM 27361-88-08 16:05:00 Test Item Value Reference Range Interpretation [...] used (test code = ALC BLD) for me dical purposes (treatment) onl y. Not intended for no n medical purpose s. MQXTMLGVQC2585-29-91 15:42:00 Test Item Value Reference Range Interpretation [...] UAMICRO (test code = UAMICRO) NO B-HCG, DYOVVPMMLMKE5532-67-98 15:42:00 Test Item Value Reference Range Interpretation Comments HCG (test code = 05217 MIU/ML A value of less than or HCG) equal to </= 4. 83 mIU/ml is considered N EGATIVE. A value between 4 .84 mIU/ml and 24.99 mIU/m l is considered INDE TERMINATE and should be r epeated in 48 hours if nec essary. A value of 25.0 m IU/ml or greater is cons idered POSITIVE. Updat ed: 09/21/2009 US OB LTLXQKK2274-79-17 15:26:00[address] [id number] IMAGING REPORTPatient Name: JULIA LONG LDate of Service: 45-51-4063Oji: 33 Sex: F Order #: [id number] Room: ERSDOB: 1985 X-Ray Number: [id number] Record Number: [id number] Hospital Number: [id number] Physician: MALIA BROWEROrdering Physician: MALIA BROWERLIMITED OB FRCMXBQLRE28/9/2019HISTORY: Nausea, vomiting, , cocaine useCOMPARISON: 02/14/2019A single, [...] 3:24 PMLegally authenticated by DERRICK PETERSON 2019-02-22 15:24:09FWH2976-34-11 14:47:00 Test Item Value Reference Range Interpretation [...] 14.8 K/UL 1.2-7.2 H = NEUT) OB SMRBPBV8603-77-74 13:22:[address] [id number] IMAGING REPORTPatient Name: JULIA LONGDakelsey of Service: 65-60-7808Xuh: 33 Sex: F Order #: [id number] Room: RUSTB: 1985 X-Ray Number: [id number] Record Number: [id number] Hospital Number: [id number] Physician: Praneeth KAMARAing Physician: GUERITA KAMARA OB [...] by KIM SUMNER 2019-02-14 13:20:24Neisseria gonorrhoeae DNA cjzya0106-32-21 12:45:00 Test Item Value Reference Range Interpretation Comments Neisseria gonorrhoeae DNA probe Negative Negative (test code = 88741-6) [facility] hybtk7944-62-17 12:45:00 Test Item Value Reference Range Interpretation Comments chlamydia DNA probe (test code = Negative Negative 15154-8) [facility] Hospitalurine mrqwvjq2238-70-13 12:32:00 Test Item Value Reference Range Interpretation Comments urine culture (test code = 11807) [facility] surface whdqrgq6226-38-68 12:32:00 Test Item Value Reference Range Interpretation Comments hepatitis B surface antigen (test Negative Negative code = 79) [facility] zmqiukcf4842-93-46 12:32:00 Test Item Value Reference Range Interpretation Comments Rh antibody (test code = 256) Negative Negative [facility] antibody, twsnu0088-05-86 12:32:00 Test Item Value Reference Range Interpretation Comments hepatitis C antibody, serum (test code <0.1 0.0-0.9 = 2722) [facility] Hospitalblood glucose, 1 hour after 50 gm oral wdcogqw1497-83-71 12:32:00 Test Item Value Reference Range Interpretation Comments blood glucose, 1 hour after 50 gm 75 mg/dL 65-139 oral glucose (test code = 1039) [facility] HospitalHIV-CMIA (Chemiluminescent Microparticle Immuno Assay) 2019-02-09 12:32:00 Test Item Value Reference Range Interpretation Comments HIV-CMIA (Chemiluminescent Non Reactive Non Reactive Microparticle Immuno Assay) (test code = 578244) [facility] reagin antibody, cvdzn7026-74-15 12:32:00 Test Item Value Reference Range Interpretation Comments rapid plasma reagin antibody, Non Reactive Non Reactive serum (test code = 308) [facility] Hospitalrubella antibody, serum, GoO9500-45-04 12:32:00 Test Item Value Reference Range Interpretation Comments rubella antibody, serum, IgG (test code 2.45 Immune >0.99 = 81) [facility] iwglaxw0918-99-74 12:32:00 Test Item Value Reference Range Interpretation Comments Rh antigen (test code = 255) Negative [facility] HospitalABO blood iitfv2306-76-69 12:32:00 Test Item Value Reference Range Interpretation Comments ABO blood group (test code = 116) A [facility] Hospitalurinalysis, microscopic qzvwtufvsnd5163-42-55 12:32:00 Test Item Value Reference Range Interpretation Comments urinalysis, microscopic examination MICNIP (test code = 2566) [facility] Healthnitrate, gelnp5814-01-03 12:32:00 Test Item Value Reference Range Interpretation Comments nitrate, urine (test code = 5135) Negative Negative [facility] Hospitalurobilinogen, urine, semiquantitative (dipstick) 2019-02-09 12:32:00 Test Item Value Reference Range Interpretation Comments urobilinogen, urine, semiquantitative 0.2 0.2-1.0 (dipstick) (test code = 326) [facility] Hospitalbilirubin, gcatv2612-65-30 12:32:00 Test Item Value Reference Range Interpretation Comments bilirubin, urine (test code = 319) Negative Negative [facility] Hospitalketones, urine, by test aidrb7235-13-30 12:32:00 Test Item Value Reference Range Interpretation Comments ketones, urine, by test strip (test Negative Negative code = 322) [facility] Hospitalglucose, urine, rkruphkjtwaevguh6980-79-66 12:32:00 Test Item Value Reference Range Interpretation Comments glucose, urine, semiquantitative Negative Negative (test code = 123) [facility] Hospitalprotein, urine, semiquantitative (dipstick)2019-02-09 12:32:00 Test Item Value Reference Range Interpretation Comments protein, urine, semiquantitative Negative Negative/Trace (dipstick) (test code = 1753-3) [facility] Hospitalleukocyte esterase, urine, by uciqotty3298-36-62 12:32:00 Test Item Value Reference Range Interpretation Comments leukocyte esterase, urine, by Negative Negative dipstick (test code = 327) [facility] Healthappearance, mmwkj9076-55-30 12:32:00 Test Item Value Reference Range Interpretation Comments appearance, urine (test code = 328) Clear Clear [facility] Healthurine svgcv0334-76-67 12:32:00 Test Item Value Reference Range Interpretation Comments urine color (test code = 2751) Yellow Yellow [facility] HospitalpH, urine, lfncjqqfnibxqsdu4107-95-80 12:32:00 Test Item Value Reference Range Interpretation Comments pH, urine, semiquantitative (test code 6.5 5.0-7.5 = 324) [facility] Hospitalspecific gravity, body gninz2114-82-90 12:32:00 Test Item Value Reference Range Interpretation Comments specific gravity, body fluid (test code 1.024 1.005-1.030 = 3512) [facility] Hospitalimmature granulocytes, percentage of total cells, blood 2019-02-09 12:32:00 Test Item Value Reference Range Interpretation Comments immature granulocytes, percentage of 0 % total cells, blood (test code = 138468) [facility] Hospitalbasophil count, vphnfbnm3283-68-11 12:32:00 Test Item Value Reference Range Interpretation Comments basophil count, absolute (test 0.0 x10E3/uL 0.0-0.2 code = 31349) [facility] HealthEosinophil Absolute Qnedj0302-24-84 12:32:00 Test Item Value Reference Range Interpretation Comments Eosinophil Absolute Count (test 0.2 X10E3/UL 0.0-0.4 code = 024584) [facility] Hospitalmonocyte count, blood, hzxtshuxx6579-71-82 12:32:00 Test Item Value Reference Range Interpretation Comments monocyte count, blood, automated 0.8 X10E3/UL 0.1-0.9 (test code = 3076) [facility] Hospitallymphocyte count, blood, rktxobikq8235-93-20 12:32:00 Test Item Value Reference Range Interpretation Comments lymphocyte count, blood, 1.7 X10E3/UL 0.7-3.1 automated (test code = 3074) [facility] HospitalAbsolute Fupyhylkoag3076-84-15 12:32:00 Test Item Value Reference Range Interpretation Comments Absolute Neutrophils (test code 10.0 X10E3/UL 1.4-7.0 H = 66953) [facility] Hospitalbasophils as percent of blood uengbertru7198-55-82 12:32:00 Test Item Value Reference Range Interpretation Comments basophils as percent of blood 0 % leukocytes (test code = 2426) [facility] Hospitaleosinophils as percent of blood arrmoaskri0331-66-96 12:32:00 Test Item Value Reference Range Interpretation Comments eosinophils as percent of blood 2 % leukocytes (test code = 4170) [facility] Healthmonocytes as percent of blood dpqjrtwoea3892-96-24 12:32:00 Test Item Value Reference Range Interpretation Comments monocytes as percent of blood 7 % leukocytes (test code = 2421) [facility] Hospitallymphocytes as percent of blood sxbcelfgsr7012-98-37 12:32:00 Test Item Value Reference Range Interpretation Comments lymphocytes as percent of blood 14 % leukocytes (test code = 317) [facility] Hospitalneutrophils as percent of blood otbnmpjnpj3464-71-27 12:32:00 Test Item Value Reference Range Interpretation Comments neutrophils as percent of blood 77 % leukocytes (test code = 316) [facility] Hospitalplatelet mgeoe1027-46-12 12:32:00 Test Item Value Reference Range Interpretation Comments platelet count (test code = 66) 223 X10E3/UL 150-450 [facility] Hospitalred blood cell distribution qnlak2154-57-41 12:32:00 Test Item Value Reference Range Interpretation Comments red blood cell distribution width 13.8 % 12.3-15.4 (test code = 1030) [facility] corpuscular hemoglobin concentration, NJR4274-43-38 12:32:00 Test Item Value Reference Range Interpretation Comments mean corpuscular hemoglobin 32.8 G/DL 31.5-35.7 concentration, RBC (test code = 1029) [facility] corpuscular hemoglobin, QFB3623-60-57 12:32:00 Test Item Value Reference Range Interpretation Comments mean corpuscular hemoglobin, RBC 32.2 pg 26.6-33.0 (test code = 1031) [facility] corpuscular volume, FLZ4417-10-61 12:32:00 Test Item Value Reference Range Interpretation Comments mean corpuscular volume, RBC (test code 98 fL 79-97 H = 315) [facility] Hospitalhematocrit, leeja1325-97-50 12:32:00 Test Item Value Reference Range Interpretation Comments hematocrit, blood (test code = 64) 37.2 % 34.0-46.6 [facility] Hospitalhemoglobin, oyols2269-44-74 12:32:00 Test Item Value Reference Range Interpretation Comments hemoglobin, blood (test code = 65) 12.2 g/dL 11.1-15.9 [facility] Hospitalerythrocyte (RBC) hymyt9200-24-50 12:32:00 Test Item Value Reference Range Interpretation Comments erythrocyte (RBC) count (test 3.79 X10E6/UL 3.77-5.28 code = 67) [facility] Hospitalleukocyte count, iqqzu8023-77-71 12:32:00 Test Item Value Reference Range Interpretation Comments leukocyte count, blood (test 12.9 X10E3/UL 3.4-10.8 H code = 68) [facility] Hospitaldimeric inhibition A, multiples of mimxxl2464-10-14 12:32:00 Test Item Value Reference Range Interpretation Comments dimeric inhibition A, multiples of 2.56 (?) median (test code = 10479) [facility] Hospitalunconjugated cepxtqp1244-06-79 12:32:00 Test Item Value Reference Range Interpretation Comments unconjugated estriol (test code = 0.67 NG/ML 40086) [facility] chorionic gonadotropin, total, serum, multiples of pasiqw9542-97-00 12:32:00 Test Item Value Reference Range Interpretation Comments human chorionic gonadotropin, total, 1.55 (?) serum, multiples of median (test code = 4303) [facility] chorionic gonadotropin, total, grbri1842-34-84 12:32:00 Test Item Value Reference Range Interpretation Comments human chorionic gonadotropin, [address] m[iU]/mL total, serum (test code = 3386) [facility] Hospitalalpha-1 fetoprotein, maternal ,serum, multiples of median 2019-02-09 12:32:00 Test Item Value Reference Range Interpretation Comments alpha-1 fetoprotein, maternal 0.85 (?) ,serum, multiples of median (test code = 4302) [facility] Hospitalalpha-1 fetoprotein, mtqke5691-80-00 12:32:00 Test Item Value Reference Range Interpretation Comments alpha-1 fetoprotein, serum (test 35.3 ng/mL code = 2754) [facility] Hospitalalpha-fetoprotein interpretation of hyangyi1748-80-88 12:32:00 Test Item Value Reference Range Interpretation Comments alpha-fetoprotein *Screen Positive* A interpretation of results (test code = 8076) [facility] Hospitalalcohol, rfgpf1876-96-57 12:32:00 Test Item Value Reference Range Interpretation Comments alcohol, urine (test code = 2458) Negative % Cutoff=0.020 [facility] Hospitalphencyclidine screen, fdraw9876-71-23 12:32:00 Test Item Value Reference Range Interpretation Comments phencyclidine screen, urine (test Negative Cutoff=25 code = 2734) [facility] Healthopiates, urine, obufxqhvcmzgerud6301-56-94 12:32:00 Test Item Value Reference Range Interpretation Comments opiates, urine, semiquantitative Negative Gmrdzj=977 (test code = 3458) [facility] Healthcocaine, tsfgs3678-80-07 12:32:00 Test Item Value Reference Range Interpretation Comments cocaine, urine (test code = 3292) Negative Ighwot=864 [facility] Hospitalcannabinoid screen, eqhvs9187-06-20 12:32:00 Test Item Value Reference Range Interpretation Comments cannabinoid screen, urine (test code Negative Cutoff=50 = 2736) [facility] Hospitalbenzodiazepine screen, qyhby9201-80-19 12:32:00 Test Item Value Reference Range Interpretation Comments benzodiazepine screen, urine (test Negative Xuzhqa=662 code = 2461) [facility] Hospitalbarbiturates screen, lbmbs2525-35-65 12:32:00 Test Item Value Reference Range Interpretation Comments barbiturates screen, urine (test Negative Mpeamb=050 code = 2460) [facility] Hospitalamphetamine screen, unuls4820-69-50 12:32:00 Test Item Value Reference Range Interpretation Comments amphetamine screen, urine (test code Negative Rlpxtd=3866 = 2459) [facility] HospitalHerpes Simplex Virus Mdcxfmt2410-96-16 10:38:39 Test Item Value Reference Range Interpretation Comments Herpes Simplex Virus Genital (test code no = 4258) [facility] Hospitalpregnancy test, jumu1313-97-49 10:38:39 Test Item Value Reference Range Interpretation Comments test, type (test code = home 2106-3) [facility] Hospitalnitrite, urine, fofvytzjqbqgxiek2440-52-78 10:38:39 Test Item Value Reference Range Interpretation Comments nitrite, urine, semiquantitative (test Neg code = 323) [facility] Hospitalketones, urine, by test iidwc2684-46-02 10:38:39 Test Item Value Reference Range Interpretation Comments ketones, urine, by test strip (test Neg code = 322) [facility] Hospitalprotein, urine, semiquantitative (dipstick)2019-02-09 10:38:39 Test Item Value Reference Range Interpretation Comments protein, urine, semiquantitative Neg (dipstick) (test code = 1753-3) [facility] Hospitalbeta HCG, urine, mfafksoyecuynkyw8066-63-12 10:38:39 Test Item Value Reference Range Interpretation Comments beta HCG, urine, semiquantitative positive (test code = 2106-3) [facility] HospitalCystic Fibrosis DNA, Whole Pqnaj4027-98-34 00:00:00 Test Item Value Reference Range Interpretation Comments Cystic Fibrosis DNA, Whole Blood Negative N (test code = 94388) [facility] HospitalSYPHILIS (T. PALLIDUM) KDPVRO8867-71-01 18:26:00 Test Item Value Reference Range Interpretation [...] re sults will follow. HEPATITIS C ANTIBODY LRRCAH7121-05-63 09:10:00 Test Item Value Reference Range Interpretation [...] ELLITUS PATIENTS IS < 7 % HBA1C. [facility] 2002;25:S33-S49 LIPID [id number] 08:06:00 Test Item Value Reference Range Interpretation [...] = 51 MG/DL <100 CALC LDL) MOLECULAR XYPYENRIWA9849-67-03 09:27:00Negative *NA*(12/01/16 4:27 AM)[facility] PXWWPIGKNC0519-61-21 09:27:00Negative *NA*(12/01/16 4:27 AM) [facility] LJYTWWUYPU4821-62-83 09:27:00Urine *NA*(12/01/16 4:27 AM)[facility]annCARDIAC RQVAIMF3600-37-26 14:25:92251Xkmmonnm Sp AFERZGJTTL8654-01-84 12:54:000.4[facility] LwwszmcYWSIUZBFDP6438-34-86 12:54:002.0 [facility] KzjuwijSQOXIHIMMX7308-01-54 12:54:006.4[facility]annHEMATOLOGY 2016-11-26 12:54:000.7[facility] TdejbvuOBTECVKDMD4988-75-21 12:54:000.4[facility] LqtmglgDADFDZEXZN5661-33-79 12:54:0020.8[facility] DhubcwdKUUFPDHRBV9764-24-09 12:54:003.9[facility] YwkynlqDUQITYMRHB5219-17-31 12:54:007.3[facility] Sp TOMILJTJQZ8977-38-47 12:54:0067.6[facility] EytuujsBMXJFWJYXJ0171-80-89 12:54:00 12.9[facility] NklvrfvVKVYXIXHCL9562-53-95 12:54:0033.9[facility]annHEMATOLOGY 2016-11-26 12:54:00 Test Item Value Reference Range Interpretation Comments MCH (test code = MCH) 32.2 pg 27.0-31.0 [facility] UchhdqlATJOKVLGTZ1687-51-15 12:54:0094.9[facility]annHEMATOLOGY 2016-11-26 12:54:0032.9[facility] PfpvxgtHJPTVUBIHI9401-48-64 12:54:13246Syqzxlly TuxkalzOWHXTLJMWK8316-40-91 12:54:009.0[facility] RuhkntoEIOPWNHBJE0895-79-09 12:54:0011.1[facility] PlqcsseEGOHNNECGD4788-59-75 12:54:003.46[facility] Sp SXEPBYIXBY4748-86-82 12:54:009.5[facility] HermannCHEM CJCFZ6303-84-11 07:44:75591 [facility]annCHEM HPVTY0970-04-63 07:44:008.6[facility]annCHEM PANEL 2016-11-26 07:44:02329Lmrxbrja HermannCHEM EQJGW2255-16-61 07:44:003.8[facility]annCHEM XQQUY8946-05-81 07:44:95814Eqpvqdls [facility]annCHEM TTKUQ2491-37-77 07:44:0012.8[facility]annCHEM KZDQW9386-13-55 07:44:006[facility]annCHEM PJDPL1066-80-00 07:44:0023[facility]annCHEM VFOGT5956-53-82 07:44:0063 [facility]annCHEM KLXGA7066-03-19 07:44:000.55[facility]annELECTROLYTES 2016-11-25 11:09:0011.5[facility] WfvkvpaXVHWEKGTWVJP9439-11-05 11:09:77533 [facility] BfusgljJJIRUQBDTKQD7683-07-19 11:09:65498Bmqtuhkq HermannELECTROLYTES 2016-11-25 11:09:0022[facility] YnrrvbtULTKLVEVMOIV8232-73-59 11:09:008.3[facility] AkuaknkSPIZPVCJWTPS7003-11-82 11:09:003.5[facility] DnmfvqmPCWVNKCKHDFU6286-21-75 11:09:70272Fmrpklyw MvlmwycAAZJMNPESHXD7597-46-10 11:09:007[facility] Sp PKPYGMODKVVX7365-50-00 11:09:000.62[facility] FrvzgnoAYEQPXERCUVZ6895-68-84 11:09:67704Noxhfdtt UazkiomNFPOWGFSII5720-41-67 11:09:0021.3[facility] [place] EHANYJYAOA0527-19-16 11:09:000.7[facility] AiphgeiQNESNDBOSN2736-26-73 11:09:002.0 [facility] ByysrrqMPNUNXHGAG0595-95-64 11:09:007.3[facility]annHEMATOLOGY 2016-11-25 11:09:000.8[facility] NcvqhqxCQUQGPZGFA6281-11-26 11:09:003.3[facility] NuxiipaAZJYTUQUOS9955-37-17 11:09:006.3[facility] KxpnisaKFZJQNAYUS7201-01-33 11:09:000.3[facility] ZjtedpiHTTKTMMUKF9417-05-90 11:09:000.1[facility] Sp QGTENCNATI2917-99-94 11:09:0067.3[facility] HlctnnaFUXVJOZEOD3888-80-83 11:09:00 94.7[facility] FtzkukqRDLSNZQPMS5258-01-17 11:09:0032.1[facility]annHEMATOLOGY 2016-11-25 11:09:0011.0[facility] JpgvjgxEJLRLJHKKL9778-37-88 11:09:008.8[facility] TahwatwPMSAIEYAKJ4939-36-98 11:09:003.40[facility] UtltlpbEERKBWHVEC2926-48-84 11:09:009.4[facility] QvncvtvTHAMWRVVML7418-63-62 11:09:00 Test Item Value Reference Range Interpretation Comments MCH (test code = MCH) 32.3 pg 27.0-31.0 [facility] MfrzfjkXIAUEYLSPR1291-74-53 11:09:22449Gxhnhmxh HermannHEMATOLOGY 2016-11-25 11:09:0012.9[facility] RopmeteSZGBWVRWKW5921-64-21 11:09:0034.2[facility] HermannCARDIAC EKWBDFC9601-67-12 01:48:916560Eexyeklo HermannCHEM PANEL 2016-11-24 11:09:002.2[facility] HermannCHEM EWBEC6686-75-64 11:09:000.7[facility]annCHEM WQEUS8834-10-87 11:09:003.2[facility]annCHEM IQRGV8429-52-96 11:09:0014.2[facility]annCHEM WYPJL9606-14-09 11:09:0015[facility] HermannCHEM JHGCA1478-87-67 11:09:53181Yprfdspb HermannCHEM SFARQ9192-74-65 11:09:009 [facility]annCHEM PTAKG6411-25-32 11:09:0060[facility]annCHEM PANEL 2016-11-24 11:09:63646Wtfrefwy HermannCHEM IVJPT4497-79-68 11:09:000.59[facility]annCHEM TMIHU2157-11-92 11:09:0093[facility]annCHEM JXFMB9759-73-28 11:09:000.3[facility]annCHEM QEEHH2948-47-49 11:09:002.2[facility]annCHEM SEMTQ8920-41-32 11:09:17906Oecoyzio HermannCHEM LJXLB5860-01-91 11:09:0060 [facility]annCHEM VBQFK1108-59-32 11:09:005.4[facility]annCHEM PANEL 2016-11-24 11:09:003.2[facility] HermannCHEM MOCEM8380-99-58 11:09:46258Lkkzlxmd HermannCHEM WWMIQ7779-05-63 11:09:0019[facility] HermannCHEM IAEXT1540-24-76 11:09:008.1[facility]annCHEM BYWOM4687-94-58 11:09:002.2[facility] [place] PPLVVXGJNR5837-34-21 11:09:000.1[facility] PbeceadMXSQYQMTUA8592-19-74 11:09:000.3 [facility] FbincohUGTKNVVKYH1879-64-81 11:09:006.1[facility]annHEMATOLOGY 2016-11-24 11:09:0065.8[facility] FffbnyhEBYAPXJJCK1463-99-06 11:09:0024.0[facility] JzoflnqTFRBEZTFJG6144-41-42 11:09:002.0[facility] MyotqypTGYFLVHDPG5003-78-80 11:09:000.5[facility] QeinzqjQXZLUVKDAM3523-57-45 11:09:005.6[facility] Sp AISSVAIJZP7247-44-34 11:09:000.7[facility] GvaxnjaOTLCRMLKDM8516-02-86 11:09:003.4 [facility] MbdmyviUCOKVCUZJI6773-75-26 11:09:009.4[facility]annHEMATOLOGY 2016-11-24 11:09:70557Cfcporir BcbgchyCJIFFQMFTA7253-11-77 11:09:0013.0[facility] BnhthudAJXWHOKNES7286-35-65 11:09:0010.5[facility] XkyccqkHMXVJKMFUQ8308-98-77 11:09:0031.4[facility] GjdgerfKARGMZVPDI8901-25-40 11:09:008.5[facility] Sp IMEBXKNEHU0066-25-53 11:09:0033.6[facility] InivjumDJEYFRHLNO4646-56-39 11:09:00 Test Item Value Reference Range Interpretation Comments MCH (test code = MCH) 32.3 pg 27.0-31.0 [facility] SopwbttEWTJEUOWXS1238-20-25 11:09:0096.2[facility]annHEMATOLOGY 2016-11-24 11:09:003.26[facility]annCARDIAC [id number] 01:17:373046 [facility]annCARD[facility]AC [id number] 01:17:802820Abfleinq HermannBLOOD BANK [id number] 02:37:00Negative (11/22/16 9:37 PM)[facility]annCHEM PANEL 2016-11-23 02:37:000.1[facility] HermannCHEM [id number] 02:37:20546Fvtmmjrl HermannCHEM [id number] 02:37:0073[facility]annCHEM [id number] 02:37:91572Petvnnbx HermannCHEM [id number] 02:37:000.5[facility]annCHEM [id number] 02:37:003.8[facility]annCHEM [id number] 02:37:007.5 [facility]annCHEM [id number] 02:37:000.4[facility]annCHEM PANEL 2016-11-23 02:37:003.7[facility]annCHEM [id number] 02:37:001.0[facility]annCHEM [id number] 02:37:001.0[facility] KgflyqcBKUCRPXLYB2676-23-72 02:37:000.1[facility] MlxaqdaWBLPPXBQCF5027-20-91 02:37:00Normal (11/22/16 9:37 PM) [facility] CenterMcguugwATEEQIOFDX8405-80-80 02:37:00Normal (11/22/16 9:37 PM)[facility] CenterQeznharCRLABOBAJR4839-04-01 02:37:0015.7[facility] CjpfmkuFCSXXGQNMP9185-32-28 02:37:00 Test Item Value Reference Range Interpretation Comments Max Amplitude Rapid (test code = Max 76 mm 52-71 Amplitude Rapid) [facility] CenterRsjykpkVXHTRGWPYQ8945-33-62 02:37:00 Test Item Value Reference Range Interpretation Comments K-time Rapid (test code = K-time 0.8 min 0.6-2.3 Rapid) [facility] CenterStpmtuwHMHBMJVMRE0439-04-73 02:37:00 Test Item Value Reference Range Interpretation Comments Split Point Rapid (test code = Split 0.4 min Point Rapid) [facility] CenterLekuargTPFFNHNPDJ0104-48-81 02:37:00 Test Item Value Reference Range Interpretation Comments Angle Rapid (test code = Angle 80 degrees 64-80 Rapid) [facility] CenterGxmrrwxGFDVFTFCIJ1346-43-14 02:37:00 Test Item Value Reference Range Interpretation Comments R-time Rapid (test code = R-time 0.7 min 0.4-0.7 Rapid) [facility] CenterIikcbvvUGULLKOYVK1000-84-37 02:37:00 Test Item Value Reference Range Interpretation Comments ACT (TEG) Rapid (test code = ACT (TEG) 113 s 86-[address]) [facility] CenterTdzyhacTKRTTWUHYJ7408-13-60 02:37:000.9[facility]annDRUG SCREEN 2016-11-23 02:11:00See Note (11/22/16 [...] HermannURINE AND STOOL 2016-11-23 02:11:001.0[facility]annURINE AND [id number] 02:11:00 Test Item Value Reference Range Interpretation Comments UA Spec Grav (test code = UA Spec 1.025 1 Grav) [facility] [id number] 02:11:00 Test Item Value Reference Range Interpretation Comments UA pH (test code = UA pH) 6.0 1 5.0-8.0 [facility] [id number] 02:11:00Slight Cloudy (11/22/16 9:11 PM) [facility] [id number] 02:11:00Dark Yellow (11/22/16 9:11 PM) [facility] [id number] 02:11:00Negative (11/22/16 9:11 PM) [facility] [id number] 02:11:003-5 (11/22/16 9:11 PM)[facility]annURINE [id number] 02:11:00Negative (11/22/16 9:11 PM)[facility]
--- NOTE | 2020-02-03 09:12 | EDPHYS ---
Physician Documentation [facility] Name: Sarah Santiago Age: 34 yrs Sex: Female : 1985 Arrival Date: 02/03/2020 Time: 08:57 Bed 5 Private MD: KIYA Physician Kelby Rose HPI: 02/02 09:08 This 34 yrs old Female presents to ER via Ambulatory with complaints of Sore jmm Throat. 09:08 The patient presents with sore throat. Onset: The symptoms/episode began/occurred jmm gradually. Modifying factors: The symptoms are alleviated by nothing, the symptoms are aggravated by nothing. Associated signs and symptoms: Pertinent positives: chills, Sore throat. Patient denies cough, sob, vomiting. Historical: - Allergies: :17 No Known Allergies; aa5 - Home Meds: :17 trazodone 100 mg Oral tab [Active]; buspirone 15 mg Oral tab [Active]; Aristada aa5 intramuscular intramuscular [Active]; bupropion HCl Oral [Active]; - PSHx: 09:17 ; Cholecystectomy; aa5 - Immunization history:: Adult Immunizations up to date. - Social history:: Smoking status: Patient reports the use of cigarette tobacco products, smokes one-half pack cigarettes per day. ROS: 09:08 Eyes: Negative for injury, pain, redness, and discharge, Neck: Negative for injury, jmm pain, and swelling, Cardiovascular: Negative for chest pain, palpitations, and edema. 09:08 Abdomen/GI: Negative for abdominal pain, nausea, vomiting, diarrhea, and constipation, Back: Negative for injury and pain. 09:08 Constitutional: Positive for body aches, chills. 09:08 ENT: Positive for sore throat. 09:08 All other systems are negative. Exam: 09:08 Constitutional: This is a well developed, well nourished patient who is awake, alert, jmm and in no acute distress. Head/Face: atraumatic. Eyes: EOMI, no conjunctival erythema appreciated 09:08 Neck: Trachea midline, Supple Chest/axilla: Normal chest wall appearance and motion. Cardiovascular: Regular rate and rhythm. No edema appreciated Respiratory: Normal respirations, no respiratory distress appreciated Abdomen/GI: Non distended, soft Back: Normal ROM Skin: General appearance color normal MS/ Extremity: Moves all extremities, no obvious deformities appreciated, no edema noted to the lower extremities Neuro: Awake and alert, normal gait Psych: Behavior is normal, Mood is normal, Patient is cooperative and pleasant 09:08 ENT: Posterior pharynx: erythema, that is moderate, exudate, that is mild, peritonsillar mass, is not appreciated. Vital Signs: 09:01 BP 114 / 71; Pulse 63; Resp 18 S; Temp 97.6(TE); Pulse Ox 100% on R/A; Pain 0/10; aa5 MDM: 09:08 Patient medically screened. [facility] 09:08 Data reviewed: vital signs, nurses notes. Counseling: I had a detailed discussion with [facility] the patient and/or guardian regarding: the historical points, exam findings, and any diagnostic results supporting the discharge/admit diagnosis, the need for outpatient follow up, to return to the emergency department if symptoms worsen or persist or if there are any questions or concerns that arise at home. ED course: Patient is alert and non toxic in appearance in the ED. Patient is advised to return to the ED if symptoms worsen. Patient understood and agrees with the plan of care. . 02/02 09:08 Order name: Strep; Complete Time: 10:01 [facility] 02/02 09:28 Order name: Throat Culture EDNY Administered Medications: No medications were administered Disposition: 02/03 07:27 Co-signature as Attending Physician, Kelby Rose MD I agree with the assessment and michell plan of care. Disposition: 02/03/20 09:12 Discharged to Home. Impression: Acute pharyngitis. - Condition is Stable. - Discharge Instructions: Pharyngitis. - Prescriptions for Amoxicillin 875 mg Oral Tablet - take 1 tablet by ORAL route every 12 hours for 10 days; 20 tablet. - Medication Reconciliation Form, Thank You Letter, Antibiotic Education, Prescription Opioid Use form. - Follow up: Private Physician; When: 2 - 3 days; Reason: Recheck today's complaints, Continuance of care, Re-evaluation by your physician. Signatures: Dispatcher [employer] EDKelby Rincon MD MD cha Mickail, Joel, PA PA Agnieszka Watkins, RN RN aa5 Corrections: (The following items were deleted from the chart) 02/02 09:57 09:12 02/03/2020 09:12 Discharged to Home. Impression: Acute pharyngitis. Condition is aa5 Stable. Forms are Medication Reconciliation Form, Thank You Letter, Antibiotic Education, Prescription Opioid Use. Follow up: Private Physician; When: 2 - 3 days; Reason: Recheck today's complaints, Continuance of care, Re-evaluation by your physician. alison
--- NOTE | 2020-02-03 09:12 | ER ---
Nurse's Notes [facility] Name: Sarah Santiago Age: 34 yrs Sex: Female : 1985 Arrival Date: 02/03/2020 Time: 08:57 Bed 5 Private MD: Diagnosis: Acute pharyngitis Presentation: 02/02 09:01 Chief complaint: Patient states: "I've been feeling hot for like 3 days like I have a aa5 fever but I don't". Pt reports sore throat and ears burn when she swallows. Pt is from [facility]. 09:01 Coronavirus screen: Client denies travel out of the [place] in the last 14 days. sore aa5 throat. Ebola Screen: Patient negative for fever greater than or equal to 101.5 degrees Fahrenheit, and additional compatible Ebola Virus Disease symptoms. Initial Sepsis Screen: Does the patient meet any 2 criteria? No. Patient's initial sepsis screen is negative. Does the patient have a suspected source of infection? No. Patient's initial sepsis screen is negative. Risk Assessment: Do you want to hurt yourself or someone else? Patient reports no desire to harm self or others. Onset of symptoms was January 2020. 09:01 Acuity: HENRI 4 aa5 09:01 Method Of Arrival: Ambulatory aa5 Historical: - Allergies: 09:17 No Known Allergies; aa5 - Home Meds: 09:17 trazodone 100 mg Oral tab [Active]; buspirone 15 mg Oral tab [Active]; Aristada aa5 intramuscular intramuscular [Active]; bupropion HCl Oral [Active]; - PSHx: 09:17 ; Cholecystectomy; aa5 - Immunization history:: Adult Immunizations up to date. - Social history:: Smoking status: Patient reports the use of cigarette tobacco products, smokes one-half pack cigarettes per day. Screenin:17 Abuse screen: Denies threats or abuse. Nutritional screening: No deficits noted. aa5 Tuberculosis screening: No symptoms or risk factors identified. Fall Risk None identified. Assessment: 09:05 General: Appears comfortable, Behavior is calm, cooperative. Pain: Denies pain. Neuro: aa5 Level of Consciousness is awake, alert, obeys commands, Oriented to person, place, time, situation. Cardiovascular: Heart tones S1 S2 present. Respiratory: Airway is patent Respiratory effort is even, unlabored, Respiratory pattern is regular, symmetrical, Denies cough, shortness of breath. GI: No signs and/or symptoms were reported involving the gastrointestinal system. : No signs and/or symptoms were reported regarding the genitourinary system. EENT: Throat is reddened. Derm: Skin is pink, warm \\T\\ dry. Musculoskeletal: Range of motion: intact in all extremities. 09:55 Reassessment: Patient is alert, oriented x 3, equal unlabored respirations, skin aa5 warm/dry/pink. Vital Signs: 09:01 BP 114 / 71; Pulse 63; Resp 18 S; Temp 97.6(TE); Pulse Ox 100% on R/A; Pain 0/10; aa5 ED Course: 08:57 Patient arrived in ED. bg2 09:01 Arm band placed on. aa5 09:01 Patient has correct armband on for positive identification. Bed in low position. Call aa5 light in reach. Side rails up X 1. 09:02 Anselmo Gooden PA is PHCP. alison 09:02 Kelby Rose MD is Attending Physician. [facility] 09:06 Agnieszka Lake, RN is Primary Nurse. aa5 09:10 Strep swab sent to lab. aa5 09:15 Triage completed. aa5 09:55 No provider procedures requiring assistance completed. IV discontinued, intact, aa5 bleeding controlled, No redness/swelling at site. Pressure dressing applied. Administered Medications: No medications were administered Outcome: 09:12 Discharge ordered by . [facility] :55 Discharged to [facility] aa5 09:55 Condition: stable :55 Discharge instructions given to patient, Instructed on discharge instructions, follow up and referral plans. medication usage, Demonstrated understanding of instructions, follow-up care, medications, Prescriptions given X 1. 09:57 Patient left the ED. aa5 Signatures: Anselmo Gooden PA PA jmm Calderon, Audri, RN RN aa5 Susana Cage bg2
[2020-02-03 10:03] VITALS: BP 114/71; TEMP 97.6; O2SAT 100
== END 2020-02-03 09:57 | disposition home or self-care (01) ==
LOC: ER 08:53
DX: J02.9 Acute pharyngitis, unspecified (principal)
CPT/HCPCS: 87070; 87081; 99283